=== PATIENT | female | born 1950 | race Caucasian/White ===

== ENCOUNTER → 2016-12-25 | Outpatient (CLI) | payer MEDICARE, OTHER ==
--- NOTE | 2016-12-25 08:58 | US ---
EXAMINATION TYPE: US abdomen complete DATE OF EXAM: 12/25/2016 8:38 AM COMPARISON: NONE CLINICAL HISTORY: Abnormal MRI R93.8. Patient stated MRI was done at [facility] and resul ts showed liver masses; diabetic; HTN; Ht 5'2, Wt 205lbs EXAM MEASUREMENTS: Liver Length: 19.2 cm Gallbladder Wall: 0.2 cm CBD: 0.4 cm Spleen: 9.7 cm Right Kidney: 11.4 x 5.6x 4.7 cm Left Kidney: 12.1 x 5.2 x 5.8 cm TECHNOLOGIST IMPRESSION: exam is limitedly seen due to patient body habitus Pancreas: hyperechoic Liver: enlarged; multiple liver cysts with largest in left lobe = 2.2 x 2.7 x 2.8cm and largest righ t lobe cyst = 2.0 x 2.1 x 1.3cm Gallbladder: full of shadowing stones resulting in sonographic RIK sign at anterior wall Evidence for sonographic Peres's sign: no CBD: wnl Spleen: wnl Right Kidney: no hydro or masses seen Left Kidney: medial mid renal cyst = 2.3 x 2.0 x 1.6cm Upper IVC: wnl Abd Aorta: wnl IMPRESSION: 1. Multiple simple appearing hepatic cysts. 2. 2.1 cm lesion in the anterior segment of the right lobe of the liver does not meet the requirement s of a simple cyst. 3. Simple appearing left renal cyst. RECOMMENDATION: CT versus MRI of the liver.
== END | disposition home or self-care (01) ==
LOC: RADUSWWP 07:57
PROVIDERS: ATTEND Family Medicine
DX: K76.89 Other specified diseases of liver (principal); N28.1 Cyst of kidney, acquired
CPT/HCPCS: 76700

== ENCOUNTER 2017-02-16 07:04 | Day surgery (SDC) | payer MEDICARE, OTHER ==
[2017-02-14 15:48] VITALS: BMI 85.9
[~2017-02-16 07:04] MED LIST: LACTATED RINGERS 1,000 ML IV SCH; LIDOCAINE 1% 20 ML VIAL (10MG/ML) FOR IV START INTRADERMA PRN
[2017-02-16 07:20] VITALS: TEMP 98
[2017-02-16] MEDS ORDERED: LACTATED RINGERS 1,000 ML IV ONE (07:28)
[2017-02-16 07:31] LABS: Glucose,Whole Blood 128 mg/dL (75-99)
[2017-02-16] MEDS ORDERED: PROPOFOL 10 MG/ML 20 ML VIAL IV ONE (07:36)
[2017-02-16 08:14] VITALS: RESP 18
--- NOTE | 2017-02-16 08:18 | P.OP ---
Date of Procedure: 02/16/17 Preoperative Diagnosis: Screening colonoscopy Postoperative Diagnosis: Colon polypsx3 Sigmoid diverticulosis Gluteal soft tissue mass Anal skin tags Procedure(s) Performed: Colonoscopy with hot snare polypectomy 3 Implants: NA Anesthesia: ANTHONYA Surgeon: Fabiana Dc Pathology: other Condition: stable Disposition: PACU Indications for Procedure: 66 years old female presents for first screening colonoscopy. No change in bowel habits. No family history of colon cancer. Informed consent obtained and patient elects to undergo colonoscopy with possible biopsy Operative Findings: 0.5 cm cecal polyp. 1 x 1.5 cm pedunculated sigmoid colon polyp. 0.5 cm rectal polyp Description of Procedure: The patient was brought to the endoscopy suite and placed in lateral decubitus position. IV sedation was given as per anesthesia team. Patient was on continuous vitals and pulse oximetry monitoring throughout the procedure. A timeout was performed to verify correct patient and correct procedure. Perianal examination showed anal skin tag. 2x3 cm soft tissue mass in the left gluteal area. Digital rectal examination was performed. No masses or gross blood. A well-lubricated Olympus colonoscope was passed per rectally and was gradually advanced beyond the sigmoid colon, splenic flexure, transverse colon, hepatic flexure and cecum. The ileocecal valve was visualized as well as the appendiceal orifice . The colonoscope was gradually withdrawn inspecting all the mucosal surfaces. Bowel prep was good. 0.5 cm single polyp in the cecum which was removed using hot snare polypectomy. 1 x 1.5 cm but indurated polyp in the sigmoid colon which was also removed using hot snare polypectomy. Sigmoid diverticulosis noted without any evidence of acute diverticulitis. Single 0.5 cm polyp in the rectum which was removed using hot snare polypectomy The scope was gradually withdrawn and retroflexed in the rectum . No internal hemorrhoids seen. Total withdrawal time was greater than 10 minutes . Patient tolerated the procedure well and was taken to post anesthesia care unit in stable condition. Recommend repeat colonoscopy in 5 years . Final Pathologic Diagnosis A. CECUM, BIOPSY: INFLAMMATORY POLYP. B. COLON, 30 CM, BIOPSY: ADENOMA WITH SURFACE MUCOSAL EROSION. C. RECTUM, BIOPSY: FEATURES CONSISTENT WITH CAUTERIZED ADENOMA, EVALUATION OF THE SPECIMEN IS LIMITED GIVEN MARKED CAUTERY ARTIFACT.
[2017-02-16 08:29] LABS: Glucose,Whole Blood 114 mg/dL (75-99)
[2017-02-16 08:37] VITALS: BP 132/72; PULSE 58
== END 2017-02-16 09:05 | disposition home or self-care (01) ==
LOC: ORWHC2ENDO 07:04
PROVIDERS: ATTEND Surgery
DX: Z12.11 Encounter for screening for malignant neoplasm of colon (principal); K51.40 Inflammatory polyps of colon without complications; D12.5 Benign neoplasm of sigmoid colon; K62.1 Rectal polyp; K57.30 Diverticulosis of large intestine without perforation or abscess without bleeding; K64.4 Residual hemorrhoidal skin tags; R22.2 Localized swelling, mass and lump, trunk; E78.2 Mixed hyperlipidemia; E11.39 Type 2 diabetes mellitus with other diabetic ophthalmic complication; H40.9 Unspecified glaucoma; I10 Essential (primary) hypertension; M19.90 Unspecified osteoarthritis, unspecified site; K80.20 Calculus of gallbladder without cholecystitis without obstruction; E66.01 Morbid (severe) obesity due to excess calories; Z68.41 Body mass index [BMI] 40.0-44.9, adult; Z79.4 Long term (current) use of insulin; Z79.1 Long term (current) use of non-steroidal anti-inflammatories (NSAID); Z79.84 Long term (current) use of oral hypoglycemic drugs; Z79.899 Other long term (current) drug therapy; Z90.49 Acquired absence of other specified parts of digestive tract; Z90.710 Acquired absence of both cervix and uterus
CPT/HCPCS: 45385; 88305; J2704

== ENCOUNTER → 2017-02-20 | Outpatient (CLI) | payer MEDICARE, OTHER ==
[2017-02-20 15:37] LABS: EKG EKG PERFORMED
[2017-02-20 16:11] LABS: Basophils # (A) 0.1 k/uL (0-0.2); Basophils % (A) 1 %; CH 31.7; CHCM 34.4; Eosinophils # (A) 0.2 k/uL (0-0.7); Eosinophils % (A) 2 %; HCT 41.7 % (34.0-46.0); HDW 3.19; HGB 14.2 gm/dL (11.4-16.0); Luc # (Auto) 0.17; Luc % (Auto) 2; Lymphocytes # (A) 2.1 k/uL (1.0-4.8); Lymphocytes % (A) 23 %; MCH 31.4 pg (25.0-35.0); MCV 92.5 fL (80.0-100.0); Mean Platelet Volume 7.5; Monocytes # (A) 0.5 k/uL (0-1.0); Monocytes % (A) 6 %; Neutrophils % (A) 67 %; RBC 4.51 m/uL (3.80-5.40); RDW 14.5 % (11.5-15.5); WBC (Perox) 8.91
[2017-02-20 16:20] LABS: ALT 30 U/L (9-52); AST 21 U/L (14-36); Alkaline Phosphatase 115 U/L (38-126); Anion Gap 12 mmol/L; Blood Urea Nitrogen 19 mg/dL (7-17); Carbon Dioxide 29 mmol/L (22-30); Chloride 102 mmol/L (98-107); Glucose 197 mg/dL (74-99); Non-African American GFR(MDRD) >60 (>60 ml/min/1.73 sqM); Potassium 3.3 mmol/L (3.5-5.1); Sodium 143 mmol/L (137-145); Total Bilirubin 0.7 mg/dL (0.2-1.3); Total Protein 7.1 g/dL (6.3-8.2)
== END ==
LOC: LABPAT 15:19
PROVIDERS: ATTEND Family Medicine
DX: Z01.818 Encounter for other preprocedural examination (principal)
CPT/HCPCS: 80053; 85025; 93005

== ENCOUNTER 2017-02-23 10:42 | Day surgery (SDC) | payer MEDICARE, OTHER ==
[2017-02-22 09:00] VITALS: BMI 38.9
--- NOTE | 2017-02-23 09:45 | P.GSHP ---
History of Present Illness H&P Date: 02/23/17 66 yrs old female presents with intermittent RUQ pain aggravated with fatty food. She has MRI for backpain with incidental findings of liver cysts . US abdomen showed liver cysts and gallstones. No prior colonoscopy. ROS Additionally reports: Constitutional: No fever, chills or rigors. No weight loss or loss of appetite. HEENT: No difficulty with hearing, vision and swallowing. Lymphatic: No axillary, inguinal and cervical swellings. Endocrine: No thyroid disorders. Has history of diabetes. Respiratory: No chest pain, shortness of breath, and cough. No hemoptysis. Cardiovascular: No palpitations, irregular HR Gastrointestinal: Denies heartburn. No change in bowel habits. No nausea or vomiting. Genitourinary: No increase in urinary frequency or urgency. No hematuria. Musculoskeletal: Chronic back pain, joint stiffness or pain. Neurologic: No history of seizure disorder and headaches. Psychiatric: Denies depression or anxiety . No suicidal ideation. Hematologic: Denies any abnormal mucosal bleeding or easy bruising. Physical Exam Patient is a 66-year-old female. Constitutional: General Appearance: well-nourished, well-developed, and obese. Level of Distress: NAD. Ambulation: ambulating normally. Psychiatric: Insight: good judgement. Orientation: to time, place, and person. Head: Head: normocephalic and atraumatic. Eyes: Lids and Conjunctivae: no discharge or pallor and non-injected. Sclerae: non-icteric. ENMT: Oropharynx: moist mucous membranes. Abdomen: Bowel Sounds: normal. Inspection and Palpation: no tenderness or guarding and soft and non-distended. Musculoskeletal:: Motor Strength and Tone: normal and normal tone. Joints, Bones , and Muscles: normal movement of all extremities. Extremities: no cyanosis or edema. Neurologic: Gait and Station: normal gait and station. Cranial Nerves: grossly intact. Skin: Inspection and palpation: Bilateral pitting edema upto ankles. Assessment / Plan 1. Symptomatic cholelithiasis 2. Informed consent obtained from the patient after explaining the risks, benefits and potential complications of laparoscopic cholecystectomy including bleeding, infection, DVT , inadvertent bile duct injury and possibility of converting to open 3. Patient demonstrated understanding of the procedure and agreed to undergo lap braydon possible open 4. Expected post op course discussed including no heavy lifting >10 lbs for 6 weeks post surgery Preop orders: 1. Ancef 2 gm IVPB x1 2. Bilateral lower extremity SCDs 3. Heparin 5000 Units SQ injection x1 1. Screening for malignant neoplasm of colon Z12.11: Encounter for screening for malignant neoplasm of colon 2. Cholelithiasis without obstruction K80.20: Calculus of gallbladder without cholecystitis without obstruction 3. Type 2 diabetes mellitus without complication E11.9: Type 2 diabetes mellitus without complications TYPE 2 DIABETES: CARE INSTRUCTIONS 4. Body mass index 40+ - severely obese Z68.41: Body mass index (BMI) 40.0-44.9, adult 5. Essential hypertension I10: Essential (primary) hypertension HIGH BLOOD PRESSURE: CARE INSTRUCTIONS LEARNING ABOUT HIGH BLOOD PRESSURE Past Medical History Past Medical History: Diabetes Mellitus, Hyperlipidemia, Hypertension Additional Past Medical History / Comment(s): GALLBLADDER DISORDER History of Any Multi-Drug Resistant Organisms: None Reported Past Surgical History: Appendectomy, Section, Hysterectomy, Tonsillectomy Additional Past Surgical History / Comment(s): COLONOSCOPY. CYST REMOVED FROM NECK AREA Past Anesthesia/Blood Transfusion Reactions: No Reported Reaction Past Psychological History: No Psychological Hx Reported Smoking Status: Never smoker Past Alcohol Use History: None Reported Past Drug Use History: None Reported - Past Family History Mother Family Medical History: No Reported History Medications and Allergies Home Medications Medication Instructions Recorded Confirmed Type Atenolol [Tenormin] 50 mg PO HS 02/14/17 02/22/17 History Atorvastatin Calcium [Lipitor] 20 mg PO HS 02/14/17 02/22/17 History Glimepiride [Amaryl] 4 mg PO AC-BRKFST 02/14/17 02/22/17 History Insulin NPH Human Isophane 38 unit SQ AC-SUPPER 02/14/17 02/22/17 History [NovoLIN N] Insulin NPH Human Isophane 42 unit SQ AC-BRKFST 02/14/17 02/22/17 History [NovoLIN N] Losartan/Hydrochlorothiazide 1 tab PO HS 02/14/17 02/22/17 History [Losartan-Hctz 100-25 mg Tab] Naproxen 500 mg PO Q12HR 02/14/17 02/22/17 History Potassium Chloride [Klor-Con 20] 20 meq PO DAILY 02/14/17 02/22/17 History amLODIPine [Norvasc] 10 mg PO HS 02/14/17 02/22/17 History metFORMIN HCL [Glucophage] 1,000 mg PO BID 02/14/17 02/22/17 History Allergies Allergy/AdvReac Type Severity Reaction Status Date / Time No Known Allergies Allergy Verified 02/22/17 08:52
[~2017-02-23 10:42] MED LIST changes: +DEXAMETHASONE SOD PHOSPHATE 10 MG/ML 1 ML VIAL IV ONE; +HYDROmorphone 1 MG/ML 1 ML SYRINGE IVP PRN; -LIDOCAINE 1% 20 ML VIAL (10MG/ML) FOR IV START INTRADERMA PRN; +MIDAZOLAM 2 MG/2 ML VIAL IV PRN; +ceFAZolin 2 GM in SODIUM CHLORIDE 0.9% 100 ML IVPB ONE
[2017-02-23 11:36] LABS: Glucose,Whole Blood 155 mg/dL (75-99)
[2017-02-23] MEDS: ONDANSETRON 4 MG/2 ML VIAL IVP ONE ×2 (11:39→14:30)
[2017-02-23] MEDS ORDERED: LIDOCAINE 1% 20 ML VIAL (10MG/ML) FOR IV START INTRADERMA ONE (11:39)
[2017-02-23] MEDS ORDERED: POTASSIUM CHLORIDE 20 MEQ, LIDOCAINE 2% INJ 20 MG in SODIUM CHLORIDE 0.9% 100 ML IVPB SCH (12:00)
[2017-02-23] MEDS ORDERED: HEPARIN SODIUM,PORCINE 5,000 UNIT/ML 1 ML VIAL SQ ONE (12:02)
[2017-02-23] MEDS ORDERED: GLYCOPYRROLATE 0.2 MG/ML 2 ML VIAL ONE (12:27)
[2017-02-23] MEDS ORDERED: fentaNYL (PF) 50 MCG/ML 2 ML AMP ONE (12:27)
[2017-02-23] MEDS ORDERED: POTASSIUM CHLORIDE 2 MEQ/ML 20 ML VIAL ONE (12:27)
[2017-02-23] MEDS ORDERED: ROCURONIUM BROMIDE 10 MG/ML 10 ML VIAL IV ONE (12:27)
[2017-02-23] MEDS ORDERED: PROPOFOL 10 MG/ML 20 ML VIAL IV ONE (12:27)
[2017-02-23] MEDS ORDERED: MIDAZOLAM 2 MG/2 ML VIAL ONE (12:27)
[2017-02-23] MEDS ORDERED: SUCCINYLCHOLINE CHLORIDE 100 MG/5 ML SYR IV ONE (12:27)
[2017-02-23] MEDS ORDERED: NEOSTIGMINE 1 MG/ML 10 ML VIAL ONE (12:27)
[2017-02-23] MEDS ORDERED: BUPIVACAIN-EPI 0.25%-1:200,000 30 ML VIAL SQ ONE ×2 (12:53)
[2017-02-23 14:26] VITALS: TEMP 97.2
[2017-02-23 14:31] LABS: Glucose,Whole Blood 164 mg/dL (75-99)
[2017-02-23 14:32] VITALS: RESP 16
--- NOTE | 2017-02-23 14:47 | P.OP ---
Date of Procedure: 02/23/17 Preoperative Diagnosis: Symptomatic cholelithiasis Morbid obesity BMI 39 Soft tissue mass left buttock Postoperative Diagnosis: Same Procedure(s) Performed: Laparoscopic cholecystectomy Excision of soft tissue mass left buttock Anesthesia: VIVIANA, local Surgeon: Fabiana Dc Estimated Blood Loss (ml): 5 Pathology: other Condition: stable Disposition: PACU Indications for Procedure: 66 years old female presented with right upper quadrant pain. Ultrasound showed gallstones. She also had a soft tissue mass in the left buttock area. Informed consent obtained and patient elected to undergo laparoscopic cholecystectomy and possible open and excision of soft tissue mass left buttock. Description of Procedure: The patient was brought to the operating room and placed in supine position with both arms out. General anesthesia with endotracheal intubation was performed as per anesthesia team. Chlorhexidine was used to prep the abdomen followed by application of sterile drapes. A timeout was performed to verify correct patient and correct procedure. Patient was confirmed to receive perioperative IV antibiotics , heparin 5000 units subcutaneous injection and bilateral SCDs were placed. A 5 mm skin incision was made below the left costal margin at the anterior axillary line. A Veress needle was inserted and pneumoperitoneum was established to a pressure of 15 mmHg. A 5 mm Optiview trocar was loaded on a 5 mm 30 laparoscope and the peritoneal cavity was entered under direct vision using the Optiview technique. Additional 5 mm trocar was placed in the supraumbilical location and two 5 mm trocars along the right subcostal margin. The left 5 mm trocar was upsized to 10mm. The patient was placed in reverse Trendelenburg with right side up. The fundus of the gallbladder was grasped with an atraumatic grasper and was retracted over the dome of the liver. The infundibulum was grasped with an atraumatic grasper and retracted towards the pelvis to expose the Calot's triangle. Lateral and medial peritoneal attachment of the gallbladder bladder was dissected. Circumferential dissection was carried out around the cystic artery and the cystic duct to obtain adequate length for clip application. All the surrounding fibrofatty tissue were removed. Critical view was obtained with cystic duct and cystic artery as the only two structures entering the gallbladder. Two clips were applied on the patient's side and one on the specimen side on the cystic duct first followed by the cystic artery. Endoshears were used to divide the cystic duct and the cystic artery. The gallbladder was taken off the liver bed using a L-hook. It was placed in an endocatch specimen bag and removed through the 10mm port. The gallbladder was passed off as a specimen. The abdominal cavity was inspected. The clips on the cystic duct and cystic artery stump were intact and no bleeding noted from the liver bed. All the trocar sites were examined and no evidence of bleeding. The 10mm port site was closed with two transfascial sutures of 0 Vicryl using a Dante Meme device. The pneumoperitoneum was evacuated and all the trocars were removed. Local anesthetic was infiltrated along the trocar sites and incisions were closed using 4-0 Monocryl followed by application of Dermabond skin glue. The sponge, instrument and needle count were correct x2. Patient was then positioned in lateral decubitus position. Chlorhexidine was used to prep the left buttock. A 3 x 4 cm soft tissue mass was identified in the left buttock. This was circumferentially excised. This was dissected off the surrounding subcu tissues tissue. Final post-excisional measurements were 3 x 4 x 2 cm. This was closed in 2 layers using interrupted sutures of 3-0 Vicryl and vertical mattress sutures of 3-0 nylon. The sponge, instrument and needle count were correct 2. Patient was extubated and taken to post anesthesia care unit in stable condition.
[2017-02-23] MEDS ORDERED: METOCLOPRAMIDE 5 MG/ML 2 ML VIAL IVP ONE (14:53)
[2017-02-23 16:47] VITALS: PULSE 80
[2017-02-23 16:56] VITALS: BP 145/69
== END 2017-02-23 17:37 | disposition home or self-care (01) ==
LOC: OR 10:42
PROVIDERS: ATTEND Surgery
DX: K80.10 Calculus of gallbladder with chronic cholecystitis without obstruction (principal); E66.01 Morbid (severe) obesity due to excess calories; Z68.39 Body mass index [BMI] 39.0-39.9, adult; D17.1 Benign lipomatous neoplasm of skin and subcutaneous tissue of trunk; M79.89 Other specified soft tissue disorders; I10 Essential (primary) hypertension; E11.9 Type 2 diabetes mellitus without complications; Z79.84 Long term (current) use of oral hypoglycemic drugs; Z79.4 Long term (current) use of insulin; Z79.891 Long term (current) use of opiate analgesic; Z79.899 Other long term (current) drug therapy
CPT/HCPCS: 47562; 21931; 88304; 88305; 84132; J2250; J1644; J1100; J2710; J2765; J0690; J2405; J3480; J3010; J0330; J2704

== ENCOUNTER → 2018-06-10 | Outpatient (CLI) | payer MEDICARE, OTHER ==
--- NOTE | 2018-06-10 15:40 | US ---
EXAMINATION TYPE: US venous doppler duplex LE BI DATE OF EXAM: 06/10/2018 3:24 PM COMPARISON: NONE CLINICAL HISTORY: R60.0 Edema bilateral lower extremities. Bilateral leg pain. No redness. No hx of blood clots. Not on blood thinners. SIDE PERFORMED: Bilateral TECHNIQUE: The lower extremity deep venous system is examined utilizing real time linear array sonog baylee with graded compression, doppler sonography and color-flow sonography. VESSELS IMAGED: External Iliac Vein (EIV) Common Femoral Vein Deep Femoral Vein Greater Saphenous Vein * Femoral Vein Popliteal Vein Small Saphenous Vein * Proximal Calf Veins (* superficial vessels) Limited exam due to patient body habitus Right Leg: Negative for DVT Left Leg: Negative for DVT Grayscale, color doppler, spectral doppler imaging performed of the deep veins of the lower extremiti es. There is normal flow, compressibility, vascular waveforms. IMPRESSION: Slightly limited exam due to patient body habitus, however no sonographic evidence of de ep venous thrombosis is seen within either lower extremity.
[2018-06-10 16:01] LABS: Basophils % (A) 0 %; Eosinophils # (A) 0.2 k/uL (0-0.7); Eosinophils % (A) 2 %; HCT 39.2 % (34.0-46.0); HGB 13.4 gm/dL (11.4-16.0); Lymphocytes # (A) 1.3 k/uL (1.0-4.8); Lymphocytes % (A) 16 %; MCH 30.9 pg (25.0-35.0); MCHC 34.2 g/dL (31.0-37.0); MCV 90.3 fL (80.0-100.0); Mean Platelet Volume 7.6; Monocytes # (A) 0.5 k/uL (0-1.0); Monocytes % (A) 6 %; Neutrophils # (A) 5.7 k/uL (1.3-7.7); Neutrophils % (A) 74 %; Platelet Count 263 k/uL (150-450); RBC 4.34 m/uL (3.80-5.40); RDW 13.3 % (11.5-15.5); WBC 7.7 k/uL (3.8-10.6)
[2018-06-10 16:17] LABS: Anion Gap 9 mmol/L; Blood Urea Nitrogen 19 mg/dL (7-17); Calcium 10.8 mg/dL (8.4-10.2); Carbon Dioxide 30 mmol/L (22-30); Chloride 101 mmol/L (98-107); Glucose 218 mg/dL (74-99); Potassium 3.3 mmol/L (3.5-5.1); Sodium 140 mmol/L (137-145)
== END | disposition home or self-care (01) ==
LOC: RADUSMAIN 14:47
PROVIDERS: ATTEND Physician Assistant
DX: R60.0 Localized edema (principal)
CPT/HCPCS: 36415; 80048; 85025; 93970

== ENCOUNTER → 2018-11-04 | Outpatient (CLI) | payer MEDICARE, OTHER ==
--- NOTE | 2018-11-07 11:32 | MM ---
Reason for exam: screening (asymptomatic). Last mammogram was performed 2 years and 1 month ago. History: Patient is postmenopausal. Excisional biopsy of the left breast, January 04, 2007. Took estrogen for 1 year beginning at age 50. Physical Findings: A clinical breast exam by your physician is recommended on an annual basis and results should be correlated with mammographic findings. MG 3D Screening Mammo W/Cad Bilateral CC and MLO view(s) were taken. Prior study comparison: October 16, 2016, bilateral MG 3d screening mammo w/cad. November 14, 2013, bilateral digital screening mammo w/CAD. The breast tissue is heterogeneously dense. This may lower the sensitivity of mammography. Finding: There are typically benign round, linear calcifications in both breasts. There is no discrete abnormality. ASSESSMENT: Benign, BI-RAD 2 RECOMMENDATION: Routine screening mammogram of both breasts in 1 year.
== END | disposition home or self-care (01) ==
LOC: RADMAMWWP 09:10
PROVIDERS: ATTEND Family Medicine
DX: Z12.31 Encounter for screening mammogram for malignant neoplasm of breast (principal)
CPT/HCPCS: 77063; 77067

== ENCOUNTER → 2018-11-15 | Outpatient (CLI) | payer MEDICARE, OTHER ==
--- NOTE | 2018-11-18 08:08 | BD ---
EXAMINATION TYPE: Axial Bone Density DATE OF EXAM: 11/15/2018 COMPARISON: 10/16/2016 DEXA bone scan. CLINICAL HISTORY: Asymptomatic postmenopausal female. Height: 61.5 IN Weight: 224 LBS RISK FACTORS HISTORY OF: Active: YES Postmenopausal woman: AGE 48 Take estrogen and/or progesterone medications: NOT NOW How long: AGE 50 - 49 MEDICATIONS: Thyroid Medications: YES Which medication: Levothyroxine How Lon MONTHS Additional Medications: VIT D, LEVOTHYROXINE, AMLODIPINE, ATENOLOL, ATORVASTATIN, GLIMEPIRIDE, HYDROC ODONE, KLOR-CON, LANTUS U 100, LATANOPROST, LOSARTAN, METFORMIN, NAPROXEN, NOVOLIN EXAM MEASUREMENTS: Bone mineral densitometry was performed using the Switchcam System. Bone mineral density as measured about the Lumbar spine is: ----- L1-L4(G/cm2): 1.137 T Score Values are as follows: ----- L2: -0.7 ----- L3: 0.5 ----- L4: -0.6 ----- L1-L4: -0.4 Bone mineral density has: Decreased -0.7% since study of: 10/16/2016 Bone mineral density about the R hip (g/cm2): 0.840 Bone mineral density about the L hip (g/cm2): 0.915 T Score values are as follows: -----R Neck: -1.4 -----L Neck: -0.9 -----R Total: -0.8 -----L Total: -0.3 Bone mineral density has: Decreased -1.3% since study of: 10/16/2016 IMPRESSION: Osteopenia (T Score between -2.5 and -1) femoral neck level right hip. There is slightly increased risk of fracture and the patient may be considered for treatment. Re-Screen 2-5 years. NOTE: T-SCORE=SD OF THE YOUNG ADULT MEAN.
== END | disposition home or self-care (01) ==
LOC: RADBDWWP 07:19
PROVIDERS: ATTEND Family Medicine
DX: M85.80 Other specified disorders of bone density and structure, unspecified site (principal); Z78.0 Asymptomatic menopausal state
CPT/HCPCS: 77080

== ENCOUNTER → 2019-02-10 | Outpatient (CLI) | payer MEDICARE, OTHER ==
[2019-02-10 09:19] LABS: Blood Urea Nitrogen 20 mg/dL (7-17)
--- NOTE | 2019-02-10 10:42 | CT ---
EXAMINATION TYPE: CT abdomen w con DATE OF EXAM: 02/10/2019 HISTORY: Liver cyst per order. Spots on liver found by back DrTessa during pain injections per patient. CT DLP: 2331.4mGycm Automated Exposure Control for Dose Reduction was Utilized. CONTRAST: CT scan of the abdomen is performed with IV Contrast, patient injected with 100 mL of Isovue 300. COMPARISON: Complete abdominal ultrasound December 25, 2016 FINDINGS: LUNG BASES: There is tiny right pleural effusion there is left basilar linear scarring and/or atelect asis. There is right midlung linear scarring and/or atelectasis axial image 2. Few scattered small no dules right lung are present right lung axial images 4, 6, and 8. Largest axial image 4 measures 4 x 3 mm. Cardiomegaly is present. Small to tiny pericardial effusion is seen inferiorly. LIVER/GB: Centrally in the liver there is 2.8 cm simple appearing cyst seen axial image 21. There are smaller hypodense lesions scattered throughout the liver, I do identify roughly 7-8 additional lesio ns. Additional lesions are too small to further characterize but favor simple cysts. Cholecystectomy clips are present. PANCREAS: Mild generalized fat replaced atrophy of pancreas is seen. SPLEEN: No significant abnormality is seen. ADRENALS: Slightly 8 mm nodular thickening centrally right adrenal gland axial image 30 is noted. KIDNEYS: No significant abnormality is seen. BOWEL: Some scattered colonic diverticula are present most prominent involving the left and sigmoid c olon. There is no CT evidence for acute diverticulitis. Oral contrast does not reach terminal ileum. LYMPH NODES: No greater than 1cm abdominal lymph nodes are appreciated. OSSEOUS STRUCTURES: Slight grade 1 anterolisthesis of L4 on L5. OTHER: No significant additional abnormality is seen. IMPRESSION: Simple appearing thin-walled hepatic cysts. No suspicious solid or cystic intrahepatic ma ss. Scattered small nodules in the right lung base with tiny right pleural effusion. Consider chest C T evaluation to rule out greater than 4 mm nodules
== END | disposition home or self-care (01) ==
LOC: RADCTMAIN 07:49
PROVIDERS: ATTEND Family Medicine
DX: K76.89 Other specified diseases of liver (principal)
CPT/HCPCS: 82565; 84520; 74160; 36415; Q9967

== ENCOUNTER → 2019-02-24 | Outpatient (CLI) | payer MEDICARE, OTHER ==
[2019-02-24 14:04] LABS: Blood Urea Nitrogen 25 mg/dL (7-17)
--- NOTE | 2019-02-24 15:51 | CT ---
EXAMINATION TYPE: CT chest w con DATE OF EXAM: 02/24/2019 COMPARISON: CT abdomen February 10, 2019 HISTORY: Lung nodules, recent abnormal CT. CT DLP: 835.50 mGycm. Automated Exposure Control for Dose Reduction was Utilized. TECHNIQUE: CT scan of the thorax is performed following with IV Contrast, patient injected with 100 ml mL of Isovue 300. FINDINGS: LUNGS: There is interval resolution of tiny right pleural effusion. There is persistent left midlung linear scarring and/or atelectasis extending anteriorly. Few scattered right lung micronodules remain present, for reference anteriorly axial image 24 and laterally axial image 25 with largest once agai n seen axial image 33 measuring 4 x 3 mm. There is additional 5 x 4 mm nodule anteriorly right midlun g axial image 19. No greater than 4 mm left-sided nodules are present. MEDIASTINUM: There are no greater than 1 cm hilar or mediastinal lymph nodes. Cardiomegaly is seen. There is small to borderline moderate sized pericardial effusion redemonstrated. OTHER: Cholecystectomy clips are again seen. There are several. Heterogeneous hypodense lesions throu ghout the liver redemonstrated felt to reflect thin-walled cysts. Mild generalized fat replaced atrop hy of pancreas is again seen. Mild to moderate multilevel spurring in the thoracic spine is redemonst rated. IMPRESSION: Scattered small nodules right lung base redemonstrated without significant interval alarcon e. There is 5 x 4 mm anterior right mid lung nodule also noted. Advise CT follow-up in one year time to reassess as per Fleischner study recommendations.
== END ==
LOC: RADCTMAIN 13:11
PROVIDERS: ATTEND Family Medicine
DX: R91.8 Other nonspecific abnormal finding of lung field (principal)
CPT/HCPCS: 82565; 84520; 71260; 36415; Q9967

== ENCOUNTER → 2021-03-14 | Outpatient (CLI) | payer MEDICARE, OTHER ==
[2021-03-14 09:48] VITALS: BP 181/75; PULSE 109; RESP 16; TEMP 98.3
--- NOTE | 2021-03-14 10:10 | P.PAINCN ---
History of Present Illness - Reason for Consult Consult date: 03/14/21 - History of Present Illness This is 50 years old female with a chronic history of severe low back pain, started more than 10 years ago, she reported that the pain is constant and localized in the low back area and increased with any activity, she was treated at [facility], with RFA of the medial branch lumbar area, and she had excellent pain relief, after the radiofrequency, and the last radiofrequency was done in May 2020, currently she is complaining of increased low back pain, the pain is constant localized in the back radiated to the buttock bilaterally, he denies any motor or sensory deficit she denies any fever or night sweats, no change in bowel movement or urination Past Medical History Past Medical History: Diabetes Mellitus, Hypertension, Musculoskeletal Disorder, Osteoarthritis (OA), Thyroid Disorder Additional Past Medical History / Comment(s): resting heart rate has been in 40's @times when comes in for procedures History of Any Multi-Drug Resistant Organisms: None Reported Past Surgical History: Section, Cholecystectomy, Hysterectomy, Tonsillectomy Additional Past Surgical History / Comment(s): COLONOSCOPY, pain procedures,. CYST REMOVED FROM NECK AREA Past Anesthesia/Blood Transfusion Reactions: No Reported Reaction Past Psychological History: No Psychological Hx Reported Smoking Status: Never smoker Past Alcohol Use History: None Reported Past Drug Use History: None Reported - Past Family History Mother Family Medical History: Cancer, Hypertension Father Family Medical History: Congestive Heart Failure (CHF) Medications and Allergies Home Medications Medication Instructions Recorded Confirmed Type Atorvastatin Calcium [Lipitor] 20 mg PO HS 02/14/17 03/14/21 History Glimepiride [Amaryl] 4 mg PO AC-BRKFST 02/14/17 03/14/21 History Insulin NPH Human Isophane 25 unit SQ AC-SUPPER 02/14/17 03/14/21 History [NovoLIN N] Insulin NPH Human Isophane 30 unit SQ AC-BRKFST 02/14/17 03/14/21 History [NovoLIN N] Losartan/Hydrochlorothiazide 1 tab PO HS 02/14/17 03/14/21 History [Losartan-Hctz 100-25 mg Tab] Naproxen 500 mg PO Q12HR 02/14/17 03/14/21 History Potassium Chloride [Klor-Con 20] 20 meq PO DAILY 02/14/17 03/14/21 History amLODIPine [Norvasc] 10 mg PO HS 02/14/17 03/14/21 History atenoloL [Tenormin] 50 mg PO HS 02/14/17 03/14/21 History metFORMIN HCL [Glucophage] 1,000 mg PO HS 02/14/17 03/14/21 History Hydrocodone/Acetaminophen [[place] 1 each PO Q6HR PRN #30 tab 02/23/17 03/14/21 Rx 5-325] Insulin Glargine [Lantus] 50 unit SQ HS 03/10/21 03/14/21 History Levothyroxine Sodium [Synthroid] 75 mcg PO DAILY 03/10/21 03/14/21 History Allergies Allergy/AdvReac Type Severity Reaction Status Date / Time No Known Allergies Allergy Verified 03/10/21 14:41 Physical Exam Vitals: Vital Signs Temp Pulse Resp BP Pulse Ox 03/14/21 09:43 98.3 F 109 H 16 181/75 92 L Physical Examinations : -Constitutiona : Cooperative , not in acute distress . -HEENT : nech : supple , no Lymphadenopathy , normal thyroid size . : eyes : no ptosis , no icterus, no photophobia . - neurologic : Cranial nerve II to XII intact , no focal neurological deffecit . -psychatric : alert , oriented X 3 , appropriate affect , intact judgment and insight . -Lymphatic : no Lymphadenopathy . - musculoskeltal : Lumber spine moter stegnth lower extremities ,thigh and legs 5/5 Right side , 5/5 Left side deep tendon reflexes : normal Knee Jerk , normal ankle Jerk lumber facet Loading Test =positive Right , positive Left Range of motion of the lumbar spine Flexion 30 degrees, extension 10 degrees strait leg raising test = positive at 45 degree left side, negative on the right side Fabere test= positive Right , and positive LT . Sever tenderness over the Sacroiliac joint on the Right , and Left sides Gaenslen test= positive right ,and positive left . Seated flexion test= positive right ,and positive Left . Distraction test= positive bilaterally Results Comments: MRI of the lumbar spine multilevel lumbar degenerative disc disease multilevel lumbar facet arthropathy and multilevel . Assessment and Plan Plan: Assessment and plan=1-lumbar spondylosis with lumbar facet arthropathy without myelopathy. 2-lumbar degenerative disc disease. 3-bilateral sacroiliitis. she could benefit from repeat RFA of the medial branch lumbar area bilaterally at L3, L4, L5 Time with Patient: Greater than 30 PQRS Measure Charge Sheet Measure #130: Documentation of Current Meds in Medical Chart: Patient's medications documented in chart Measure #226: Tobacco Use: Screen & Cessation Intervention: Pt not a tobacco user Measure #111: Pneumonia Vaccination: Pneumococcal vaccine NOT administered or previously given Measure #47: Advance Care Plan: Advance care planning discussed & documented, pt chose/unable to give Measure #412: Opioid Treatment Agreement: No documentation of signed opioid treatment agreement Measure #408: Opioid Therapy Follow-up Evaluation: Patient had NO f/u eval minimum every 3 months during opioid therapy Measure #317: Preventitive Care & Scrn High Bld Press & F/U: Pre-hypertensive or hypertensive BP documented, pt will f/u with PCP Measure #128: Body Mass Index (BMI) Screening & Follow-up: BMI documented ABOVE normal parameters - f/u documented Measure #131: Pain Assessment & Follow-up: Pain positive & plan documented, Follow-up scheduled Measure #431: Unhealthy Alcohol Use Preventative Care & Scrn: Patient not identified as an unhealthy alcohol user PQRS Narrative: Smoking Status Never smoker Blood Pressure 181/75 Pain Intensity [Lower Back] 5 Scale Used Numeric (1 - 10) Hx Alcohol Use (MH) No Home Medications: Ambulatory Orders Atorvastatin Calcium [Lipitor] 20 mg PO HS 02/14/17 Glimepiride [Amaryl] 4 mg PO AC-BRKFST 02/14/17 Insulin NPH Human Isophane [NovoLIN N] 25 unit SQ AC-SUPPER 02/14/17 Insulin NPH Human Isophane [NovoLIN N] 30 unit SQ AC-BRKFST 02/14/17 Losartan/Hydrochlorothiazide [Losartan-Hctz 100-25 mg Tab] 1 tab PO HS 02/14/17 Naproxen 500 mg PO Q12HR 02/14/17 Potassium Chloride [Klor-Con 20] 20 meq PO DAILY 02/14/17 amLODIPine [Norvasc] 10 mg PO HS 02/14/17 atenoloL [Tenormin] 50 mg PO HS 02/14/17 metFORMIN HCL [Glucophage] 1,000 mg PO HS 02/14/17 Hydrocodone/Acetaminophen [[place] 5-325] 1 each PO Q6HR PRN #30 tab 02/23/17 Insulin Glargine [Lantus] 50 unit SQ HS 03/10/21 Levothyroxine Sodium [Synthroid] 75 mcg PO DAILY 03/10/21
== END ==
LOC: PNWHC3 09:04
PROVIDERS: ATTEND Specialist
DX: M47.816 Spondylosis without myelopathy or radiculopathy, lumbar region (principal); M51.36 Other intervertebral disc degeneration, lumbar region; M46.1 Sacroiliitis, not elsewhere classified; E11.9 Type 2 diabetes mellitus without complications; I10 Essential (primary) hypertension; M19.90 Unspecified osteoarthritis, unspecified site; Z79.4 Long term (current) use of insulin
CPT/HCPCS: 99211

== ENCOUNTER 2021-04-01 06:09 | Day surgery (SDC) | payer MEDICARE, OTHER ==
[2021-03-30 13:10] VITALS: BMI 38.9
[~2021-04-01 06:09] MED LIST changes: -DEXAMETHASONE SOD PHOSPHATE 10 MG/ML 1 ML VIAL IV ONE; -HYDROmorphone 1 MG/ML 1 ML SYRINGE IVP PRN; -MIDAZOLAM 2 MG/2 ML VIAL IV PRN; -ceFAZolin 2 GM in SODIUM CHLORIDE 0.9% 100 ML IVPB ONE
[2021-04-01 06:50] LABS: Glucose,Whole Blood 137 mg/dL (75-99)
[2021-04-01 06:51] VITALS: TEMP 97.3
[2021-04-01] MEDS ORDERED: ROPIVACAINE 5MG/ML 20ML VIAL ONE (06:58)
[2021-04-01] MEDS ORDERED: methylPREDNISolone ACETATE 40 MG/ML 1 ML VIAL ONE (06:58)
[2021-04-01] MEDS ORDERED: MIDAZOLAM 2 MG/2 ML VIAL ONE (06:58)
[2021-04-01] MEDS ORDERED: fentaNYL (PF) 50 MCG/ML 2 ML AMP ONE (06:58)
--- NOTE | 2021-04-01 07:38 | P.PCN ---
Date of Procedure: 04/01/21 Procedure(s) Performed: PREOPERATIVE DIAGNOSIS: 1-Lumbar Spondylosis with Facet Arthropathy without myelopathy. 2- Lumber degenerative disc disease POSTOPERATIVE DIAGNOSIS: 1- Lumbar Spondylosis with Facet Arthropathy without myelopathy. 2- Lumber degenerative disc disease. PROCEDURES : Bilateral Radiofrequency thermocoagulation, L3 , L4 , and L5 medial branch, with fluoroscopic guidance (fluoroscopy images available in the radiology department) ( to denervate the facet joint at L4-5 ,and L5-S1 levels ). ANESTHESIA: Monitored anesthesia care as per anesthesia department. EBL: Minimal PROCEDURE INDICATION: The patient with low back pain secondary to lumbar facet arthropathy who had more than 50% relief of her pain with previous diagnostic lumbar medial branch block with bupivacaine. PROCEDURE DESCRIPTION / TECHNIQUE: The patient was seen and identified in the preoperative area. Risks, benefits, complications, including but not limited to risk of infection ,bleeding , allergic reactions to the medications and no complete pain releife , and alternatives were discussed with the patient, the patient agreed to proceed with the procedure and signed the consent. IV was started. Vital signs remained stable throughout the procedure. Patient was taken to the OR and time out was completed. The patient was placed in the prone position on the procedure table. The lumber area was prepped and draped in the usual sterile fashion. . Vital signs were closely monitored during the procedure .IV sedation was used during the procedure to decrease patients anxiety. Using AP and then oblique fluoroscopy, the ``eye of the Sean dog corresponding to the connection between the superior and transverse articular processes of right L3, L4, and L5 were identified, marked, and localized with 1% lidocaine. Subsequently, a 18 -su (VENUM ) radiofrequency cannula with a 10-mm active tip was advanced guided by fluoroscopy to each of the``eyes of the Sean dog at right L3, L4, and L5. Each site then underwent sensory testing at 50 Hz and 0 to 1 volt and motor testing at 2.5 Hz and 0 to 3 volt with local stimulation, but no radicular symptoms down the legs. Thereafter each sites underwent radiofrequency thermocoagulation at 80 degrees celsius for 90 seconds after injecting 0.5 ml of PF Ropivacaine 1ml, then after the thermocoagulation done , 1 ml of the block solution containing Depo-Medrol 20 mg and 3 ml of Ropivacaine 0.5% was injected at the right L3 , L4 , and L5 , levels after negative aspiration of CSF and blood and with no paresthesias. Cannulas were retracted while injecting lidocaine 1% until the needle is out. The same procedure was repeated at the level of Left L3, L4, and L5 levels. At the end of the procedure, the skin was cleansed and bandages were applied. COMPLICATIONS: No acute complications. DISPOSITION / PLANS: The patient was placed in a supine position and transferred to the recovery area in a stable condition for observation and was discharged from the recovery room after meeting discharge criteria. Home discharge instructions given to the patient by the staff. The patient was reexamined prior to discharge. The patient will schedule a follow up in the clinic in 2-4 weeks.
[2021-04-01] MEDS ORDERED: IV FLUID CONTINUATION 1,000 ML IV ONE (07:51)
--- NOTE | 2021-04-01 07:51 | FL ---
Fluoroscopy History: RADIO FREQ MARILYN LUMBAR Fl time 19 sec.
[2021-04-01 08:03] VITALS: BP 137/78; PULSE 78; RESP 18
== END 2021-04-01 08:15 | disposition home or self-care (01) ==
LOC: ORPAIN 06:09
PROVIDERS: ATTEND Specialist
DX: M47.816 Spondylosis without myelopathy or radiculopathy, lumbar region (principal); M51.36 Other intervertebral disc degeneration, lumbar region; I10 Essential (primary) hypertension; E11.9 Type 2 diabetes mellitus without complications; Z79.4 Long term (current) use of insulin; Z79.899 Other long term (current) drug therapy
CPT/HCPCS: 64635; 64636; J2250; J1030; J3010; J2795

== ENCOUNTER → 2021-04-25 | Outpatient (CLI) | payer MEDICARE, OTHER ==
--- NOTE | 2021-04-26 08:50 | P.PN ---
Subjective Progress Note Date: 04/25/21 this is for visit for this 71 years old female with a chronic history of severe low back pain she is diagnosed with lumbar spondylosis with lumbar facet arthropathy, lumbar degenerative disc disease, bilateral sacroiliitis, recently had an RFA of the medial branch lumbar area, and she is complaining of severe low back pain mostly in the buttock and radiation to the buttock area, denies any motor or sensory deficit she denies any fever or numbness with under is no focal neurological deficit,he continued to use naproxen twice a day and she has no side effect from it, he continued to have severe low back pain Objective - Vital Signs Vital signs: Vital Signs Temp 98.1 F 04/25/21 11:11 Pulse 47 L 04/25/21 11:11 Resp 18 04/25/21 11:11 BP 171/115 04/25/21 11:11 Pulse Ox 97 04/25/21 11:11 - Exam Physical Examinations : -Constitutiona : Cooperative , not in acute distress . -HEENT : nech : supple , no Lymphadenopathy , normal thyroid size . : eyes : no ptosis , no icterus, no photophobia . - neurologic : Cranial nerve II to XII intact , no focal neurological deffecit . -psychatric : alert , oriented X 3 , appropriate affect , intact judgment and insight . -Lymphatic : no Lymphadenopathy . - musculoskeltal : Lumber spine moter stegnth lower extremities ,thigh and legs 5/5 Right side , 5/5 Left side deep tendon reflexes : normal Knee Jerk , normal ankle Jerk lumber facet Loading Test =positive Right , positive Left Range of motion of the lumbar spine Flexion 30 degrees, extension 10 degrees strait leg raising test = positive at 45 degree left side, negative on the right side Fabere test= positive Right , and positive LT . Sever tenderness over the Sacroiliac joint on the Right , and Left sides Gaenslen test= positive right ,and positive left . Seated flexion test= positive right ,and positive Left . Distraction test= positive bilaterally Assessment and Plan Plan: MRI of the lumbar spine multilevel lumbar degenerative disc disease multilevel lumbar facet arthropathy and multilevel . Assessment and plan=1-lumbar spondylosis with lumbar facet arthropathy without myelopathy. 2-lumbar degenerative disc disease. 3-bilateral sacroiliitis. she could benefit frombilateral sacroiliac joint steroid injections under fluoroscopy guidance PQRS Measure Charge Sheet Measure #130: Documentation of Current Meds in Medical Chart: Patient's medications documented in chart Measure #226: Tobacco Use: Screen & Cessation Intervention: Pt not a tobacco user Measure #111: Pneumonia Vaccination: Pneumococcal vaccine NOT administered or previously given Measure #47: Advance Care Plan: Advance care planning discussed & documented, pt chose/unable to give Measure #412: Opioid Treatment Agreement: No documentation of signed opioid treatment agreement Measure #408: Opioid Therapy Follow-up Evaluation: Patient had NO f/u eval minimum every 3 months during opioid therapy Measure #317: Preventitive Care & Scrn High Bld Press & F/U: Pre-hypertensive or hypertensive BP documented, pt will f/u with PCP Measure #128: Body Mass Index (BMI) Screening & Follow-up: BMI documented ABOVE normal parameters - f/u documented Measure #131: Pain Assessment & Follow-up: Pain positive & plan documented, Follow-up scheduled Measure #431: Unhealthy Alcohol Use Preventative Care & Scrn: Patient not identified as an unhealthy alcohol user Time with Patient: Less than 30
== END ==
CPT/HCPCS: 99211

== ENCOUNTER 2021-05-10 06:11 | Day surgery (SDC) | payer MEDICARE, OTHER ==
[2021-05-05 12:03] VITALS: BMI 38.7
[2021-05-10 06:38] VITALS: TEMP 97.4
[2021-05-10 06:46] LABS: Glucose,Whole Blood 96 mg/dL (75-99)
[2021-05-10] MEDS ORDERED: fentaNYL (PF) 50 MCG/ML 2 ML AMP ONE (06:53)
[2021-05-10] MEDS ORDERED: MIDAZOLAM 2 MG/2 ML VIAL ONE (06:53)
[2021-05-10] MEDS ORDERED: ROPIVACAINE 5MG/ML 20ML VIAL ONE (06:53)
[2021-05-10] MEDS ORDERED: methylPREDNISolone ACETATE 40 MG/ML 1 ML VIAL ONE (06:53)
--- NOTE | 2021-05-10 07:18 | P.PCN ---
Date of Procedure: 05/10/21 Procedure(s) Performed: Procedure= bilateral sacroiliac joints steroid injection under fluoroscopy guidance (fluoroscopy image stored on file in the radiology Department ) Preoperative diagnosis= 1-sacroiliitis 2-lumbar degenerative disc disease 3- lumbar spondylosis with lumbar facet arthropathy Postoperative diagnosis=Same as preop Diagnosis . Complication = none Condition= stable Anesthesia= moderate sedation with intravenous Versed 1 mg , and fentanyl 50 micrograms . Indication for the procedure= patient complaining of low back pain , examination was positive for severe tenderness over the sacroiliac joints bilaterally and patient diagnosed with sacroiliitis, for this reason she was good candidate for sacroiliac joint steroid injection. Description of the procedure= procedure risk and benefits discussed with the patient, including but not limited, risk of infection and bleeding, and ALLERGIC reaction to the medication and not complete pain relief and patient agreed with the preceding patient taken to the operating room, placed in prone position or standard monitors applied to the patient then after induction of anesthesia back prepped with chlorhexidine 3 times , Then under strict sterile technique, first I did the right sacroiliac joint the which was identified under fluoroscopy guidance been local infiltration of the skin and subcu interstitial with lidocaine 1% then 22-gauge 5 inches longQuincke Needle advanced slowly under fluoroscopy and placed in the right sacroiliac joint needle placement confirmed with AP and oblique and lateral view and after appropriate needle placement confirmed and after negative aspiration, or heme , then Ropivacaine 0.5% 4 mL, and 20 mg of Depo-Medrol mixed together and injected in the right sacroiliac joint after negative aspiration patient tolerated the procedure well without any complication. Then the left sacroiliac joint steroid injection done under strict sterile technique local infiltration of the skin and subcu interstitial at the location of the left sacroiliac joint then a 22-gauge5 inches long Quincke Needle advanced slowly under fluoroscopy time placed in the left sacroiliac joint, needle placement confirmed with AP and oblique and lateral view then after appropriate needle placement confirmed and after negative aspiration 0.5% Marcaine 4 mL and 20 mg of Depo-Medrol injected in the left sacroiliac joint after negative aspiration patient tolerated the procedure well that any complications and she will follow up in clinic 3 weeks
[2021-05-10 07:21] VITALS: RESP 16
--- NOTE | 2021-05-10 07:36 | FL ---
Fluoroscopy History: John SI Inj 10sec fluoro time. 2 images to PACS
[2021-05-10 07:37] VITALS: BP 148/66; PULSE 37
[2021-05-10] MEDS ORDERED: IV FLUID CONTINUATION 1,000 ML IV ONE (07:37)
== END 2021-05-10 07:50 | disposition home or self-care (01) ==
LOC: ORPAIN 06:11
PROVIDERS: ATTEND Specialist
DX: M46.1 Sacroiliitis, not elsewhere classified (principal); M51.36 Other intervertebral disc degeneration, lumbar region; M47.816 Spondylosis without myelopathy or radiculopathy, lumbar region; E11.9 Type 2 diabetes mellitus without complications
CPT/HCPCS: J2250; J1030; J3010; J2795; G0260; 99152

== ENCOUNTER → 2021-05-30 | Outpatient (CLI) | payer MEDICARE, OTHER ==
[2021-05-30 11:12] VITALS: BP 175/78; PULSE 51; RESP 18; TEMP 98.3
--- NOTE | 2021-05-30 11:34 | P.PN ---
Subjective Progress Note Date: 05/30/21 This is a 71-year-old lady with history of lower back pain with occasional radiation to the lower extremities. The patient had lumbar medial branch RFA in which helped her pain however left knee down in her spine and then she had bilateral sacroiliac joint steroid injection for this new pain. The patient has not felt any improvement after the sacroiliac injection until about a few days ago. Her pain today is very mild though she states. Patient denies new-onset weakness, bowel/bladder incontinence, or any other signs or symptoms of cauda equina syndrome. There are no signs of acute intoxication, and no indications of medication diversion or overuse. In addition to above, 13-point review of systems is also negative for chest pain, shortness of breath, changes in vision, changes in hearing, new onset weakness, abdominal pain, diarrhea, extreme fatigue, malaise, fever, skin changes, homicidal or suicidal ideation, or bowel or bladder incontinence. 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 2-lumbar degenerative disc disease. 3-bilateral sacroiliitis. 4-diabetes 5-morbid obesity Plan: 1. Explanation: Opioid and psychological risk scores were reviewed. Diagnoses, prognoses, and multiple treatment options including but not limited to physical therapy, interventional therapies, adjuvant medical therapies, narcotic medication therapies, and surgery were discussed with the patient and all questions were answered to the patient's satisfaction. 2. Opioid agreement: Signed with the patient and the patient is warned not to use opioids while driving or before driving and not to combine opioids with benzodiazepines or alcohol. 3. Counseling: The patient was counseled extensively on SMOKING CESSATION, BODY MASS INDEX, EXERCISE. Specifically, the patient was instructed regarding the importance of smoking cessation, obesity, and exercise in the context of both chronic pain and overall health. 4. Procedures: The patient does not show a reliable signs of pain improvement after the diagnostic sacroiliac joint steroid injection she did not feel any improvement immediately after the procedure so I think it is not prudent to proceed with RFA on the sacroiliac joints at this point. She will benefit from RFA on the lumbar medial branches in the future though. 5. Consultations: None 6. Investigations: None 7. Medications: None prescribed 8. Disposition: Return to clinic as needed 9. Maps were reviewed and were appropriate. Objective - Vital Signs Vital signs: Vital Signs Temp 98.3 F 05/30/21 11:09 Pulse 51 L 05/30/21 11:09 Resp 18 05/30/21 11:09 BP 175/78 05/30/21 11:09 Pulse Ox 95 05/30/21 11:09
== END | disposition home or self-care (01) ==
LOC: PNWHC3 10:56
PROVIDERS: ATTEND Anesthesiology
DX: M51.36 Other intervertebral disc degeneration, lumbar region (principal); M47.816 Spondylosis without myelopathy or radiculopathy, lumbar region; M46.96 Unspecified inflammatory spondylopathy, lumbar region; M46.1 Sacroiliitis, not elsewhere classified; E11.9 Type 2 diabetes mellitus without complications; E66.01 Morbid (severe) obesity due to excess calories
CPT/HCPCS: 99211

== ENCOUNTER → 2021-09-21 | Outpatient (CLI) | payer MEDICARE, OTHER ==
[2021-09-21 09:16] VITALS: BP 172/75; PULSE 40; RESP 18
--- NOTE | 2021-09-21 12:31 | P.PN ---
Subjective Progress Note Date: 09/21/21 Naomi is a 70-year-old female presented to clinic for evaluation of low back pain that radiates across her buttocks and down both legs. G 2020 she had bilateral SI joint injections. She reports since those injections that area has been feeling better for her. She still maintained greater than 50% pain relief from the SI joint injections. She described a different pain today. At some low back pain that is equal on the left with a right-sided radiates down to her calves. This type of pain she reports that whenever over 7 years. She describes it as a sharp stabbing pain. It is aggravated with certain positions, excessive standing, and increase activity. It is better with certain positions, sitting, rest, medications and massage. She has physical therapy in the past but is offered her no relief for her low back pain. She does have some 5 mg Pelican left lower lumbar previous prescription and takes it intermittently and it gives her some relief. She also takes naproxen on a daily basis. Reports her pain on average is a 3 out of 4 out of 10 but can increase up to a 10 out of 10 pain. Denies any bowel or bladder dysfunction, saddle anesthesia, or any other red flag symptoms. She had no other questions or concerns at this time. Objective - Exam Physical Examinations : -Constitutiona : Cooperative , not in acute distress . -HEENT : nech : supple , no Lymphadenopathy , normal thyroid size . : eyes : no ptosis , no icterus, no photophobia . - neurologic : Cranial nerve II to XII intact , no focal neurological deffecit . -psychatric : alert , oriented X 3 , appropriate affect , intact judgment and insight . -Lymphatic : no Lymphadenopathy . - musculoskeltal : Lumber spine moter stegnth lower extremities ,thigh and legs 5/5 Right side , 5/5 Left side deep tendon reflexes : normal Knee Jerk , normal ankle Jerk lumber facet Loading Test =positive Right , positive Left Range of motion of the lumbar spine Flexion 30 degrees, extension 10 degrees strait leg raising test = positive at degree Fabere test= positive Right , and positive LT . Sever tenderness over the Sacroiliac joint on the Right , and Left sides Gaenslen test= positive right ,and positive left . Seated flexion test= positive right ,and positive Left . Distraction test= positive bilaterally Sacroiliac compression test= negative Assessment and Plan Assessment: Assessment and plan Assessment: Lumbar spondylosis and facet arthropathy without myelopathy Lumbar radiculopathy Lateral sacroiliac dysfunction Bilateral knee osteoarthritis Obesity Plan: She could benefit from lumbar epidural steroid injection at L4 5 #1 of up to 3 Scheduled follow-up appointment after procedure to evaluate effectiveness Dr. Bellamy was available by phone for consultation during his visit I have spent 24 minutes on patient care today. The time was used to review the medical records including relevant urine studies and Prescription history (MAPs), review of the available imaging, evaluation and examination of the patient, coordination of care with the medical staff and if applicable referring physicians, as well as creation of the medical record. - PQRS measures = - Patient's medications are documented in the chart. -Tobacco use is negative -Patient's has received pneumococcal vaccine. -Advanced care planning discussed, patient not eligible. -Opiate contract at signed. -Pain positive and follow-up visit/procedure is scheduled. -Patient's blood pressure measured 172/75 , and documented in the record ,and patient will follow up with the primary care. -Patient was not identified as an unhealthy alcohol user Time with Patient: Less than 30
== END | disposition home or self-care (01) ==
LOC: PNWHC3 08:31
PROVIDERS: ATTEND Student in an Organized Health Care Education/Training Program
DX: M47.896 Other spondylosis, lumbar region (principal); M54.16 Radiculopathy, lumbar region; M17.0 Bilateral primary osteoarthritis of knee; E66.9 Obesity, unspecified; M53.3 Sacrococcygeal disorders, not elsewhere classified
CPT/HCPCS: 99211

== ENCOUNTER 2021-11-08 06:57 | Day surgery (SDC) | payer MEDICARE, OTHER ==
[2021-11-08 07:30] VITALS: TEMP 97.4
[2021-11-08 07:37] LABS: Glucose,Whole Blood 165 mg/dL (75-99)
[2021-11-08] MEDS ORDERED: LACTATED RINGERS 1,000 ML IV SCH ×2 (07:45)
[2021-11-08] MEDS ORDERED: methylPREDNISolone ACETATE 40 MG/ML 1 ML VIAL ONE (07:47)
[2021-11-08] MEDS ORDERED: IOPAMIDOL M200 10 ML VIAL ONE (07:47)
[2021-11-08] MEDS ORDERED: MIDAZOLAM 2 MG/2 ML VIAL ONE (07:47)
--- NOTE | 2021-11-08 07:56 | P.PCN ---
Date of Procedure: 11/08/21 Description of Procedure: Procedure: 1. L4-L5 Epidural steroid injection under fluoroscopic guidance #2, 2. Lumbar epidurogram PREOPERATIVE DIAGNOSIS: Lumbar degenerative disc disease, and Lumbar radiculopathy lumbar spine stenosis. POSTOPERATIVE DIAGNOSIS: Lumbar degenerative disc disease, and Lumbar radiculopathy, lumbar spine stenosis. SURGEON: Lady Cifuentes ANESTHESIA: Local with 1% lidocaine, and IV sedation: Midazolam 1 mg. EBL: None. Specimen removed: None Fluoroscopic image: saved to electronic medical records PROCEDURE INDICATION: The patient had history of Lumbar degenerative disc disease and Lumbar radiculopathy. Patient had more than 80% pain relief with the previous epidural steroid injection for 3 weeks duration. Failed to conservative therapy. Came here for repeat epidural steroid injection. PROCEDURE DESCRIPTION: The patient was seen and identified in the preoperative area. Risks, benefits, complications, and alternatives were discussed with the patient. The patient agreed to proceed with the procedure and signed the consent. IV was started, and vital signs were stable. Patient was taken to the procedure area, and time out was completed. The patient was placed in the prone position on procedure table and a pillow was placed under the abdomen to reduce lumbar lordosis. The lumbosacral area was prepped and draped in the usual sterile fashion. Critical pause was taken. Vital signs were closely monitored during the procedure. Using anterior-posterior fluoroscopy, the L4-L5 interlaminar space was identified, and skin and deeper tissues were localized with 1% lidocaine. Using anterior-posterior fluoroscopy, lateral fluoroscopy, and [id number] technique, a 20 gauge 3.5 Tuohy epidural needle entered the epidural space. After negative aspiration of CSF and blood with no paresthesias, 2ml of [id number] contrast dye was injected and an excellent epidurogram was seen. Again after negative aspiration of CSF and blood with no paresthesias, 8 mL of block solution was injected into the epidural space. Block solution contained 40 mg of Depo-Medrol, and 7 mL of preservative-free normal saline. Needle was withdrawn intact, skin was cleansed, and bandages were applied. COMPLICATIONS: None. DISPOSITION / PLANS: The patient was placed in a supine position and transferred to the recovery area in a stable condition for observation. Patient was discharged from the recovery room after meeting discharge criteria. Home disc harge instructions given to the patient by the staff. The patient was reexamined prior to discharge. The patient will schedule a follow up in the clinic in 4 weeks.
[2021-11-08] MEDS ORDERED: IV FLUID CONTINUATION 850 ML IV ONE (08:07)
--- NOTE | 2021-11-08 08:08 | FL ---
Fluoroscopy History: LUMBAR EPI INJ Lumbar epidural steroid injection. 2 sec fl. 2 images sent.
[2021-11-08 08:11] VITALS: RESP 20
[2021-11-08 08:25] VITALS: BP 176/61; PULSE 40
== END 2021-11-08 09:00 | disposition home or self-care (01) ==
LOC: ORPAIN 06:57
DX: M48.061 Spinal stenosis, lumbar region without neurogenic claudication (principal); M54.16 Radiculopathy, lumbar region
CPT/HCPCS: 62323

== ENCOUNTER → 2021-12-05 | Outpatient (CLI) | payer MEDICARE, OTHER ==
[2021-12-05 11:22] VITALS: BP 185/91; PULSE 45; RESP 18; TEMP 98.5
--- NOTE | 2021-12-05 11:47 | P.PN ---
Subjective Progress Note Date: 12/05/21 Principal diagnosis: A 71 yr old female with a history of severe and chronic low back pain secondary to lumbar degenerative disc diseases and lumbar spondylosis with facet arthropathy presents today for evaluation s/p THEO on 11/08/2021. She admits to 70-80 % pain relief with the procedure. Pain level is currently a 1/10 in intensity. Pain is dull/ achy in the lower lumbar spine with standing for 20 minutes or more, such as when washing dishes. Pain is alleviated with med ications, injections, topicals, rest and stretching. She does not participate in PT as it has made her pain worse at one point in time. Interventional pain procedures completed include THEO Patient denies any side effects of the medication(s), denies excessive drowsiness or sleepiness, denies suicidal ideation and reports that the current pain medication is helping to control the pain and improve activities of daily living. Patient denies any motor or sensory deficits. Patient denies any fever or night sweats, denies any change in the bowel movements or urination. Physical Examination: -Constitutional: Cooperative. Not in acute distress . -HEENT: Neck is supple. No lymphadenopathy. No thyromegaly. Normal thyroid size. Eyes: No ptosis , no icterus, no photophobia. ENT: No auditory deficits. Normal oropharynx. No Thrush. - Respiratory: Chest clear to auscultations bilaterally. No wheezing. No rhonchi. - Cardiovascular: Regular rate and rhythm. S1 / S2 , no S3 , no S4. - Gastrointestinal: Abdomen soft no tenderness. Bowel sounds positive in all four quadrants. No organomegaly. - Genitourinary: Deferred. - Neurologic: Cranial nerve II to XII intact. No focal neurological deficits. - Psychatric: Alert & oriented x 3. Matching mood & appropriate affect. Judgment and insight intact. - Lymphatic: No Lymphadenopathy. - Musculoskeletal: Cervical spine: Muscle bulk/ tone/ strength in the bilateral upper extremities normal. Facet loading test cervical area positive. Lumbar spine: Motor bulk/ tone/ strength lower extremities , thigh and legs : age appropriate Deep tendon reflexes : Normal Knee Jerk. Normal Ankle Jerk . Lumbar Facet Loading Test positive Straight Leg Raise: positive at 30 degree right side/ left side Jose test: positive right side / left side Range of motion: Flexion of the lumbar spine 60 degrees Range of motion: Extension of the lumbar spine <20 degrees Severe tenderness over the Sacroiliac joint: right side / left side Assessment and plan: Chronic low back pain secondary to lumbar degenerative disc disease , lumbar spondylosis with facet arthropathy without myelopathy May return to the office on an as-needed basis All patient questions answered MAPS reviewed and it was appropriate. I have spent 31 minutes on patient care today. Dr Bellamy was available by phone for the evaluation of this patient. The time was used to review the medical records including relevant urine studies and Prescription history (MAPs), review of the available imaging, evaluation and examination of the patient, coordination of care with the medical staff and if applicable referring physicians, as well as creation of the medical record Objective - Vital Signs Vital signs: Vital Signs Temp 98.5 F 12/05/21 11:20 Pulse 45 L 12/05/21 11:20 Resp 18 12/05/21 11:20 BP 185/91 12/05/21 11:20 Pulse Ox PQRS Measure Charge Sheet Mode of Arrival: Ambulatory PQRS Narrative: Smoking Status Never smoker Blood Pressure 185/91 Pain Intensity [None] 0 Scale Used Numeric (1 - 10) Hx Alcohol Use (MH) No Home Medications: Ambulatory Orders Atorvastatin Calcium [Lipitor] 20 mg PO HS 02/14/17 Glimepiride [Amaryl] 4 mg PO AC-BRKFST 02/14/17 Insulin NPH Human Isophane [NovoLIN N] 25 unit SQ AC-SUPPER 02/14/17 Insulin NPH Human Isophane [NovoLIN N] 30 unit SQ AC-BRKFST 02/14/17 Naproxen 500 mg PO Q12HR 02/14/17 Potassium Chloride [Klor-Con 20] 20 meq PO DAILY 02/14/17 amLODIPine [Norvasc] 10 mg PO HS 02/14/17 atenoloL [Tenormin] 50 mg PO HS 02/14/17 metFORMIN HCL [Glucophage] 1,000 mg PO HS 02/14/17 Hydrocodone/Acetaminophen [[place] 5-325] 1 each PO Q6HR PRN #30 tab 02/23/17 Insulin Glargine [Lantus] 50 unit SQ HS 03/10/21 Levothyroxine Sodium [Synthroid] 75 mcg PO DAILY 03/10/21
== END ==
LOC: PNWHC3 10:37
PROVIDERS: ATTEND Physician Assistant Medical
DX: M51.36 Other intervertebral disc degeneration, lumbar region (principal); M47.816 Spondylosis without myelopathy or radiculopathy, lumbar region; G89.29 Other chronic pain
CPT/HCPCS: 99211

== ENCOUNTER 2022-04-14 06:08 | Day surgery (SDC) | payer MEDICARE, OTHER ==
[2022-04-13 11:28] VITALS: BMI 38.9
[2022-04-14] MEDS ORDERED: LACTATED RINGERS 1,000 ML IV SCH (06:11)
[2022-04-14] MEDS ORDERED: LIDOCAINE 1% (10MG/ML) FOR IV START INTRADERMA PRN (06:11)
[2022-04-14 06:36] VITALS: TEMP 96.5
[2022-04-14 06:45] LABS: Glucose,Whole Blood 100 mg/dL (75-99)
[2022-04-14] MEDS ORDERED: methylPREDNISolone ACETATE 40 MG/ML 1 ML VIAL ONE (06:51)
[2022-04-14] MEDS ORDERED: MIDAZOLAM 2 MG/2 ML VIAL ONE (06:51)
[2022-04-14] MEDS ORDERED: ROPIVACAINE 5MG/ML 20ML VIAL ONE (06:51)
[2022-04-14] MEDS ORDERED: fentaNYL (PF) 50 MCG/ML 2 ML AMP ONE (06:51)
--- NOTE | 2022-04-14 07:22 | P.PCN ---
Date of Procedure: 04/14/22 Procedure(s) Performed: PREOPERATIVE DIAGNOSIS: 1-Lumbar Spondylosis with Facet Arthropathy without myelopathy. 2- Lumber degenerative disc disease POSTOPERATIVE DIAGNOSIS: 1- Lumbar Spondylosis with Facet Arthropathy without myelopathy. 2- Lumber degenerative disc disease. PROCEDURES : Bilateral Radiofrequency thermocoagulation, L3 , L4 , and L5 medial branch, with fluoroscopic guidance (fluoroscopy images available in the radiology department) ( to denervate the facet joint at Bilateral L4-5 ,and L5-S1 levels ). ANESTHESIA: Monitored anesthesia care as per anesthesia department. EBL: Minimal PROCEDURE INDICATION: The patient with low back pain secondary to lumbar facet arthropathy who had more than 50% relief of her pain with previous diagnostic lumbar medial branch block with bupivacaine. PROCEDURE DESCRIPTION / TECHNIQUE: The patient was seen and identified in the preoperative area. Risks, benefits, complications, including but not limited to risk of infection ,bleeding , allergic reactions to the medications and no complete pain releife , and alternatives were discussed with the patient, the patient agreed to proceed with the procedure and signed the consent. IV was started. Vital signs remained stable throughout the procedure. Patient was taken to the OR and time out was completed. The patient was placed in the prone position on the procedure table. The lumber area was prepped and draped in the usual sterile fashion. . Vital signs were closely monitored during the procedure .IV sedation was used during the procedure to decrease patients anxiety. Using AP and then oblique fluoroscopy, the ``eye of the Sean dog michael esponding to the connection between the superior and transverse articular processes of right L3, L4, and L5 were identified, marked, and localized with 1% lidocaine. Subsequently, a 18 [id number] (VENUM ) radiofrequency cannula with a 10-mm active tip was advanced guided by fluoroscopy to each of the``eyes of the Sean dog at right L3, L4, and L5. Each site then underwent sensory testing at 50 Hz and 0 to 1 volt and motor testing at 2.5 Hz and 0 to 3 volt with local stimulation, but no radicular symptoms down the legs. Thereafter each sites underwent radiofrequency thermocoagulation at 80 degrees celsius for 90 seconds after injecting 0.5 ml of PF Ropivacaine 1ml, then after the thermocoagulation done , 1 ml of the block solution containing Depo-Medrol 20 mg and 3 ml of Ropivacaine 0.5% was injected at the right L3 , L4 , and L5 , levels after negative aspiration of CSF and blood and with no paresthesias. Cannulas were retracted while injecting lidocaine 1% until the needle is out. The same procedure was repeated at the level of Left L3, L4, and L5 levels. At the end of the procedure, the skin was cleansed and bandages were applied. COMPLICATIONS: No acute complications. DISPOSITION / PLANS: The patient was placed in a supine position and transferred to the recovery area in a stable condition for observation and was discharged from the recovery room after meeting discharge criteria. Home discharge instructions given to the patient by the staff. The patient was reexamined prior to discharge. The patient will schedule a follow up in the clinic in 2-4 weeks.
[2022-04-14] MEDS ORDERED: IV FLUID CONTINUATION 700 ML IV ONE (07:28)
[2022-04-14 07:32] VITALS: RESP 18
[2022-04-14 07:49] VITALS: BP 173/64; PULSE 37
--- NOTE | 2022-04-14 08:32 | FL ---
EXAMINATION TYPE: FL guided pain mgmt statistic DATE OF EXAM: 04/14/2022 CLINICAL HISTORY: Low back pain. TECHNIQUE: Fluoroscopy. COMPARISON: None. FINDINGS: Fluoroscopic guidance was provided during pain relief procedure performed by Dr. Bellamy . A total of 4.9 seconds of fluoroscopic time was utilized during the procedure and 5 spot images ar e acquired. Images acquired shows needle localization at several levels in the lower lumbar spine. IMPRESSION: As Above.
== END 2022-04-14 08:04 | disposition home or self-care (01) ==
LOC: ORPAIN 06:08
PROVIDERS: ATTEND Specialist
DX: M47.816 Spondylosis without myelopathy or radiculopathy, lumbar region (principal); M51.36 Other intervertebral disc degeneration, lumbar region
CPT/HCPCS: 64635; 64636; J2250; J1030; J3010; J2795

== ENCOUNTER 2022-09-07 10:42 | Inpatient (IN) | payer MEDICARE, OTHER ==
[2022-09-07] MEDS ORDERED: FUROSEMIDE 10 MG/ML 4 ML VIAL IV STA (11:29)
[2022-09-07] MEDS ORDERED: ASPIRIN 81 MG PO STA (11:30)
[2022-09-07 11:53] LABS: Basophils % (A) 0 %; Eosinophils % (A) 1 %; HCT 35.8 % (34.0-46.0); HGB 12.5 gm/dL (11.4-16.0); Lymphocytes # (A) 1.1 k/uL (1.0-4.8); Lymphocytes % (A) 18 %; MCH 32.2 pg (25.0-35.0); Mean Platelet Volume 8.6; Monocytes # (A) 0.5 k/uL (0-1.0); Monocytes % (A) 8 %; Neutrophils # (A) 4.3 k/uL (1.3-7.7); Neutrophils % (A) 71 %; Platelet Count 212 k/uL (150-450); Poikilocytosis Slight; RBC 3.89 m/uL (3.80-5.40); RDW 13.6 % (11.5-15.5)
[2022-09-07] MEDS ORDERED: amLODIPine 10 MG TAB PO STA (12:00)
[2022-09-07] MEDS ORDERED: LOSARTAN 50 MG TAB PO STA (12:00)
[2022-09-07] MEDS ORDERED: atenoloL 50 MG TAB PO STA (12:00)
[2022-09-07 12:01] LABS: Partial Thromboplastin Time 22.8 sec (22.0-30.0); Prothrombin Time 10.7 sec (9.0-12.0)
[2022-09-07 12:02] LABS: Albumin 3.5 g/dL (3.5-5.0); Calcium 8.6 mg/dL (8.4-10.2); Magnesium 1.3 mg/dL (1.6-2.3); Total Protein 5.8 g/dL (6.3-8.2)
--- NOTE | 2022-09-07 12:08 | XR ---
EXAMINATION TYPE: XR chest 2V DATE OF EXAM: 09/07/2022 COMPARISON: CT 02/24/2019 HISTORY: 72-year-old female shortness of breath, difficulty breathing TECHNIQUE: AP and lateral views FINDINGS: Heart mildly enlarged. Diffuse interstitial and vascular prominence. Small left pleural effusion on t he lateral view. Otherwise, the frontal view, the left base is underpenetrated and not well assessed. No fern airspace disease. IMPRESSION: Mild cardiomegaly, interstitial changes, and a small left pleural effusion. Correlate for CHF with pu lmonary vascular congestion.
[2022-09-07] MEDS ORDERED: POTASSIUM CHLORIDE ER 20 MEQ TAB.ER PO STA (12:42)
[2022-09-07] MEDS ORDERED: NALOXONE 0.4 MG/ML 1 ML VIAL IV PRN (13:47)
[2022-09-07] MEDS: MAGNESIUM SULFATE-D5W PMX 1 GM in DEXTROSE/WATER 1 100ML.BAG IVPB SCH ×2 (14:41→15:55)
--- NOTE | 2022-09-07 14:53 | ED ---
General Adult HPI - General Chief complaint: Shortness of Breath Stated complaint: CHF Time Seen by Provider: 09/07/22 11:20 Source: patient, RN notes reviewed, old records reviewed Mode of arrival: ambulatory Limitations: no limitations - History of Present Illness Initial comments: Patient is a 72-year-old female who presents emergency Department complaining of exertional shortness of breath, lower extremity edema. Believe she is having a congestive heart failure exacerbation was sent in by her PCP. States she is compliant with medications. Has been endorse worsening exertional shortness of breath, as well as orthopnea. Denies PND. Endorses lower extremity edema. Is on Lasix at home is compliant. Did not take any medications this morning. Denies chest pain, abdominal pain, nausea, vomiting. Denies any fevers, chills. Does endorse a nonproductive cough. Presents for further evaluation this time. No history of blood clots. - Related Data Home Medications Medication Instructions Recorded Confirmed Atorvastatin Calcium [Lipitor] 20 mg PO HS 02/14/17 09/07/22 Glimepiride [Amaryl] 4 mg PO AC-BRKFST 02/14/17 09/07/22 Insulin NPH Human Isophane 25 unit SQ W/SUPPER 02/14/17 09/07/22 [NovoLIN N] Naproxen 500 mg PO Q12HR PRN 02/14/17 09/07/22 Potassium Chloride [Klor-Con 20] 40 meq PO DAILY 02/14/17 09/07/22 amLODIPine [Norvasc] 10 mg PO DAILY 02/14/17 09/07/22 atenoloL [Tenormin] 50 mg PO DAILY 02/14/17 09/07/22 Insulin Glargine [Lantus] 25 unit SQ W/SUPPER 03/10/21 09/07/22 Levothyroxine Sodium [Synthroid] 75 mcg PO DAILY 03/10/21 09/07/22 Cholecalciferol [Vitamin D3 (25 25 mcg PO DAILY 09/07/22 09/07/22 Mcg = 1000 Iu)] Citalopram Hydrobromide [CeleXA] 20 mg PO DAILY 09/07/22 09/07/22 Furosemide [Lasix] 40 mg PO DAILY 09/07/22 09/07/22 Latanoprost [Latanoprost 0.005%] 1 drop BOTH EYES HS 09/07/22 09/07/22 Losartan Potassium 100 mg PO DAILY 09/07/22 09/07/22 Allergies Allergy/AdvReac Type Severity Reaction Status Date / Time No Known Allergies Allergy Verified 09/07/22 12:15 Review of Systems ROS Statement: Those systems with pertinent positive or pertinent negative responses have been documented in the HPI. Review of Systems: CONST: Denies fever EYES: Denies blurry vision ENT: Denies nasal congestion C/V: Denies Chest pain RESP: Endorses shortness of breath GI: Denies abdominal pain : Denies dysuria SKIN: Denies rash. MSK: Denies joint pain. NEURO: Denies headache ROS Other: All systems not noted in ROS Statement are negative. Past Medical History Past Medical History: Heart Failure, Diabetes Mellitus, Hypertension, Musculoskeletal Disorder, Osteoarthritis (OA), Thyroid Disorder Additional Past Medical History / Comment(s): "Resting heart rate has been in 40's @times when comes in for procedures." History of Any Multi-Drug Resistant Organisms: None Reported Past Surgical History: Section, Cholecystectomy, Hysterectomy, Tonsillectomy Additional Past Surgical History / Comment(s): COLONOSCOPY, pain procedures, CYST REMOVED FROM NECK AREA. Past Anesthesia/Blood Transfusion Reactions: No Reported Reaction Past Psychological History: No Psychological Hx Reported Smoking Status: Never smoker Past Alcohol Use History: Rare Past Drug Use History: None Reported - Past Family History Mother Family Medical History: Cancer, Hypertension Father Family Medical History: Congestive Heart Failure (CHF) General Exam - General Exam Comments Initial Comments: General: Appears in no acute distress. HEAD: Normal with no signs of head trauma. EYES: PERRLA, EOMI, conjunctiva normal, no discharge. ENT: Hearing grossly intact, normal oropharynx. RESPIRATORY: Clear breath sounds bilaterally. No wheezes, rales, or rhonchi. Mildly hypoxic on room air down to 90%. Responsive to 2 L nasal cannula. No increased work of breathing. C/V: Regular rate and rhythm. S1 and S2 auscultated, I lateral lower extremity symmetrical pitting edema up to the knee., peripheral pulses 2+ and intact throughout ABD: Abd is soft, nontender, nondistended EXT: Normal range of motion, no obvious deformity SKIN: No rashes or lesions observed on exposed skin. NEURO: Alert and oriented 4. Limitations: no limitations Course Vital Signs 09/07/22 09/07/22 09/07/22 10:50 10:54 11:30 Temperature 97.9 F Pulse Rate 50 L Respiratory 18 22 Rate Blood Pressure 200/85 O2 Sat by Pulse 90 L 86 L Oximetry 09/07/22 09/07/22 09/07/22 11:40 11:41 12:00 Temperature Pulse Rate 50 L 48 L Respiratory 18 20 Rate Blood Pressure 191/88 O2 Sat by Pulse 93 L 93 L 95 Oximetry 09/07/22 13:00 Temperature Pulse Rate 46 L Respiratory 20 Rate Blood Pressure 197/95 O2 Sat by Pulse 95 Oximetry Medical Decision Making - Medical Decision Making Based on the patient's presentation and physical exam, I'm concerned for what appears to be a CHF exacerbation for the patient. We'll obtain cardio pulmonary laboratory studies for her at this time. Patient did not take any of her blood pressure medications this morning and is mildly hypertensive. We will provide her with her antihypertensives. She'll be given a 40 mg dose of IV Lasix. She was placed on 2 L nasal cannula with improvement in oxygenation. Remainder the vital signs are within acceptable limits. She does have a history of chronic bradycardia. She was in agreement this plan. She did get an aspirin in addition to the Lasix. EKG shows no signs of acute ischemia. Chest x-ray is concerning for CHF exacerbation. Laboratory studies are remarkable for a hypokalemia at 3.0 which was replenished, hyperglycemia of 350. Patient has hypomagnesemia which was replenished. Patient has an elevated BNP of 3490, as well as troponin of 0.074. Troponin elevation is likely secondary to CHF exacerbation. We will trend. Covid employer negative. I spoke with the patient and updated her regarding her labs and imaging. We d iscussed results. I updated her that she requires admission the hospital for CHF exacerbation. She was in agreement this plan. We'll continue IV Lasix dosing, echo was ordered. Cardiology is consulted. I spoke with the admitting team under Dr. Benjamin who accepted the patient. Patient was admitted in stable condition. We will trend the troponin. She is on subcutaneous heparin. - Lab Data Result diagrams: 09/07/22 11:33 09/07/22 11:33 Lab Results 09/07/22 09/07/22 09/07/22 Range/Units 11:33 11:33 11:33 WBC 6.0 (3.8-10.6) k/uL RBC 3.89 (3.80-5.40) m/uL Hgb 12.5 (11.4-16.0) gm/dL Hct 35.8 (34.0-46.0) % MCV 92.0 (80.0-100.0) fL MCH 32.2 (25.0-35.0) pg MCHC 35.0 (31.0-37.0) g/dL RDW 13.6 (11.5-15.5) % Plt Count 212 (150-450) k/uL MPV 8.6 Neutrophils % 71 % Lymphocytes % 18 % Monocytes % 8 % Eosinophils % 1 % Basophils % 0 % Neutrophils # 4.3 (1.3-7.7) k/uL Lymphocytes # 1.1 (1.0-4.8) k/uL Monocytes # 0.5 (0-1.0) k/uL Eosinophils # 0.0 (0-0.7) k/uL Basophils # 0.0 (0-0.2) k/uL Poikilocytosis Slight PT 10.7 (9.0-12.0) sec INR 1.0 (<1.2) APTT 22.8 (22.0-30.0) sec Sodium 137 (137-145) mmol/L Potassium 3.0 L (3.5-5.1) mmol/L Chloride 103 (98-107) mmol/L Carbon Dioxide 23 (22-30) mmol/L Anion Gap 11 mmol/L BUN 23 H (7-17) mg/dL Creatinine 0.91 (0.52-1.04) mg/dL Est GFR (CKD-EPI)AfAm 72 (>60 ml/min/1.73 sqM) Est GFR (CKD-EPI)NonAf 62 (>60 ml/min/1.73 sqM) Glucose 350 H (74-99) mg/dL Calcium 8.6 (8.4-10.2) mg/dL Magnesium 1.3 L (1.6-2.3) mg/dL Total Bilirubin 1.0 (0.2-1.3) mg/dL AST 24 (14-36) U/L ALT 21 (4-34) U/L Alkaline Phosphatase 134 H (38-126) U/L Troponin I (0.000-0.034) ng/mL NT-Pro-B Natriuret Pep pg/mL Total Protein 5.8 L (6.3-8.2) g/dL Albumin 3.5 (3.5-5.0) g/dL Coronavirus (PCR) (Not Detectd) Influenza Type A RNA (Not Detectd) Influenza Type B (PCR) (Not Detectd) 09/07/22 09/07/22 09/07/22 Range/Units 11:33 11:33 11:33 WBC (3.8-10.6) k/uL RBC (3.80-5.40) m/uL Hgb (11.4-16.0) gm/dL Hct (34.0-46.0) % MCV (80.0-100.0) fL MCH (25.0-35.0) pg MCHC (31.0-37.0) g/dL RDW (11.5-15.5) % Plt Count (150-450) k/uL MPV Neutrophils % % Lymphocytes % % Monocytes % % Eosinophils % % Basophils % % Neutrophils # (1.3-7.7) k/uL Lymphocytes # (1.0-4.8) k/uL Monocytes # (0-1.0) k/uL Eosinophils # (0-0.7) k/uL Basophils # (0-0.2) k/uL Poikilocytosis PT (9.0-12.0) sec INR (<1.2) APTT (22.0-30.0) sec Sodium (137-145) mmol/L Potassium (3.5-5.1) mmol/L Chloride (98-107) mmol/L Carbon Dioxide (22-30) mmol/L Anion Gap mmol/L BUN (7-17) mg/dL Creatinine (0.52-1.04) mg/dL Est GFR (CKD-EPI)AfAm (>60 ml/min/1.73 sqM) Est GFR (CKD-EPI)NonAf (>60 ml/min/1.73 sqM) Glucose (74-99) mg/dL Calcium (8.4-10.2) mg/dL Magnesium (1.6-2.3) mg/dL Total Bilirubin (0.2-1.3) mg/dL AST (14-36) U/L ALT (4-34) U/L Alkaline Phosphatase (38-126) U/L Troponin I 0.074 H* (0.000-0.034) ng/mL NT-Pro-B Natriuret Pep 3490 pg/mL Total Protein (6.3-8.2) g/dL Albumin (3.5-5.0) g/dL Coronavirus (PCR) (Not Detectd) Influenza Type A RNA Not Detected (Not Detectd) Influenza Type B (PCR) Not Detected (Not Detectd) 09/07/22 Range/Units 11:33 WBC (3.8-10.6) k/uL RBC (3.80-5.40) m/uL Hgb (11.4-16.0) gm/dL Hct (34.0-46.0) % MCV (80.0-100.0) fL MCH (25.0-35.0) pg MCHC (31.0-37.0) g/dL RDW (11.5-15.5) % Plt Count (150-450) k/uL MPV Neutrophils % % Lymphocytes % % Monocytes % % Eosinophils % % Basophils % % Neutrophils # (1.3-7.7) k/uL Lymphocytes # (1.0-4.8) k/uL Monocytes # (0-1.0) k/uL Eosinophils # (0-0.7) k/uL Basophils # (0-0.2) k/uL Poikilocytosis PT (9.0-12.0) sec INR (<1.2) APTT (22.0-30.0) sec Sodium (137-145) mmol/L Potassium (3.5-5.1) mmol/L Chloride (98-107) mmol/L Carbon Dioxide (22-30) mmol/L Anion Gap mmol/L BUN (7-17) mg/dL Creatinine (0.52-1.04) mg/dL Est GFR (CKD-EPI)AfAm (>60 ml/min/1.73 sqM) Est GFR (CKD-EPI)NonAf (>60 ml/min/1.73 sqM) Glucose (74-99) mg/dL Calcium (8.4-10.2) mg/dL Magnesium (1.6-2.3) mg/dL Total Bilirubin (0.2-1.3) mg/dL AST (14-36) U/L ALT (4-34) U/L Alkaline Phosphatase (38-126) U/L Troponin I (0.000-0.034) ng/mL NT-Pro-B Natriuret Pep pg/mL Total Protein (6.3-8.2) g/dL Albumin (3.5-5.0) g/dL Coronavirus (PCR) Not Detected (Not Detectd) Influenza Type A RNA (Not Detectd) Influenza Type B (PCR) (Not Detectd) - EKG Data -: EKG Interpreted by Me EKG Comments: 12-lead Electrocardiogram Interpretation Note EKG was reviewed and interpreted by myself. 12-lead ECG performed at 1109 is interpreted by me as revealing sinus bradycardia with first-degree AV block at a rate of 50 beats per minute. Left axis deviation. FL intervals 212 ms, QRS duration is 98 ms, QTc is 334 ms.. There were no ST or T wave abnormalities to suggest myocardial ischemia or injury. R wave progression across the precordium was satisfactory. By my interpretation this EKG is non-diagnostic for acute isc hemia.Compared to prior EKGs, no significant change. Disposition Clinical Impression: Congestive heart failure, Hypomagnesemia, Hypokalemia, Elevated troponin Disposition: ADMITTED IP TO THIS HOSP Condition: Stable Time of Disposition: 13:40
[2022-09-07] MEDS ORDERED: DEXTROSE 50% SYRINGE 50 ML IVP PRN ×2 (15:48)
--- NOTE | 2022-09-07 15:55 | P.HPIM ---
History of Present Illness H&P Date: 09/07/22 Chief Complaint: SOB Patient is a 72-year-old female with past medical history of diabetes, hypertension, dyslipidemia presenting with shortness of breath. She claims that she has been having dyspnea with exertion over the last 2 years. It worsened over the last 1 month, and she has hardly been able to walk 10 feet. She is also noticing orthopnea, PND, increased lower extremity edema. She saw her primary care doctor today, was asked to be evaluated in the emergency. Currently she denies any chest pain, shortness of breath at rest but continues to have orthopnea and dyspnea on exertion. She denies any abdominal pain, palpitations, nausea, vomiting, diarrhea, constipation, or urinary complaints. In the ED, patient was hypertensive to 200/85, bradycardic, 86% on room air, improved to 95% on 2 L. Chest x-ray showed small left pleural effusion and pulmonary vascular congestion. Laboratory data showed potassium of 3, blood sugar of 350, magnesium 1.3, troponin 0.074, proBNP 3490. Covid19 and flu panel was negative. She was given IV Lasix and magnesium in the ED. Patient seen and examined at bedside. Pertinent positives and negatives as discussed in HPI, a complete review of systems was performed and all other systems are negative. Vital signs reviewed General: nontoxic, no distress, appears at stated age Derm: warm, dry Head: atraumatic, normocephalic, symmetric Eyes: EOMI, no lid lag, anicteric sclera, pupils equal round reactive to light ENT: Nose and ears atraumatic, no thrush, no pharyngeal erythema Neck: No thyromegaly, no cervical lymphadenopathy, trachea midline, supple Mouth: no lip lesion, mucus membranes moist Cardiovascular: S1S2 reg, bradycardic, no murmur, 2+ pitting edema up to knees bilaterally, capillary refill less than 2 seconds Lungs: Bilateral rales at the bases, no accessory muscle use, on 2 L nasal cannula Abdominal: soft, nontender to palpation, no guarding, no appreciable organomegaly, normal bowel sounds Ext: no gross muscle atrophy, muscle strength muscle strength 5 out of 5 in all 4 extremities, no contractures Neuro: CN II-XII grossly intact, light touch intact all 4 extremities, finger to nose within normal limits, Psych: Alert, oriented, appropriate affect Assessment/Plan: Acute hypoxic respiratory failure New onset congestive heart failure exacerbation -Unsure if systolic or diastolic -Echo pending -Cardiology consul -Strict I's and O's -IV Lasix Troponin elevation -Likely demand ischemia -Telemetry -Continue to trend troponin Hypertensive urgency -Restarted home medication including losartan and amlodipine Sinus bradycardia -We will hold atenolol for now Insulin-dependent diabetes -Continue home insulin -holding glempiride -Sliding scale -A1c pending Hypothyroidism -Continue Synthroid -TSH pending Hypomagnesemia Hypokalemia -Replete The patient is admitted with an anticipated greater than 2 midnight stay for evaluation of [hypoxic respiratory failure]. Surrogate decision-maker: Son CODE STATUS: DNR/DNI DVT prophylaxis: Subcu heparin Anticipated discharge date: 09/[address]: Home A total of 48 minutes was spent on the care of this complex patient more than 50% of the time was spent in counseling and care coordination. Past Medical History Past Medical History: Heart Failure, Diabetes Mellitus, Hypertension, Musculoskeletal Disorder, Osteoarthritis (OA), Thyroid Disorder Additional Past Medical History / Comment(s): "Resting heart rate has been in 40's @times when comes in for procedures." History of Any Multi-Drug Resistant Organisms: None Reported Past Surgical History: Section, Cholecystectomy, Hysterectomy, Tonsillectomy Additional Past Surgical History / Comment(s): COLONOSCOPY, pain procedures, CYST REMOVED FROM NECK AREA. Past Anesthesia/Blood Transfusion Reactions: No Reported Reaction Past Psychological History: No Psychological Hx Reported Smoking Status: Never smoker Past Alcohol Use History: Rare Past Drug Use History: None Reported - Past Family History Mother Family Medical History: Cancer, Hypertension Father Family Medical History: Congestive Heart Failure (CHF) Medications and Allergies Home Medications Medication Instructions Recorded Confirmed Type Atorvastatin Calcium [Lipitor] 20 mg PO HS 02/14/17 09/07/22 History Glimepiride [Amaryl] 4 mg PO AC-BRKFST 02/14/17 09/07/22 History Insulin NPH Human Isophane 25 unit SQ W/SUPPER 02/14/17 09/07/22 History [NovoLIN N] Naproxen 500 mg PO Q12HR PRN 02/14/17 09/07/22 History Potassium Chloride [Klor-Con 20] 40 meq PO DAILY 02/14/17 09/07/22 History amLODIPine [Norvasc] 10 mg PO DAILY 02/14/17 09/07/22 History atenoloL [Tenormin] 50 mg PO DAILY 02/14/17 09/07/22 History Insulin Glargine [Lantus] 25 unit SQ W/SUPPER 03/10/21 09/07/22 History Levothyroxine Sodium [Synthroid] 75 mcg PO DAILY 03/10/21 09/07/22 History Cholecalciferol [Vitamin D3 (25 25 mcg PO DAILY 09/07/22 09/07/22 History Mcg = 1000 Iu)] Citalopram Hydrobromide [CeleXA] 20 mg PO DAILY 09/07/22 09/07/22 History Furosemide [Lasix] 40 mg PO DAILY 09/07/22 09/07/22 History Latanoprost [Latanoprost 0.005%] 1 drop BOTH EYES HS 09/07/22 09/07/22 History Losartan Potassium 100 mg PO DAILY 09/07/22 09/07/22 History Allergies Allergy/AdvReac Type Severity Reaction Status Date / Time No Known Allergies Allergy Verified 09/07/22 12:15 Physical Exam Vitals: Vital Signs Temp Pulse Resp BP Pulse Ox 09/07/22 13:00 46 L 20 197/95 95 09/07/22 12:00 20 191/88 95 09/07/22 11:41 48 L 18 93 L 09/07/22 11:40 50 L 93 L 09/07/22 11:30 86 L 09/07/22 10:54 22 09/07/22 10:50 97.9 F 50 L 18 200/85 90 L Intake and Output 09/07/22 09/07/22 09/07/22 06:59 14:59 22:59 Other: Weight 90.718 kg Results CBC & Chem 7: 09/07/22 11:33 09/07/22 11:33 Labs: Abnormal Lab Results - Last 24 Hours (Table) 09/07/22 09/07/22 09/07/22 Range/Units 11:33 11:33 14:58 Potassium 3.0 L (3.5-5.1) mmol/L BUN 23 H (7-17) mg/dL Glucose 350 H (74-99) mg/dL Magnesium 1.3 L (1.6-2.3) mg/dL Alkaline Phosphatase 134 H (38-126) U/L Troponin I 0.074 H* 0.070 H* (0.000-0.034) ng/mL Total Protein 5.8 L (6.3-8.2) g/dL
[2022-09-07] MEDS: HEPARIN SODIUM,PORCINE/PF 5,000 UNIT/0.5 ML SYRINGE SQ SCH (16:44)
[2022-09-07 16:50] LABS: Glucose,Whole Blood 358 mg/dL (70-110)
[2022-09-07] MEDS: INSULIN DETEMIR (LEVEMIR) 100 UNIT/ML SYR SQ SCH (17:51)
[2022-09-07] MEDS: INSULIN ASPART (NovoLOG) 100 UNIT/ML VIAL SQ SCH ×2 (17:51→19:57)
[2022-09-07] MEDS: INSULIN NPH 100 UNIT/ML 10 ML VIAL SQ SCH (19:31)
[2022-09-07] MEDS: ATORVASTATIN 20 MG TAB PO SCH (19:57)
[2022-09-07 19:59] LABS: Glucose,Whole Blood 318 mg/dL (70-110)
[2022-09-07] MEDS: FUROSEMIDE 10 MG/ML 4 ML VIAL IV SCH (20:13)
[2022-09-07] MEDS: LATANOPROST 0.005% OPHTH DROPS 2.5 ML BTL BOTH EYES SCH (20:13)
[2022-09-08] MEDS: HEPARIN SODIUM,PORCINE/PF 5,000 UNIT/0.5 ML SYRINGE SQ SCH ×4 (00:10→17:15)
[2022-09-08 00:16] LABS: Glucose,Whole Blood 62 mg/dL (70-110)
[2022-09-08 00:34] LABS: Glucose,Whole Blood 75 mg/dL (70-110)
[2022-09-08 06:06] LABS: Glucose,Whole Blood 103 mg/dL (70-110)
[2022-09-08] MEDS: INSULIN ASPART (NovoLOG) 100 UNIT/ML VIAL SQ SCH ×4 (06:15→20:19)
--- NOTE | 2022-09-08 07:23 | P.CRDCN ---
History of Present Illness Consult date: 09/08/22 Chief complaint: Shortness of breath and bilateral lower extremities edema History of present illness: This is a 72-year-old female patient with a past medical history significant for diabetes and hypertension and dyslipidemia and overweight was referred by her primary care physician to the hospital for further evaluation. The patient has been short of breath almost a year according to her. But for the last few weeks the shortness of breath has progressed significantly and it was associated with severe bilateral lower extremities edema up to the groin level. She never been diagnosed with congestive heart failure before. No history of coronary artery disease or congestive heart failure or any cardiac arrhythmia. Never seen a group worker before. The symptoms of shortness of breath and lower extremities edema was not associated with any chest pain or chest discomfort and no dizziness or lightheadedness or any feeling of heart racing or fluttering or presyncope or syncope. She was seen yesterday at her primary care physician and she was referred to come to the hospital for further investigation. In the hospital she underwent a workup including EKG showing sinus rhythm with sinus bradycardia and nonspecific changes. Chest x-ray showed findings consistent with congestive heart failure. Troponin came in to be slightly elevated but seems to be flat. The troponin doesn't seems to be consistent with acute coronary syndrome and likely related to the heart failure as well as elevated blood pressure. Beside that she was found to have elevated pressure seems to be consistent with hypertension emergency. She stated that she does have history of hypertension and she has been taking her medications regularly but apparently reviewing her home medication she has been consuming a lot of nonsteroid anti- inflammatory medications regularly which could be contributing to be elevated blood pressure. An echo is in process to be done. On examination she does have severe bilateral lower 70s edema along with chronic skin changes and she has also diminished breathing sounds bilaterally. She does have evidence of biventricular failure. Past Medical History Past Medical History: Heart Failure, Diabetes Mellitus, Hypertension, Musculoskeletal Disorder, Osteoarthritis (OA), Thyroid Disorder Additional Past Medical History / Comment(s): "Resting heart rate has been in 40's @times when comes in for procedures." History of Any Multi-Drug Resistant Organisms: None Reported Past Surgical History: Section, Cholecystectomy, Hysterectomy, Tonsillectomy Additional Past Surgical History / Comment(s): COLONOSCOPY, pain procedures, CYST REMOVED FROM NECK AREA. Past Anesthesia/Blood Transfusion Reactions: No Reported Reaction Past Psychological History: No Psychological Hx Reported Smoking Status: Never smoker Past Alcohol Use History: Rare Past Drug Use History: None Reported - Past Family History Mother Family Medical History: Cancer, Hypertension Father Family Medical History: Congestive Heart Failure (CHF) Medications and Allergies Home Medications Medication Instructions Recorded Confirmed Type Atorvastatin Calcium [Lipitor] 20 mg PO HS 02/14/17 09/07/22 History Glimepiride [Amaryl] 4 mg PO AC-BRKFST 02/14/17 09/07/22 History Insulin NPH Human Isophane 25 unit SQ W/SUPPER 02/14/17 09/07/22 History [NovoLIN N] Naproxen 500 mg PO Q12HR PRN 02/14/17 09/07/22 History Potassium Chloride [Klor-Con 20] 40 meq PO DAILY 02/14/17 09/07/22 History amLODIPine [Norvasc] 10 mg PO DAILY 02/14/17 09/07/22 History atenoloL [Tenormin] 50 mg PO DAILY 02/14/17 09/07/22 History Insulin Glargine [Lantus] 25 unit SQ W/SUPPER 03/10/21 09/07/22 History Levothyroxine Sodium [Synthroid] 75 mcg PO DAILY 03/10/21 09/07/22 History Cholecalciferol [Vitamin D3 (25 25 mcg PO DAILY 09/07/22 09/07/22 History Mcg = 1000 Iu)] Citalopram Hydrobromide [CeleXA] 20 mg PO DAILY 09/07/22 09/07/22 History Furosemide [Lasix] 40 mg PO DAILY 09/07/22 09/07/22 History Latanoprost [Latanoprost 0.005%] 1 drop BOTH EYES HS 09/07/22 09/07/22 History Losartan Potassium 100 mg PO DAILY 09/07/22 09/07/22 History Allergies Allergy/AdvReac Type Severity Reaction Status Date / Time No Known Allergies Allergy Verified 09/07/22 12:15 Physical Exam Vitals: Vital Signs Temp Pulse Pulse Resp BP BP Pulse Ox 09/08/22 03:09 98.2 F 44 L 20 168/60 93 L 09/08/22 00:00 98.4 F 50 L 18 150/78 95 09/07/22 22:05 148/62 10/27/22 19:45 97.6 F 48 L 20 199/62 92 L 09/07/22 18:30 98.0 F 48 L 18 190/72 94 L 09/07/22 17:53 77 22 185/77 96 09/07/22 13:00 46 L 20 197/95 95 09/07/22 12:00 20 191/88 95 09/07/22 11:41 48 L 18 93 L 09/07/22 11:40 50 L 93 L 09/07/22 11:30 86 L 09/07/22 10:54 22 09/07/22 10:50 97.9 F 50 L 18 200/85 90 L Intake and Output 09/07/22 09/08/22 09/08/22 22:59 06:59 14:59 Output Total 300 250 Balance -300 -250 Output: Urine 300 250 Other: Weight 90.718 kg 91.3 kg - Constitutional General appearance: no acute distress - Respiratory Respiratory: bilateral: diminished - Cardiovascular Rhythm: regular Heart sounds: normal: S1, S2 Results 09/07/22 11:33 09/07/22 11:33 Cardiac Enzymes 09/07/22 09/07/22 09/07/22 Range/Units 11:33 11:33 14:58 AST 24 (14-36) U/L Troponin I 0.074 H* 0.070 H* (0.000-0.034) ng/mL 09/07/22 Range/Units 18:06 AST (14-36) U/L Troponin I 0.070 H* (0.000-0.034) ng/mL Coagulation 09/07/22 Range/Units 11:33 PT 10.7 (9.0-12.0) sec APTT 22.8 (22.0-30.0) sec CBC 09/07/22 Range/Units 11:33 WBC 6.0 (3.8-10.6) k/uL RBC 3.89 (3.80-5.40) m/uL Hgb 12.5 (11.4-16.0) gm/dL Hct 35.8 (34.0-46.0) % Plt Count 212 (150-450) k/uL Comprehensive Metabolic Panel 09/07/22 Range/Units 11:33 Sodium 137 (137-145) mmol/L Potassium 3.0 L (3.5-5.1) mmol/L Chloride 103 (98-107) mmol/L Carbon Dioxide 23 (22-30) mmol/L BUN 23 H (7-17) mg/dL Creatinine 0.91 (0.52-1.04) mg/dL Glucose 350 H (74-99) mg/dL Calcium 8.6 (8.4-10.2) mg/dL AST 24 (14-36) U/L ALT 21 (4-34) U/L Alkaline Phosphatase 134 H (38-126) U/L Total Protein 5.8 L (6.3-8.2) g/dL Albumin 3.5 (3.5-5.0) g/dL Current Medications Generic Name Dose Route Start Last Admin Trade Name Freq PRN Reason Stop Dose Admin Amlodipine Besylate 10 mg 09/08/22 09:00 Amlodipine 10 Mg Tab PO DAILY [facility] Atorvastatin Calcium 20 mg 09/07/22 21:00 09/07/22 19:57 Atorvastatin 20 Mg Tab PO 20 mg HS MJ Administration Citalopram Hydrobromide 20 mg 09/08/22 09:00 Citalopram Hydrobromide 20 Mg Tab PO DAILY MJ Dextrose/Water 25 ml 09/07/22 15:48 Dextrose 50% Syringe 50 Ml IVP PER PROTOCOL PRN Hypoglycemia Protocol Dextrose/Water 50 ml 09/07/22 15:48 Dextrose 50% Syringe 50 Ml IVP PER PROTOCOL PRN Hypoglycemia Protocol Furosemide 40 mg 09/07/22 21:00 09/07/22 20:13 Furosemide 10 Mg/Ml 4 Ml Vial IV 40 mg Q12HR MJ Administration Heparin Sodium (Porcine) 5,000 unit 09/07/22 16:00 09/08/22 00:10 Heparin Sodium,Porcine/Pf 5,000 Unit/0.5 Ml Syringe SQ 5,000 unit Q8HR MJ Administration Insulin Aspart 0 unit 09/07/22 17:30 09/08/22 06:15 Insulin Aspart (Novolog) 100 Unit/Ml Vial SQ Not Given ACHS [facility] Protocol Insulin Detemir 25 unit 09/07/22 17:30 09/07/22 17:51 Insulin Detemir (Levemir) 100 Unit/Ml Syr SQ 25 unit W/SUPPER [facility] Administration Insulin Human NPH 25 unit 09/07/22 17:30 09/07/22 19:31 Insulin Nph 100 Unit/Ml 10 Ml Vial SQ Not Given W/SUPPER MJ Latanoprost 1 drops 09/07/22 21:00 09/07/22 20:13 Latanoprost 0.005% Ophth Drops 2.5 Ml Btl BOTH EYES 1 drops HS MJ Administration Levothyroxine Sodium 75 mcg 09/08/22 09:00 Levothyroxine 75 Mcg Tab PO DAILY MJ Losartan Potassium 100 mg 09/08/22 09:00 Losartan 50 Mg Tab PO DAILY MJ Naloxone HCl 0.2 mg 09/07/22 13:47 Naloxone 0.4 Mg/Ml 1 Ml Vial IV Q2M PRN Opioid Reversal Spironolactone 25 mg 09/08/22 09:00 Spironolactone 25 Mg Tab PO DAILY MJ Intake and Output 09/07/22 09/08/22 09/08/22 22:59 06:59 14:59 Output Total 300 250 Balance -300 -250 Output: Urine 300 250 Other: Weight 90.718 kg 91.3 kg 09/07/22 11:33 09/07/22 11:33 Assessment and Plan Assessment: Assessment #1 heart failure exacerbation of unknown etiology at this point with evidence of biventricular failure #2 hypertension emergency complicated by heart failure #3 overweight #4 diabetes mellitus type 2 #5 evidence of myocardial injury was no evidence of ischemia clinically or by EKG Plan #1 obtain an echo to assess the etiology of the heart failure and assess the RV and LV function #2 continue the current dose of Lasix IV #3 continue current medical regimen for the hypertension #4 add Aldactone to the current medical regimen. Her creatinine is normal and her potassium is low #5 continue adjusting the blood pressure medication to get the pressure under control #6 follow-up with the patient
[2022-09-08] MEDS ORDERED: GLIMEPIRIDE 4 MG TAB PO SCH (07:30)
[2022-09-08] MEDS: FUROSEMIDE 10 MG/ML 4 ML VIAL IV SCH ×2 (08:46→20:20)
[2022-09-08] MEDS: SPIRONOLACTONE 25 MG TAB PO SCH (08:47)
[2022-09-08] MEDS: LEVOTHYROXINE 75 MCG TAB PO SCH (08:47)
[2022-09-08] MEDS: LOSARTAN 50 MG TAB PO SCH (08:47)
[2022-09-08] MEDS: CITALOPRAM HYDROBROMIDE 20 MG TAB PO SCH (08:47)
[2022-09-08] MEDS: amLODIPine 10 MG TAB PO SCH (08:47)
[2022-09-08] MEDS ORDERED: atenoloL 50 MG TAB PO SCH (09:00)
--- NOTE | 2022-09-08 10:09 | CA ---
Transthoracic Echo Report Name: Naomi Dc Age: 72 Gender: F : 1950 Exam Date: 09/07/2022 14:34 Exam Location: [employer] Echo Ht (in): 63 Wt (lb): 200 Ordering Physician: Sandeep Hand MD Attending/Referring Phys: Copy Holder Marianna Martini RDCS Procedure CPT: Indications: chf Cardiac Hx: Technical Quality: Contrast 1: Total Dose (mL): Contrast 2: Total Dose (mL): MEASUREMENTS (Male / Female) Normal Values 2D ECHO LV Diastolic Diameter PLAX 6.2 cm 4.2 - 5.9 / 3.9 - 5.3 cm LV Systolic Diameter PLAX 5.1 cm IVS Diastolic Thickness 1.6 cm 0.6 - 1.0 / 0.6 - 0.9 cm LVPW Diastolic Thickness 1.9 cm 0.6 - 1.0 / 0.6 - 0.9 cm LV Relative Wall Thickness 0.6 LA Systolic Diameter LX 4.5 cm 3.0 - 4.0 / 2.7 - 3.8 cm LA Volume 91.9 cm??? 18 - 58 / 22 - 52 cm??? M-MODE MV E Point Septal Separation 0.4 cm DOPPLER MV Area PHT 4.7 cm??? Mitral E Point Velocity 73.0 cm/s Mitral A Point Velocity 98.8 cm/s Mitral E to A Ratio 0.7 MV Deceleration Time 162.9 ms FINDINGS Left Ventricle Left ventricular ejection fraction is estimated at 50-55%. Mildly increased left ventricular wall thickness. Right Ventricle Normal right ventricular size and function. Right Atrium Normal right atrial size. Left Atrium Moderately increased left atrial diameter. Severely increased left atrial volume. Moderately increased left atrial area. Mitral Valve Structurally normal mitral valve. Mild mitral regurgitation. Aortic Valve Trileaflet aortic valve. Tricuspid Valve Structurally normal tricuspid valve. Mild tricuspid regurgitation. Pulmonic Valve Structurally normal pulmonic valve. Pericardium Small pericardial effusion. Aorta Normal size aortic root and proximal ascending aorta. CONCLUSIONS Normal LV systolic function Thickened calcific aortic valve leaflets without stenosis Left atrial enlargement Previewed by: Dr. Travis Ramirez MD (Electronically Signed) Final Date: 08 September 2022 10:08
[2022-09-08 11:54] LABS: Glucose,Whole Blood 225 mg/dL (70-110)
[2022-09-08 12:09] LABS: Basophils % (A) 0 %; Eosinophils # (A) 0.1 k/uL (0-0.7); Eosinophils % (A) 1 %; HCT 32.9 % (34.0-46.0); HGB 11.5 gm/dL (11.4-16.0); Lymphocytes # (A) 1.2 k/uL (1.0-4.8); Lymphocytes % (A) 22 %; MCH 32.7 pg (25.0-35.0); MCHC 35.1 g/dL (31.0-37.0); MCV 93.3 fL (80.0-100.0); Mean Platelet Volume 8.4; Monocytes # (A) 0.4 k/uL (0-1.0); Monocytes % (A) 8 %; Neutrophils # (A) 3.5 k/uL (1.3-7.7); Neutrophils % (A) 67 %; Platelet Count 211 k/uL (150-450); Poikilocytosis Slight; RBC 3.53 m/uL (3.80-5.40); RDW 13.3 % (11.5-15.5); WBC 5.2 k/uL (3.8-10.6)
[2022-09-08 12:19] LABS: African American GFR (CKD) 63 (>60 ml/min/1.73 sqM); Anion Gap 7 mmol/L; Blood Urea Nitrogen 21 mg/dL (7-17); Calcium 8.1 mg/dL (8.4-10.2); Carbon Dioxide 30 mmol/L (22-30); Chloride 100 mmol/L (98-107); Glucose 217 mg/dL (74-99); Non-African American GFR(CKD) 55 (>60 ml/min/1.73 sqM); Sodium 137 mmol/L (137-145)
[2022-09-08 12:46] LABS: Potassium 2.6 mmol/L (3.5-5.1)
[2022-09-08] MEDS ORDERED: Potassium Replacement Protocol 1 EACH MISC MISCELLANE PRN (13:58)
--- NOTE | 2022-09-08 15:05 | P.PN ---
Subjective Progress Note Date: 09/08/22 Principal diagnosis: Shortness of breath Hospital Course: 72-year-old female with past medical history of diabetes, hypertension, dyslipidemia presenting with shortness of breath. She is being admitted for new onset CHF exacerbation. Cardiology consulted. On IV diuretics. Echo pending. She is also in hypertensive urgency/emergency. Troponin mildly elevated. Subjective: She was seen and examined at bedside. No acute events overnight. She denies a ny chest pain, shortness of breath, abdominal pain. Her breathing is improved compared to yesterday. Pertinent positives and negatives as discussed above, a complete review of systems was performed and all other systems are negative. Vitals Signs Reviewed. General: nontoxic, no distress, appears at stated age Derm: warm, dry Head: atraumatic, normocephalic, symmetric Eyes: EOMI, no lid lag, anicteric sclera, pupils equal round reactive to light ENT: Nose and ears atraumatic, no thrush, no pharyngeal erythema Neck: No thyromegaly, no cervical lymphadenopathy, trachea midline, supple Mouth: no lip lesion, mucus membranes moist Cardiovascular: S1S2 reg, bradycardic, no murmur, 2+ pitting edema up to knees bilaterally Lungs: Bilateral rales at the bases, no accessory muscle use, on 2 L nasal cannula Abdominal: soft, nontender to palpation, no guarding, no appreciable organomegaly, normal bowel sounds Ext: no gross muscle atrophy, muscle strength muscle strength 5 out of 5 in all 4 extremities, no contractures Neuro: CN II-XII grossly intact, light touch intact all 4 extremities Psych: Alert, oriented, appropriate affect Assessment and Plan: Acute hypoxic respiratory failure New onset diastolic congestive heart failure exacerbation -Echo showed LVEF 50-55% -Cardiology consult -Strict I's and O's -IV Lasix Troponin elevation -Likely demand ischemia -Telemetry -Flat troponin Hypertensive urgency -Restarted home medication including losartan and amlodipine -Also started on spironolactone Sinus bradycardia -We will hold atenolol for now Insulin-dependent diabetes -Continue home insulin -holding glempiride -Sliding scale -A1c 9.6 Hypothyroidism -Continue Synthroid -TSH normal Hypomagnesemia Hypokalemia -Replete DNR/DNI DVT prophylaxis: Subcu heparin Anticipated discharge date: Anticipated discharge place: Home Objective - Vital Signs Vital signs: Vital Signs Temp 98.3 F 09/08/22 08:38 Pulse 44 L 09/08/22 08:38 Resp 16 09/08/22 08:38 BP 142/70 09/08/22 08:38 Pulse Ox 98 09/08/22 08:38 FiO2 Intake & Output 09/07/22 09/08/22 09/08/22 18:59 06:59 18:59 Intake Total 5 Output Total 550 Balance -550 5 Weight 90.718 kg 91.3 kg Intake: IV 5 Invasive Line 1 5 Output: Urine 550 Other: Voiding Method Toilet - Labs CBC & Chem 7: 09/08/22 11:34 09/08/22 11:34 Labs: Abnormal Lab Results - Last 24 Hours (Table) 09/07/22 09/07/22 09/07/22 Range/Units 11:33 14:58 16:48 RBC (3.80-5.40) m/uL Hct (34.0-46.0) % Potassium (3.5-5.1) mmol/L BUN (7-17) mg/dL Glucose (74-99) mg/dL POC Glucose (mg/dL) 358 H (70-110) mg/dL Hemoglobin A1c 9.6 H (0.0-6.0) % Calcium (8.4-10.2) mg/dL Troponin I 0.070 H* (0.000-0.034) ng/mL 09/07/22 09/07/22 09/08/22 Range/Units 18:06 19:55 00:15 RBC (3.80-5.40) m/uL Hct (34.0-46.0) % Potassium (3.5-5.1) mmol/L BUN (7-17) mg/dL Glucose (74-99) mg/dL POC Glucose (mg/dL) 318 H 62 L (70-110) mg/dL Hemoglobin A1c (0.0-6.0) % Calcium (8.4-10.2) mg/dL Troponin I 0.070 H* (0.000-0.034) ng/mL 09/08/22 09/08/22 09/08/22 Range/Units 11:34 11:34 11:53 RBC 3.53 L (3.80-5.40) m/uL Hct 32.9 L (34.0-46.0) % Potassium 2.6 L* (3.5-5.1) mmol/L BUN 21 H (7-17) mg/dL Glucose 217 H (74-99) mg/dL POC Glucose (mg/dL) 225 H (70-110) mg/dL Hemoglobin A1c (0.0-6.0) % Calcium 8.1 L (8.4-10.2) mg/dL Troponin I (0.000-0.034) ng/mL
[2022-09-08] MEDS: POTASSIUM CHLORIDE ER 20 MEQ TAB.ER PO SCH ×3 (16:17→18:08)
[2022-09-08] MEDS: POTASSIUM CHLORIDE 10 MEQ in WATER FOR INJECTION 1 100ML.BAG IVPB SCH (16:19)
[2022-09-08 16:42] LABS: Glucose,Whole Blood 307 mg/dL (70-110)
[2022-09-08] MEDS: INSULIN DETEMIR (LEVEMIR) 100 UNIT/ML SYR SQ SCH (17:14)
[2022-09-08] MEDS: INSULIN NPH 100 UNIT/ML 10 ML VIAL SQ SCH (17:14)
[2022-09-08 19:09] LABS: Chol/HDL Ratio 3.54 Ratio; LDL Cholesterol,Calculated 151.8 mg/dL (0.0-131.0)
[2022-09-08 20:12] LABS: Glucose,Whole Blood 218 mg/dL (70-110)
[2022-09-08] MEDS: LATANOPROST 0.005% OPHTH DROPS 2.5 ML BTL BOTH EYES SCH (20:20)
[2022-09-08] MEDS: ATORVASTATIN 20 MG TAB PO SCH (20:20)
[2022-09-08] MEDS ORDERED: POTASSIUM CHLORIDE ER 20 MEQ TAB.ER PO STA (20:47)
[2022-09-08] MEDS: MAGNESIUM SULFATE-D5W PMX 1 GM in DEXTROSE/WATER 1 100ML.BAG IVPB SCH ×2 (21:17→22:17)
[2022-09-09 05:43] LABS: Glucose,Whole Blood 77 mg/dL (70-110)
[2022-09-09] MEDS: INSULIN ASPART (NovoLOG) 100 UNIT/ML VIAL SQ SCH ×4 (05:49→20:07)
--- NOTE | 2022-09-09 06:49 | P.PN ---
Subjective Progress Note Date: 09/09/22 Principal diagnosis: Hypertension emergency This is a 72-year-old female patient with a past medical history significant for diabetes and hypertension and dyslipidemia and overweight was referred by her primary care physician to the hospital for further evaluation. The patient has been short of breath almost a year according to her. But for the last few weeks the shortness of breath has progressed significantly and it was associated with severe bilateral lower extremities edema up to the groin level. She never been diagnosed with congestive heart failure before. No history of coronary artery disease or congestive heart failure or any cardiac arrhythmia. Never seen a community support associate before. The symptoms of shortness of breath and lower extremities edema was not associated with any chest pain or chest discomfort and no dizziness or lightheadedness or any feeling of heart racing or fluttering or presyncope or syncope. She was seen yesterday at her primary care physician and she was referred to come to the hospital for further investigation. In the hospital she underwent a workup including EKG showing sinus rhythm with sinus bradycardia and nonspecific changes. Chest x-ray showed findings consistent with congestive heart failure. Troponin came in to be slightly elevated but seems to be flat. The troponin doesn't seems to be consistent with acute coronary syndrome and likely related to the heart failure as well as elevated blood pressure. Beside that she was found to have elevated pressure seems to be consistent with hypertension emergency. She stated that she does have history of hypertension and she has been taking her medications regularly but apparently reviewing her home medication she has been consuming a lot of nonsteroid anti-inflammatory medications regularly which could be contributing to be elevated blood pressure. An echo is in process to be done. On examination she does have severe bilateral lower 70s edema along with chronic skin changes and she has also diminished breathing sounds bilaterally. She does have evidence of biventricular failure. September [id number] The patient was seen this morning. She is overall feeling better in terms of shortness of breath. On examination she still have crackles on the left side an d edema which has improved but still there. No symptoms of chest pain or chest discomfort. She has been diuresing very well. The pressure is better but not ideal as of yet. She underwent an echo which revealed preserved LV function was no significant valvular abnormalities. At this point I would advise continue IV Lasix for additional 24 hours. Continue monitor the kidney function and electr olytes. Consider adding hydralazine at 25 mg by mouth 3 times a day to get the pressure under better control. Monitor the patient for additional 24-hour Objective - Vital Signs Vital signs: Vital Signs Temp 98 F 09/09/22 03:12 Pulse 50 L 09/09/22 03:12 Resp 16 09/09/22 03:12 BP 164/82 09/09/22 03:12 Pulse Ox 94 L 09/09/22 03:12 FiO2 Intake & Output 09/08/22 09/08/22 09/09/22 06:59 18:59 06:59 Intake Total 10 Output Total 978 034 5026 Balance -550 -640 -1000 Weight 91.3 kg 91.4 kg Intake: IV 10 Invasive Line 1 10 Output: Urine 199 853 0944 Other: Voiding Method Toilet Toilet # Voids 3 - Constitutional General appearance: Present: no acute distress - Respiratory Respiratory: left: rales - Cardiovascular Rhythm: regular - Labs CBC & Chem 7: 09/08/22 11:34 09/08/22 19:45 Labs: Abnormal Lab Results - Last 24 Hours (Table) 09/08/22 09/08/22 09/08/22 Range/Units 11:34 11:34 11:34 RBC 3.53 L (3.80-5.40) m/uL Hct 32.9 L (34.0-46.0) % Potassium 2.6 L* (3.5-5.1) mmol/L BUN 21 H (7-17) mg/dL Glucose 217 H (74-99) mg/dL POC Glucose (mg/dL) (70-110) mg/dL Hemoglobin A1c 9.4 H (0.0-6.0) % Calcium 8.1 L (8.4-10.2) mg/dL Magnesium (1.6-2.3) mg/dL Triglycerides 174.00 H (0.00-149.00) mg/dL Cholesterol 260.00 H (0.00-200.00) mg/dL LDL Cholesterol, Calc 151.8 H (0.0-131.0) mg/dL HDL Cholesterol 73.40 H (40.00-60.00) mg/dL 09/08/22 09/08/22 09/08/22 Range/Units 11:34 11:53 16:40 RBC (3.80-5.40) m/uL Hct (34.0-46.0) % Potassium (3.5-5.1) mmol/L BUN (7-17) mg/dL Glucose (74-99) mg/dL POC Glucose (mg/dL) 225 H 307 H (70-110) mg/dL Hemoglobin A1c (0.0-6.0) % Calcium (8.4-10.2) mg/dL Magnesium 1.3 L (1.6-2.3) mg/dL Triglycerides (0.00-149.00) mg/dL Cholesterol (0.00-200.00) mg/dL LDL Cholesterol, Calc (0.0-131.0) mg/dL HDL Cholesterol (40.00-60.00) mg/dL 09/08/22 09/08/22 Range/Units 19:45 20:11 RBC (3.80-5.40) m/uL Hct (34.0-46.0) % Potassium 2.9 L (3.5-5.1) mmol/L BUN (7-17) mg/dL Glucose (74-99) mg/dL POC Glucose (mg/dL) 218 H (70-110) mg/dL Hemoglobin A1c (0.0-6.0) % Calcium (8.4-10.2) mg/dL Magnesium (1.6-2.3) mg/dL Triglycerides (0.00-149.00) mg/dL Cholesterol (0.00-200.00) mg/dL LDL Cholesterol, Calc (0.0-131.0) mg/dL HDL Cholesterol (40.00-60.00) mg/dL Assessment and Plan Assessment: Assessment #1 heart failure exacerbation of unknown etiology at this point with evidence of biventricular failure #2 hypertension emergency complicated by heart failure #3 overweight #4 diabetes mellitus type 2 #5 evidence of myocardial injury was no evidence of ischemia clinically or by EKG Plan #1 continue the current dose of Lasix IV #2 add hydralazine to the current medical regimen #3 continue monitor the kidney function and electrolytes #4 the echo was reviewed as described above
[2022-09-09] MEDS: CITALOPRAM HYDROBROMIDE 20 MG TAB PO SCH (09:09)
[2022-09-09] MEDS: amLODIPine 10 MG TAB PO SCH (09:09)
[2022-09-09] MEDS: hydrALAZINE HCL 25 MG TAB PO SCH ×3 (09:09→20:07)
[2022-09-09] MEDS: HEPARIN SODIUM,PORCINE/PF 5,000 UNIT/0.5 ML SYRINGE SQ SCH ×3 (09:09→23:02)
[2022-09-09] MEDS: SPIRONOLACTONE 25 MG TAB PO SCH (09:09)
[2022-09-09] MEDS: LOSARTAN 50 MG TAB PO SCH (09:09)
[2022-09-09] MEDS: FUROSEMIDE 10 MG/ML 4 ML VIAL IV SCH ×2 (09:09→20:07)
[2022-09-09] MEDS: LEVOTHYROXINE 75 MCG TAB PO SCH (09:09)
[2022-09-09 09:29] LABS: Calcium 7.8 mg/dL (8.4-10.2); Magnesium 1.7 mg/dL (1.6-2.3); Potassium 3.4 mmol/L (3.5-5.1)
[2022-09-09] MEDS ORDERED: POTASSIUM CHLORIDE ER 20 MEQ TAB.ER PO STA (10:49)
--- NOTE | 2022-09-09 12:07 | P.PN ---
Subjective Progress Note Date: 09/09/22 Principal diagnosis: Shortness of breath Hospital Course: 72-year-old female with past medical history of diabetes, hypertension, dyslipidemia presenting with shortness of breath. She is being admitted for new onset CHF exacerbation. Cardiology consulted. On IV diuretics. Echo showed LVEF 50-55%. She was also in hypertensive urgency/emergency. Discontinue atenolol due to bradycardia, patient started on hydralazine and spironolactone. Troponin mildly elevated likely demand ischemia. Subjective: She was seen and examined at bedside. No acute events overnight. She denies any chest pain, shortness of breath, abdominal pain. Her breathing is improved compared to yesterday. Pertinent positives and negatives as discussed above, a complete review of systems was performed and all other systems are negative. Vitals Signs Reviewed. General: nontoxic, no distress, appears at stated age Derm: warm, dry Head: atraumatic, normocephalic, symmetric Eyes: EOMI, no lid lag, anicteric sclera, pupils equal round reactive to light ENT: Nose and ears atraumatic, no thrush, no pharyngeal erythema Neck: No thyromegaly, no cervical lymphadenopathy, trachea midline, supple Mouth: no lip lesion, mucus membranes moist Cardiovascular: S1S2 reg, bradycardic, no murmur, 2+ pitting edema up to mid chacon bilaterally Lungs: Bilateral rales at the bases, no accessory muscle use, on 2 L nasal cannula Abdominal: soft, nontender to palpation, no guarding, no appreciable organomegaly, normal bowel sounds Ext: no gross muscle atrophy, muscle strength muscle strength 5 out of 5 in all 4 extremities, no contractures Neuro: CN II-XII grossly intact, light touch intact all 4 extremities Psych: Alert, oriented, appropriate affect Assessment and Plan: Acute hypoxic respiratory failure New onset diastolic congestive heart failure exacerbation -Echo showed LVEF 50-55% -Cardiology consult -Strict I's and O's -IV Lasix, , for another day -Renal oxygen Troponin elevation -Likely demand ischemia -Telemetry -Flat troponin Hypertensive urgency -Restarted home medication including losartan and amlodipine -Also started on spironolactone, and hydralazine Sinus bradycardia -We will hold atenolol for now Insulin-dependent diabetes -Continue home insulin -holding glempiride -Sliding scale -A1c 9.6 Hypothyroidism -Continue Synthroid -TSH normal Hypomagnesemia Hypokalemia -Replete DNR/DNI DVT prophylaxis: Subcu heparin Anticipated discharge date: Anticipated discharge place: Home Objective - Vital Signs Vital signs: Vital Signs Temp 98.0 F 09/09/22 08:00 Pulse 50 L 09/09/22 08:00 Resp 16 09/09/22 08:00 BP 182/74 09/09/22 08:00 Pulse Ox 96 09/09/22 08:00 FiO2 Intake & Output 09/08/22 09/09/22 09/09/22 18:59 06:59 18:59 Intake Total 10 118 Output Total 650 1000 Balance -640 -1000 118 Weight 91.4 kg Intake: IV 10 Invasive Line 1 10 Oral 118 Output: Urine 650 1000 Other: Voiding Method Toilet Toilet # Voids 3 - Labs CBC & Chem 7: 09/08/22 11:34 09/09/22 08:31 Labs: Abnormal Lab Results - Last 24 Hours (Table) 09/08/22 09/08/22 09/08/22 Range/Units 11:34 11:34 11:34 RBC 3.53 L (3.80-5.40) m/uL Hct 32.9 L (34.0-46.0) % Potassium 2.6 L* (3.5-5.1) mmol/L BUN 21 H (7-17) mg/dL Glucose 217 H (74-99) mg/dL POC Glucose (mg/dL) (70-110) mg/dL Hemoglobin A1c 9.4 H (0.0-6.0) % Calcium 8.1 L (8.4-10.2) mg/dL Magnesium (1.6-2.3) mg/dL Triglycerides 174.00 H (0.00-149.00) mg/dL Cholesterol 260.00 H (0.00-200.00) mg/dL LDL Cholesterol, Calc 151.8 H (0.0-131.0) mg/dL HDL Cholesterol 73.40 H (40.00-60.00) mg/dL 09/08/22 09/08/22 09/08/22 Range/Units 11:34 16:40 19:45 RBC (3.80-5.40) m/uL Hct (34.0-46.0) % Potassium 2.9 L (3.5-5.1) mmol/L BUN (7-17) mg/dL Glucose (74-99) mg/dL POC Glucose (mg/dL) 307 H (70-110) mg/dL Hemoglobin A1c (0.0-6.0) % Calcium (8.4-10.2) mg/dL Magnesium 1.3 L (1.6-2.3) mg/dL Triglycerides (0.00-149.00) mg/dL Cholesterol (0.00-200.00) mg/dL LDL Cholesterol, Calc (0.0-131.0) mg/dL HDL Cholesterol (40.00-60.00) mg/dL 09/08/22 09/09/22 Range/Units 20:11 08:31 RBC (3.80-5.40) m/uL Hct (34.0-46.0) % Potassium 3.4 L (3.5-5.1) mmol/L BUN 23 H (7-17) mg/dL Glucose 205 H (74-99) mg/dL POC Glucose (mg/dL) 218 H (70-110) mg/dL Hemoglobin A1c (0.0-6.0) % Calcium 7.8 L (8.4-10.2) mg/dL Magnesium (1.6-2.3) mg/dL Triglycerides (0.00-149.00) mg/dL Cholesterol (0.00-200.00) mg/dL LDL Cholesterol, Calc (0.0-131.0) mg/dL HDL Cholesterol (40.00-60.00) mg/dL
[2022-09-09 13:36] VITALS: BMI 35.6
[2022-09-09] MEDS: MAGNESIUM SULFATE-D5W PMX 1 GM in DEXTROSE/WATER 1 100ML.BAG IVPB SCH ×3 (16:03→18:45)
[2022-09-09 16:34] LABS: Glucose,Whole Blood 306 mg/dL (70-110)
[2022-09-09] MEDS: INSULIN NPH 100 UNIT/ML 10 ML VIAL SQ SCH (17:26)
[2022-09-09] MEDS: INSULIN DETEMIR (LEVEMIR) 100 UNIT/ML SYR SQ SCH (17:26)
[2022-09-09 19:49] LABS: Glucose,Whole Blood 332 mg/dL (70-110)
[2022-09-09] MEDS: ATORVASTATIN 20 MG TAB PO SCH (20:07)
[2022-09-09] MEDS: LATANOPROST 0.005% OPHTH DROPS 2.5 ML BTL BOTH EYES SCH (20:11)
[2022-09-10 00:11] LABS: Glucose,Whole Blood 49 mg/dL (70-110)
[2022-09-10 00:32] LABS: Glucose,Whole Blood 80 mg/dL (70-110)
[2022-09-10 05:56] LABS: Glucose,Whole Blood 112 mg/dL (70-110)
[2022-09-10] MEDS: INSULIN ASPART (NovoLOG) 100 UNIT/ML VIAL SQ SCH ×4 (06:00→20:26)
--- NOTE | 2022-09-10 06:42 | P.PN ---
Subjective Progress Note Date: 09/10/22 Principal diagnosis: Hypertension emergency This is a 72-year-old female patient with a past medical history significant for diabetes and hypertension and dyslipidemia and overweight was referred by her primary care physician to the hospital for further evaluation. The patient has been short of breath almost a year according to her. But for the last few weeks the shortness of breath has progressed significantly and it was associated with severe bilateral lower extremities edema up to the groin level. She never been diagnosed with congestive heart failure before. No history of coronary artery disease or congestive heart failure or any cardiac arrhythmia. Never seen a unit manager rn before. The symptoms of shortness of breath and lower extremities edema was not associated with any chest pain or chest discomfort and no dizziness or lightheadedness or any feeling of heart racing or fluttering or presyncope or syncope. She was seen yesterday at her primary care physician and she was referred to come to the hospital for further investigation. In the hospital she underwent a workup including EKG showing sinus rhythm with sinus bradycardia and nonspecific changes. Chest x-ray showed findings consistent with congestive heart failure. Troponin came in to be slightly elevated but seems to be flat. The troponin doesn't seems to be consistent with acute coronary syndrome and likely related to the heart failure as well as elevated blood pressure. Beside that she was found to have elevated pressure seems to be consistent with hypertension emergency. She stated that she does have history of hypertension and she has been taking her medications regularly but apparently reviewing her home medication she has been consuming a lot of nonsteroid anti-inflammatory medications regularly which could be contributing to be elevated blood pressure. An echo is in process to be done. On examination she does have severe bilateral lower 70s edema along with chronic skin changes and she has also diminished breathing sounds bilaterally. She does have evidence of biventricular failure. September 092021 The patient was seen this morning. She is overall feeling better in terms of shortness of breath. On examination she still have crackles on the left side an d edema which has improved but still there. No symptoms of chest pain or chest discomfort. She has been diuresing very well. The pressure is better but not ideal as of yet. She underwent an echo which revealed preserved LV function was no significant valvular abnormalities. At this point I would advise continue IV Lasix for additional 24 hours. Continue monitor the kidney function and electr olytes. Consider adding hydralazine at 25 mg by mouth 3 times a day to get the pressure under better control. Monitor the patient for additional 24-hour September [id number] The patient was seen and evaluated and examined this morning. Overall she is feeling better. The shortness of breath has improved significantly. She continues to have bilateral lower extremities edema but again that has improved as well. Currently she is not on oxygen with saturation above 90%. On examination she does have overall clear breathing sounds bilaterally with bilateral lower extremities edema which again has improved. No chest pain or chest discomfort. The pressure continues to be elevated. Her blood pressure right now is consistent with persistent hypertension. She is bradycardic with heart rate in the 50s. I'm going to increase the dose of hydralazine to 50 mg by mouth 3 times a day for better blood pressure control. Advise continue IV Lasix for additional 24 hours and continue monitor the kidney function and electrolytes. The echo revealed preserved left ventricular systolic function wa s mild valvular abnormalities. Objective - Vital Signs Vital signs: Vital Signs Temp 97.9 F 09/10/22 03:18 Pulse 58 L 09/10/22 03:18 Resp 18 09/10/22 03:18 BP 152/60 09/10/22 03:18 Pulse Ox 90 L 09/10/22 03:18 FiO2 Intake & Output 09/09/22 09/09/22 09/10/22 06:59 18:59 06:59 Intake Total 901 Output Total 1000 800 Balance -1000 901 -800 Weight 91.4 kg 91.4 kg 91 kg Intake: Oral 901 Output: Urine 1000 800 Other: Voiding Method Toilet Toilet - Constitutional General appearance: Present: no acute distress - Respiratory Respiratory: bilateral: CTA - Cardiovascular Rhythm: regular Heart sounds: normal: S1, S2 Abnormal Heart Sounds: Present: systolic murmur - Labs CBC & Chem 7: 09/08/22 11:34 09/09/22 08:31 Labs: Abnormal Lab Results - Last 24 Hours (Table) 09/09/22 09/09/22 09/09/22 Range/Units 08:31 16:33 19:48 Potassium 3.4 L (3.5-5.1) mmol/L BUN 23 H (7-17) mg/dL Glucose 205 H (74-99) mg/dL POC Glucose (mg/dL) 306 H 332 H (70-110) mg/dL Calcium 7.8 L (8.4-10.2) mg/dL 09/10/22 09/10/22 Range/Units 00:09 05:54 Potassium (3.5-5.1) mmol/L BUN (7-17) mg/dL Glucose (74-99) mg/dL POC Glucose (mg/dL) 49 L 112 H (70-110) mg/dL Calcium (8.4-10.2) mg/dL Assessment and Plan Assessment: Assessment #1 heart failure exacerbation related to heart failure with preserved ejection fraction with evidence of biventricular failure #2 hypertension emergency complicated by heart failure #3 resistant hypertension #4 diabetes mellitus type 2 #5 evidence of myocardial injury was no evidence of ischemia clinically or by EKG or by echo Plan #1 continue the current dose of Lasix IV #2 increase the dose of hydralazine to 50 mg by mouth 3 times a day #3 continue monitor the kidney function and electrolytes #4 the echo was reviewed as described above
[2022-09-10 06:56] LABS: Calcium 7.8 mg/dL (8.4-10.2); Potassium 3.4 mmol/L (3.5-5.1)
[2022-09-10] MEDS ORDERED: POTASSIUM CHLORIDE ER 20 MEQ TAB.ER PO STA (07:02)
[2022-09-10] MEDS: LEVOTHYROXINE 75 MCG TAB PO SCH (08:47)
[2022-09-10] MEDS: HEPARIN SODIUM,PORCINE/PF 5,000 UNIT/0.5 ML SYRINGE SQ SCH ×3 (08:47→23:03)
[2022-09-10] MEDS: amLODIPine 10 MG TAB PO SCH (08:47)
[2022-09-10] MEDS: LOSARTAN 50 MG TAB PO SCH (08:47)
[2022-09-10] MEDS: SPIRONOLACTONE 25 MG TAB PO SCH (08:47)
[2022-09-10] MEDS: CITALOPRAM HYDROBROMIDE 20 MG TAB PO SCH (08:47)
[2022-09-10] MEDS: hydrALAZINE HCL 25 MG TAB PO SCH ×3 (08:47→20:26)
[2022-09-10] MEDS: FUROSEMIDE 10 MG/ML 4 ML VIAL IV SCH ×2 (08:47→20:26)
--- NOTE | 2022-09-10 11:24 | P.PN ---
Subjective Progress Note Date: 09/10/22 Principal diagnosis: Shortness of breath Hospital Course: 72-year-old female with past medical history of diabetes, hypertension, dyslipidemia presenting with shortness of breath. She is being admitted for new onset CHF exacerbation. Cardiology consulted. On IV diuretics. Echo showed LVEF 50-55%. She was also in hypertensive urgency/emergency. Discontinue atenolol due to bradycardia, patient started on hydralazine and spironolactone. Troponin mildly elevated likely demand ischemia. Subjective: She was seen and examined at bedside. No acute events overnight. She denies any chest pain, shortness of breath, abdominal pain. Her breathing is improved compared to yesterday. Pertinent positives and negatives as discussed above, a complete review of systems was performed and all other systems are negative. Vitals Signs Reviewed. General: nontoxic, no distress, appears at stated age Derm: warm, dry Head: atraumatic, normocephalic, symmetric Eyes: EOMI, no lid lag, anicteric sclera, pupils equal round reactive to light ENT: Nose and ears atraumatic, no thrush, no pharyngeal erythema Neck: No thyromegaly, no cervical lymphadenopathy, trachea midline, supple Mouth: no lip lesion, mucus membranes moist Cardiovascular: S1S2 reg, bradycardic, no murmur, 2+ pitting edema up to mid chacon bilaterally Lungs: Bilateral rales at the bases, no accessory muscle use, on 2 L nasal cannula Abdominal: soft, nontender to palpation, no guarding, no appreciable organomegaly, normal bowel sounds Ext: no gross muscle atrophy, muscle strength muscle strength 5 out of 5 in all 4 extremities, no contractures Neuro: CN II-XII grossly intact, light touch intact all 4 extremities Psych: Alert, oriented, appropriate affect Assessment and Plan: Acute hypoxic respiratory failure New onset diastolic congestive heart failure exacerbation -Echo showed LVEF 50-55% -Cardiology consult -Strict I's and O's -IV Lasix, , for another day -Renal oxygen Troponin elevation -Likely demand ischemia -Telemetry -Flat troponin Hypertensive urgency -Restarted home medication including losartan and amlodipine -Also started on spironolactone, and hydralazine (dose increased) Sinus bradycardia -We will hold atenolol for now Insulin-dependent diabetes -Continue home insulin -holding glempiride -Sliding scale -A1c 9.6 Hypothyroidism -Continue Synthroid -TSH normal Hypomagnesemia - resolved Hypokalemia -Replete DNR/DNI DVT prophylaxis: Subcu heparin Anticipated discharge date: Anticipated discharge place: Home Objective - Vital Signs Vital signs: Vital Signs Temp 98.3 F 09/10/22 08:00 Pulse 63 09/10/22 08:00 Resp 18 09/10/22 08:00 BP 182/51 09/10/22 08:00 Pulse Ox 90 L 09/10/22 08:00 FiO2 Intake & Output 09/09/22 09/10/22 09/10/22 18:59 06:59 18:59 Intake Total 901 118 Output Total 800 1000 Balance 953 -868 -080 Weight 91.4 kg 91 kg Intake: Oral 901 118 Output: Urine 800 1000 Other: Voiding Method Toilet - Labs CBC & Chem 7: 09/08/22 11:34 09/10/22 05:56 Labs: Abnormal Lab Results - Last 24 Hours (Table) 09/09/22 09/09/22 09/10/22 Range/Units 16:33 19:48 00:09 Potassium (3.5-5.1) mmol/L BUN (7-17) mg/dL Creatinine (0.52-1.04) mg/dL Glucose (74-99) mg/dL POC Glucose (mg/dL) 306 H 332 H 49 L (70-110) mg/dL Calcium (8.4-10.2) mg/dL 09/10/22 09/10/22 Range/Units 05:54 05:56 Potassium 3.4 L (3.5-5.1) mmol/L BUN 25 H (7-17) mg/dL Creatinine 1.06 H (0.52-1.04) mg/dL Glucose 106 H (74-99) mg/dL POC Glucose (mg/dL) 112 H (70-110) mg/dL Calcium 7.8 L (8.4-10.2) mg/dL
[2022-09-10 11:43] LABS: Glucose,Whole Blood 221 mg/dL (70-110)
[2022-09-10 16:19] LABS: Glucose,Whole Blood 304 mg/dL (70-110)
[2022-09-10] MEDS: INSULIN DETEMIR (LEVEMIR) 100 UNIT/ML SYR SQ SCH (17:31)
[2022-09-10] MEDS: INSULIN NPH 100 UNIT/ML 10 ML VIAL SQ SCH (17:31)
[2022-09-10 20:21] LABS: Glucose,Whole Blood 266 mg/dL (70-110)
[2022-09-10] MEDS: ATORVASTATIN 20 MG TAB PO SCH (20:26)
[2022-09-10] MEDS: LATANOPROST 0.005% OPHTH DROPS 2.5 ML BTL BOTH EYES SCH (20:37)
[2022-09-10] MEDS: hydrALAZINE HCL 50 MG TAB PO SCH (20:38)
[2022-09-11 06:27] LABS: Glucose,Whole Blood 98 mg/dL (70-110)
[2022-09-11] MEDS: INSULIN ASPART (NovoLOG) 100 UNIT/ML VIAL SQ SCH (06:28)
[2022-09-11] MEDS ORDERED: INFLUENZA VACC HIGH-DOSE (65+) 240 MCG/0.7 ML SYRINGE IM ONE (08:02)
[2022-09-11 08:57] LABS: Glucose,Whole Blood 291 mg/dL (70-110)
[2022-09-11 08:59] LABS: Glucose,Whole Blood 291 mg/dL (70-110)
[2022-09-11 09:24] VITALS: BP 183/69; PULSE 60; RESP 18; TEMP 98.7
[2022-09-11] MEDS: LOSARTAN 50 MG TAB PO SCH (09:25)
[2022-09-11] MEDS: HEPARIN SODIUM,PORCINE/PF 5,000 UNIT/0.5 ML SYRINGE SQ SCH (09:25)
[2022-09-11] MEDS: hydrALAZINE HCL 50 MG TAB PO SCH (09:25)
[2022-09-11] MEDS: CITALOPRAM HYDROBROMIDE 20 MG TAB PO SCH (09:25)
[2022-09-11] MEDS: SPIRONOLACTONE 25 MG TAB PO SCH (09:25)
[2022-09-11] MEDS: amLODIPine 10 MG TAB PO SCH (09:25)
[2022-09-11] MEDS: FUROSEMIDE 10 MG/ML 4 ML VIAL IV SCH (09:25)
[2022-09-11] MEDS: LEVOTHYROXINE 75 MCG TAB PO SCH (09:26)
--- NOTE | 2022-09-11 10:01 | P.DS ---
Providers Date of admission: 09/07/22 13:47 Expected date of discharge: 09/11/22 Attending physician: Juan Benjamin MD Consults: 09/07/22 13:47 Consult Physician Routine Consulting Provider: [facility] Consult Reason/Comments: chf Do you want consulting provider notified?: Yes, Notify in am Primary care physician: [facility] Course: Discharge Diagnosis: Acute hypoxic respiratory failure New-onset diastolic congestive heart failure exacerbation Paul elevation Hypertensive urgency/emergency Sinus bradycardia Insulin-dependent diabetes Hypothyroidism Hypomagnesemia Hypokalemia Hospital Course: 72-year-old female with past medical history of diabetes, hypertension, dyslipidemia presenting with shortness of breath. She was admitted for new onset CHF exacerbation. Cardiology consulted. On IV diuretics. Discharged on oral diuretics, 40 mg Lasix BID. Echo showed LVEF 50-55%. She was also in hypertensive urgency/emergency. Discontinue atenolol due to sinus bradycardia, patient started on hydralazine and spironolactone. TSH was normal. Troponin mildly elevated likely demand ischemia. A1c was 9.6, patient continued on home insulin, needs outpatient follow-up for further titration of insulin. Patient also had hypomagnesemia and hyperkalemia, required repletion. Patient discharged on room air. Patient seen and examined at bedside.[] Vital signs reviewed and stable. General: nontoxic, no distress, appears at stated age Derm: warm, dry Head: atraumatic, normocephalic, symmetric Eyes: EOMI, no lid lag, anicteric sclera, pupils equal round reactive to light ENT: Nose and ears atraumatic Neck: No thyromegaly, no cervical lymphadenopathy, trachea midline, supple Mouth: no lip lesion, mucus membranes moist Cardiovascular: S1S2 reg, bradycardic, no murmur, 2+ pitting edema distal to mid chacon bilaterally Lungs: Bilateral rales at the bases, no accessory muscle use, on room air Abdominal: soft, nontender to palpation, no guarding, no appreciable organomegaly, normal bowel sounds Ext: no gross muscle atrophy, muscle strength muscle strength 5 out of 5 in all 4 extremities, no contractures Neuro: CN II-XII grossly intact, light touch intact all 4 extremities Psych: Alert, oriented, appropriate affect A total of 39 minutes of time were spent preparing this complex discharge summary. Patient was discharged on 09/11/22 at 7:49. Patient Condition at Discharge: Stable Plan - Discharge Summary Discharge Rx Participant: Yes New Discharge Prescriptions: New Spironolactone [Aldactone] 25 mg PO DAILY #30 tab hydrALAZINE HCL [Apresoline] 50 mg PO TID #90 tab Dapagliflozin Propanediol [Farxiga] 10 mg PO DAILY #90 tab Continue Glimepiride [Amaryl] 4 mg PO AC-BRKFST amLODIPine [Norvasc] 10 mg PO DAILY Atorvastatin Calcium [Lipitor] 20 mg PO HS Potassium Chloride [Klor-Con 20] 40 meq PO DAILY Insulin NPH Human Isophane [NovoLIN N] 25 unit SQ W/SUPPER Insulin Glargine [Lantus Vial] 25 unit SQ W/SUPPER Losartan Potassium 100 mg PO DAILY Latanoprost [Latanoprost 0.005%] 1 drop BOTH EYES HS Levothyroxine Sodium [Synthroid] 75 mcg PO DAILY Citalopram Hydrobromide [CeleXA] 20 mg PO DAILY Cholecalciferol [Vitamin D3 (25 Mcg = 1000 Iu)] 25 mcg PO DAILY Changed Furosemide [Lasix] 40 mg PO BID #60 tab Discontinued Naproxen 500 mg PO Q12HR PRN PRN Reason: Pain atenoloL [Tenormin] 50 mg PO DAILY Discharge Medication List Atorvastatin Calcium [Lipitor] 20 mg PO HS 02/14/17 [History] Glimepiride [Amaryl] 4 mg PO AC-KT 02/14/17 [History] Insulin NPH Human Isophane [NovoLIN N] 25 unit SQ W/SUPPER 02/14/17 [History] Potassium Chloride [Klor-Con 20] 40 meq PO DAILY 02/14/17 [History] amLODIPine [Norvasc] 10 mg PO DAILY 02/14/17 [History] Insulin Glargine [Lantus Vial] 25 unit SQ W/SUPPER 03/10/21 [History] Levothyroxine Sodium [Synthroid] 75 mcg PO DAILY 03/10/21 [History] Cholecalciferol [Vitamin D3 (25 Mcg = 1000 Iu)] 25 mcg PO DAILY 09/07/22 [History] Citalopram Hydrobromide [CeleXA] 20 mg PO DAILY 09/07/22 [History] Latanoprost [Latanoprost 0.005%] 1 drop BOTH EYES HS 09/07/22 [History] Losartan Potassium 100 mg PO DAILY 09/07/22 [History] Dapagliflozin Propanediol [Farxiga] 10 mg PO DAILY #90 tab 09/11/22 [Rx] Furosemide [Lasix] 40 mg PO BID #60 tab 09/11/22 [Rx] Spironolactone [Aldactone] 25 mg PO DAILY #30 tab 09/11/22 [Rx] hydrALAZINE HCL [Apresoline] 50 mg PO TID #90 tab 09/11/22 [Rx] Follow up Appointment(s)/Referral(s): Josh Ivory MD [Primary Care Provider] - 1-2 Days (OFFICE WILL CALL YOU WITH AN APPOINTMENT DATE AND TIME.) Harjit Flores MD [STAFF PHYSICIAN] - 1 Week (OFFICE WILL CONTACT YOU WITH APPOINTMENT DATE AND TIME.) Patient Instructions/Handouts: Spironolactone (By mouth), Furosemide (By mouth), Hydralazine/Hydrochlorothiazide (By mouth), Heart Failure (DC), Heart Healthy Diet (DC), Chronic Hypertension (DC) Activity/Diet/Wound Care/Special Instructions: Please see PCP in 1-2 days Discharge Disposition: HOME SELF-CARE
--- NOTE | 2022-09-11 11:33 | P.PN ---
Subjective Progress Note Date: 09/11/22 HISTORY OF PRESENT ILLNESS: Hypertension emergency This is a 72-year-old female patient with a past medical history significant for diabetes and hypertension and dyslipidemia and overweight was referred by her primary care physician to the hospital for further evaluation. The patient has been short of breath almost a year according to her. But for the last few weeks the shortness of breath has progressed significantly and it was associated with severe bilateral lower extremities edema up to the groin level. She never been diagnosed with congestive heart failure before. No history of coronary artery disease or congestive heart failure or any cardiac arrhythmia. Never seen a metal treater before. The symptoms of shortness of breath and lower extremities edema was not associated with any chest pain or chest discomfort and no dizziness or lightheadedness or any feeling of heart racing or fluttering or presyncope or syncope. She was seen yesterday at her primary care physician and she was referred to come to the hospital for further investigation. In the hospital she underwent a workup including EKG showing sinus rhythm with sinus bradycardia and nonspecific changes. Chest x-ray showed findings consistent with congestive heart failure. Troponin came in to be slightly elevated but seems to be flat. The troponin doesn't seems to be consistent with acute c oronary syndrome and likely related to the heart failure as well as elevated blood pressure. Beside that she was found to have elevated pressure seems to be consistent with hypertension emergency. She stated that she does have history of hypertension and she has been taking her medications regularly but apparently reviewing her home medication she has been consuming a lot of nonsteroid anti-inflammatory medications regularly which could be contributing to be elevated blood pressure. An echo is in process to be done. On examination she does have severe bilateral lower 70s edema along with chronic skin changes and she has also diminished breathing sounds bilaterally. She does have evidence of biventricular failure. September [id number] The patient was seen this morning. She is overall feeling better in terms of shortness of breath. On examination she still have crackles on the left side and edema which has improved but still there. No symptoms of chest pain or chest discomfort. She has been diuresing very well. The pressure is better but not ideal as of yet. She underwent an echo which revealed preserved LV function was no significant valvular abnormalities. At this point I would advise continue IV Lasix for additional 24 hours. Continue monitor the kidney function and electrolytes. Consider adding hydralazine at 25 mg by mouth 3 times a day to get the pressure under better control. Monitor the patient for additional 24-hour September [id number] The patient was seen and evaluated and examined this morning. Overall she is feeling better. The shortness of breath has improved significantly. She continues to have bilateral lower extremities edema but again that has improved as well. Currently she is not on oxygen with saturation above 90%. On examination she does have overall clear breathing sounds bilaterally with bilateral lower extremities edema which again has improved. No chest pain or chest discomfort. The pressure continues to be elevated. Her blood pressure right now is consistent with persistent hypertension. She is bradycardic with heart rate in the 50s. I'm going to increase the dose of hydralazine to 50 mg by mouth 3 times a day for better blood pressure control. Advise continue IV Lasix for additional 24 hours and continue monitor the kidney function and electrolytes. The echo revealed preserved left ventricular systolic function was mild valvular abnormalities. 09/11/2022 Patient examined this morning at the bedside. Patient denies chest pain or pressure. Denies SOB. Blood pressure remains elevated with a SBP in the 180s. However, previous readings in the 150s. PHYSICAL EXAM: VITAL SIGNS: Reviewed. GENERAL: Well-developed in no acute distress. NECK: Supple. No JVD or thyromegaly LUNGS: Respirations even and unlabored. Lungs essentially clear to auscultation bilaterally. HEART: Regular rate and rhythm. S1 and S2 heard. + systolic murmur. EXTREMITIES: Normal range of motion. No clubbing or cyanosis. Peripheral pulses intact. No lower extremity edema ASSESSMENT: Acute heart failure with preserved ejection fraction Hypertensive emergency Diabetes PLAN: Discontinue IV lasix Begin oral lasix 40mg BID Continue additional cardiac medications Continue to monitor blood pressure Add Farxiga 10mg daily Patient to follow up outpatient with Dr. Flores Nurse practitioner note has been reviewed by physician. Signing provider agrees with the documented findings, assessment, and plan of care. Objective - Vital Signs Vital signs: Vital Signs Temp 98.7 F 09/11/22 08:00 Pulse 60 09/11/22 08:00 Resp 18 09/11/22 08:00 BP 183/69 09/11/22 08:00 Pulse Ox 93 L 09/11/22 08:00 FiO2 Intake & Output 09/10/22 09/11/22 09/11/22 18:59 06:59 18:59 Intake Total 118 Output Total 1000 Balance -882 Weight 89.5 kg Intake: Oral 118 Output: Urine 1000 Other: Voiding Method Toilet # Voids 1 1 - Labs CBC & Chem 7: 09/08/22 11:34 09/10/22 05:56 Labs: Abnormal Lab Results - Last 24 Hours (Table) 09/09/22 09/09/22 09/09/22 Range/Units 11:38 11:38 11:38 POC Glucose (mg/dL) 291 H 291 H 291 H (70-110) mg/dL 09/10/22 09/10/22 09/10/22 Range/Units 11:42 16:17 20:20 POC Glucose (mg/dL) 221 H 304 H 266 H (70-110) mg/dL
[2022-09-11] MEDS ORDERED: FUROSEMIDE 40 MG TAB PO SCH (16:00)
== END 2022-09-11 10:38 | disposition home or self-care (01) | DRG 291 ==
LOC: EC 10:42 → 3SCARD 13:47
PROVIDERS: ADMIT Family Medicine; ATTEND Family Medicine
DX: I11.0 Hypertensive heart disease with heart failure (principal); I50.31 Acute diastolic (congestive) heart failure; J96.01 Acute respiratory failure with hypoxia; I16.1 Hypertensive emergency; I24.8 Other forms of acute ischemic heart disease; E83.42 Hypomagnesemia; E87.6 Hypokalemia; R00.1 Bradycardia, unspecified; I16.0 Hypertensive urgency; Z66 Do not resuscitate; E03.9 Hypothyroidism, unspecified; E11.65 Type 2 diabetes mellitus with hyperglycemia; E66.3 Overweight; E78.5 Hyperlipidemia, unspecified; I50.82 Biventricular heart failure; I44.0 Atrioventricular block, first degree; M19.91 Primary osteoarthritis, unspecified site; Z20.822 Contact with and (suspected) exposure to COVID-19; Z23 Encounter for immunization; Z79.4 Long term (current) use of insulin; Z79.84 Long term (current) use of oral hypoglycemic drugs; Z79.890 Hormone replacement therapy; Z79.899 Other long term (current) drug therapy; Z68.35 Body mass index [BMI] 35.0-35.9, adult; Z71.3 Dietary counseling and surveillance
CPT/HCPCS: 36415; 71046; 80048; 80053; 80061; 83036; 83735; 83880; 84132; 84443; 84484; 85025; 85610; 85730; 87502; 87635; 90662; 93005; 93306; 94760; 96365; 96375; 99285

== ENCOUNTER → 2022-10-02 | Outpatient (CLI) | payer MEDICARE, OTHER ==
[2022-10-02 08:27] VITALS: BP 139/75; PULSE 75; RESP 18; TEMP 97.9
--- NOTE | 2022-10-02 14:46 | P.PAINPG ---
Objective - Vital Signs Vital signs: Intake & Output 10/01/22 10/02/22 10/02/22 18:59 06:59 18:59 Weight 86.183 kg PQRS Measure Charge Sheet Comment: A 72 yr old female with a history of severe and chronic low back pain secondary to lumbar DDD and spondylosis with facet arthropathy without myelopathy presents today for evaluation s/p BL L3-L5 RFA. Pt states she experienced 90% relief x 2 wks s/p procedure. Pain level is at 10 /10 in intensity, constant, localizd in the lower lumbar spine, stabbing in character w shooting towards the BL buttocks and hips. Pain is provoked by slouching. Pain is alleviated with PT x 4 wks in 2018, chiropractic treatments years ago, heat, meds (Naproxen, Tylenol, Ibu), standing and repositioning. Interventional pain procedures completed include BL L3-L5 RFA x 3, LESI x2, BL SI x1 Patient is currently on Motrin, Naproxen, Tylenol prn Patient denies any side effects of the medication(s), denies excessive drowsiness or sleepiness, denies suicidal ideation and reports that the current pain medication is helping to control the pain and improve activities of daily living. Patient denies any motor or sensory deficits. Patient denies any fever or night sweats, denies any change in the bowel movements or urination. Physical Examination: -Constitutional: Cooperative. Not in acute distress . - Neurologic: Cranial nerve II to XII intact. No focal neurological deficits. - Psychatric: Alert & oriented x 3. Matching mood & appropriate affect. Judgment and insight intact. - Musculoskeletal: Cervical spine: Muscle bulk/ tone/ strength in the bilateral upper extremities normal Vertebral body tenderness to palpation over Spurling test positive Distraction test positive Facet loading test positive Thoracic spine Muscle bulk / tone/ strength in the bilateral paraspinal muscles normal Vertebral body tender to palpation over Facet loading test positive Lumbar spine: Motor bulk/ tone/ strength lower extremities , thigh and legs : 5/5 Deep tendon reflexes : Normal Knee Jerk. Normal Ankle Jerk . Vertebral body tenderness to palpation over L4 Lumbar Facet Loading Test positive Straight Leg Raise: positive at 30 degrees right side/ left side Gaenslen's Test positive Sacral spine : Severe tenderness over the Sacroiliac joint: right side / left side Range of motion: Flexion of the lumbar spine <60 degrees Range of motion: Extension of the lumbar spine <20 degrees Gaenslen's Test positive Jose test: positive right side / left side Thigh Thrust Test Sacral Thrust Test Assessment and plan: Chronic low back pain secondary to lumbar degenerative disc disease, spondylosis with facet arthropathy without myelopathy Recommendation of CADENCE L4-5. May need a series of injections, up to 3 within a 6 mo period, for optimal pain relief. Risks, benefits of procedure discussed and pt verbalized understanding. Admits to anticoagulant use or medical history of diabetes. Protocol for discontinuation/ continuation of medications harriet procedure discussed. All patient questions answered I have spent less than 30 minutes on patient care today. Dr Bellamy was available by phone for the evaluation of this patient. The time was used to review the medical records including relevant urine studies and Prescription history (MAPs), review of the available imaging, evaluation and examination of the patient, coordination of care with the medical staff and if applicable referring physicians, as well as creation of the medical record PQRS Narrative: Smoking Status Never smoker Hx Alcohol Use (MH) No Home Medications: Ambulatory Orders Atorvastatin Calcium [Lipitor] 20 mg PO HS 02/14/17 Glimepiride [Amaryl] 4 mg PO AC-BRKFST 02/14/17 Insulin NPH Human Isophane [NovoLIN N] 25 unit SQ W/SUPPER 02/14/17 Potassium Chloride [Klor-Con 20] 40 meq PO DAILY 02/14/17 amLODIPine [Norvasc] 10 mg PO DAILY 02/14/17 Insulin Glargine [Lantus Vial] 25 unit SQ W/SUPPER 03/10/21 Levothyroxine Sodium [Synthroid] 75 mcg PO DAILY 03/10/21 Cholecalciferol [Vitamin D3 (25 Mcg = 1000 Iu)] 25 mcg PO DAILY 09/07/22 Citalopram Hydrobromide [CeleXA] 20 mg PO DAILY 09/07/22 Latanoprost [Latanoprost 0.005%] 1 drop BOTH EYES HS 09/07/22 Losartan Potassium 100 mg PO DAILY 09/07/22 Dapagliflozin Propanediol [Farxiga] 10 mg PO DAILY #90 tab 09/11/22 Furosemide [Lasix] 40 mg PO BID #60 tab 09/11/22 Spironolactone [Aldactone] 25 mg PO DAILY #30 tab 09/11/22 hydrALAZINE HCL [Apresoline] 50 mg PO TID #90 tab 09/11/22 Controlled Substance Measures - Controlled Substance Measures Is patient prescribed a controlled substance at discharge?: No
== END | disposition home or self-care (01) ==
LOC: PNWHC3 07:58
PROVIDERS: ATTEND Specialist
DX: M47.896 Other spondylosis, lumbar region (principal); M51.36 Other intervertebral disc degeneration, lumbar region; M46.96 Unspecified inflammatory spondylopathy, lumbar region
CPT/HCPCS: 99211

== ENCOUNTER 2022-11-07 06:52 | Day surgery (SDC) | payer MEDICARE, OTHER ==
[2022-11-02 15:38] VITALS: BMI 32.2
[~2022-11-07 06:52] MED LIST changes: +LIDOCAINE 1% (10MG/ML) FOR IV START INTRADERMA PRN
[2022-11-07 07:26] VITALS: TEMP 97.5
[2022-11-07 07:45] LABS: Glucose,Whole Blood 99 mg/dL (70-110)
[2022-11-07] MEDS ORDERED: methylPREDNISolone ACETATE 40 MG/ML 1 ML VIAL ONE (07:54)
[2022-11-07] MEDS ORDERED: MIDAZOLAM 2 MG/2 ML VIAL ONE (07:54)
[2022-11-07] MEDS ORDERED: fentaNYL (PF) 50 MCG/ML 2 ML AMP ONE (07:54)
[2022-11-07] MEDS ORDERED: IOPAMIDOL M200 10 ML VIAL ONE (07:54)
--- NOTE | 2022-11-07 08:03 | P.PCN ---
Date of Procedure: 11/07/22 Procedure(s) Performed: PREOPERATIVE DIAGNOSIS: 1- Lumbar Degenerative Disc Diseases 2-Lumbar spondylosis with Facet arthropathy without myelopathy. POSTOPERATIVE DIAGNOSIS: Same as preop diagnosis. PROCEDURE 1. Lumbar epidural steroid injection under fluoroscopic guidance at the L4-5 level. (Fluoroscopy imaging was available in radiology department) 2. Lumbar epidurogram. ANESTHESIA: moderate sedation with intravenous Versed 1 mg ,and fentanyle 50 Mcg Sedation start time : 0 756 Sedation end time : 0800 EBL: Minimal PROCEDURE INDICATION: The patient with low back pain and radiculitis symptoms unresponsive to conservative treatment. Fluoroscopy was used to optimize visualization of the needle placement and to maximize safety. PROCEDURE DESCRIPTION / TECHNIQUE: The patient was seen and identified in the preoperative area. Risks, benefits, complications including but not limited to infections ,bleeding ,allergic reaction to the medications ,nerve damage and not complete pain releife , and alternatives were discussed with the patient. The patient agreed to proceed with the procedure and signed the consent. IV was started, and vital signs were stable. Patient was taken to the OR and time out was completed. The patient was placed in the prone position on procedure table and a pillow was placed under the abdomen to reduce lumbar lordosis. The lumbosacral area was prepped and draped in the usual sterile fashion.ere closely monitored during the procedure. Conscious sedation was used during the procedure to decrease patients anxiety. Vital signs was monitered during the entire procedure. Using anterior-posterior fluoroscopy, the L4-5 interlaminar space was identified and the skin over this site was marked and then infiltrated with 1% lidocaine subcutaneously. Subsequently, a 20-gauge Tuohy epidural needle was inserted and advanced toward the epidural space using the ``Loss of resistance technique and guided by AP and lateral fluoroscopy. The correct needle position in the epidural space was verified with the injection of 2 mL of the water soluble contrast dye Isovue 200 contrast and observing an excellent epidurogram with the epidural spread of the dye, after negative aspiration for blood and CSF and in the absence of paresthesias. Again after negative aspiration, a 6 ml mixture containing 40 mg of Depo-medrol ( Preservetive Free ), and 2 ml of preservative free Normal Saline, and 2 ml of preservative free lidocaine 1% solution was injected and a washout of epidurogram was seen. Needle was withdrawn intact, skin was cleansed, and bandages were applied. COMPLICATIONS: None DISPOSITION / PLANS: The patient was placed in a supine position and transferred to the recovery area in a stable condition for observation. There was no evidence of lower extremity motor or sensory deficit after the procedure. Patient was discharged from the recovery room after meeting discharge criteria. Home discharge instructions were given to the patient by the staff. The patient was reexamined prior to discharge. The patient will schedule a follow up in the clinic in 2-4 weeks.
[2022-11-07] MEDS ORDERED: IV FLUID CONTINUATION 1,000 ML IV ONE ×2 (08:06)
--- NOTE | 2022-11-07 08:21 | FL ---
Intraoperative/procedural fluoroscopic services were provided for lumbar epidural injection. Total fl uoroscopy time is 4 seconds with a total of 1 submitted image to PACS. Please see the operative note for further details.
[2022-11-07 08:38] VITALS: BP 158/78; PULSE 52; RESP 18
== END 2022-11-07 08:54 | disposition home or self-care (01) ==
LOC: ORPAIN 06:52
PROVIDERS: ATTEND Specialist
DX: M51.16 Intervertebral disc disorders with radiculopathy, lumbar region (principal); M47.26 Other spondylosis with radiculopathy, lumbar region
CPT/HCPCS: 62323; J2250; J1030; J3010; Q9966

== ENCOUNTER → 2022-11-23 | Outpatient (CLI) | payer MEDICARE, OTHER ==
[2022-11-23 12:50] VITALS: BP 159/74; PULSE 59; RESP 18; TEMP 97.9
--- NOTE | 2022-11-23 14:45 | P.PAINPG ---
Objective - Vital Signs Vital signs: Vital Signs Temp 97.9 F 11/23/22 12:40 Pulse 59 L 11/23/22 12:40 Resp 18 11/23/22 12:40 BP 159/74 11/23/22 12:40 Pulse Ox 97 11/23/22 12:40 FiO2 Intake & Output 11/22/22 11/23/22 11/23/22 18:59 06:59 18:59 Weight 86.183 kg PQRS Measure Charge Sheet Mode of Arrival: Ambulatory Comment: A 72 yr old female with a history of severe and chronic low back pain secondar y to lumbar DDD and spondylosis with facet arthropathy without myelopathy presents today for evaluation s/p CADENCE L4-L5. Pt states she experienced 75 % pain relief x 2 wks s/p procedure. Pain level is provoked at 5 /10 in intensity, constant, localized in the lumbar spine, stabbing in character w shooting towards the buttocks. Pain is provoked by walking/ standing for periods of 10 min or bending. Pain is alleviated with PT x 3 wks in 2019 but limited due to increased pain due to a congential defect, chiropractic treatments years ago, massage three times weekly x 3 wks worsened pain in 2019, heat, topicals, medications (Naproxen), sitting and rest. Interventional pain procedures completed include CADENCE L4-L5, BL RFA L3-L5 (Apr 2022) Patient is currently on naproxen Patient denies any side effects of the medication(s), denies excessive drowsiness or sleepiness, denies suicidal ideation and reports that the current pain medication is helping to control the pain and improve activities of daily living. Patient denies any motor or sensory deficits. Patient denies any fever or night sweats, denies any change in the bowel movements or urination. Physical Examination: -Constitutional: Cooperative. Not in acute distress . - Neurologic: Cranial nerve II to XII intact. No focal neurological deficits. - Psychatric: Alert & oriented x 3. Matching mood & appropriate affect. Judgment and insight intact. - Musculoskeletal: Cervical spine: Muscle bulk/ tone/ strength in the bilateral upper extremities normal Vertebral body tenderness to palpation over Spurling test positive Distraction test positive Facet loading test positive Thoracic spine Muscle bulk / tone/ strength in the bilateral paraspinal muscles normal Vertebral body tender to palpation over Facet loading test positive Lumbar spine: Motor bulk/ tone/ strength lower extremities , thigh and legs : 5/5 Deep tendon reflexes : Normal Knee Jerk. Normal Ankle Jerk . Vertebral body tenderness to palpation over L2, L3 Lumbar Facet Loading Test positive Straight Leg Raise: positive at 30 degrees right side/ left side Gaenslen's Test positive Sacral spine : Severe tenderness over the Sacroiliac joint: right side / left side Range of motion: Flexion of the lumbar spine <60 degrees Range of motion: Extension of the lumbar spine <20 degrees Gaenslen's Test positive Jose test: positive right side / left side Thigh Thrust Test Sacral Thrust Test Assessment and plan: Chronic low back pain secondary to lumbar degenerative disc disease, spondylosis with facet arthropathy without myelopathy Recommendation of CADENCE L2-L3. May need a series, up to 4 within a 12 mo period, for optimal pain relief. Risks, benefits of procedure discussed and pt verbalized understanding. Admits to anticoagulant use or medical history of diabetes. Protocol for discontinuation/ continuation of medications harriet procedure discussed. All patient questions answered I have spent less than 30 minutes on patient care today. Dr Bellamy was available by phone for the evaluation of this patient. The time was used to review the medical records including relevant urine studies and Prescription history (MAPs), review of the available imaging, evaluation and examination of the patient, coordination of care with the medical staff and if applicable referring physicians, as well as creation of the medical record - Pain Location Bilateral Lower Back Non-Pharmacological Interventions: Heat, Ice, Inactivity, Physical Therapy, Sitting Pharmacological Interventions: Block, Epidural, PRN Medication, Topical Medication PQRS Narrative: Smoking Status Never smoker Blood Pressure 159/74 Pain Intensity [Bilateral 5 Lower Back] Scale Used Numeric (1 - 10) Hx Alcohol Use (MH) No Home Medications: Ambulatory Orders Atorvastatin Calcium [Lipitor] 20 mg PO HS 02/14/17 Glimepiride [Amaryl] 4 mg PO AC-BRKFST 02/14/17 Insulin NPH Human Isophane [NovoLIN N] 25 unit SQ W/SUPPER 02/14/17 Potassium Chloride [Klor-Con 20] 20 meq PO DAILY 02/14/17 amLODIPine [Norvasc] 10 mg PO DAILY 02/14/17 Insulin Glargine [Lantus Vial] 25 unit SQ W/SUPPER 03/10/21 Levothyroxine Sodium [Synthroid] 75 mcg PO DAILY 03/10/21 Cholecalciferol [Vitamin D3 (25 Mcg = 1000 Iu)] 25 mcg PO DAILY 09/07/22 Citalopram Hydrobromide [CeleXA] 20 mg PO DAILY 09/07/22 Latanoprost [Latanoprost 0.005%] 1 drop BOTH EYES HS 09/07/22 Losartan Potassium 100 mg PO DAILY 09/07/22 Spironolactone [Aldactone] 25 mg PO DAILY #30 tab 09/11/22 hydrALAZINE HCL [Apresoline] 50 mg PO TID #90 tab 09/11/22 Furosemide [Lasix] 40 mg PO DAILY 11/02/22 Naproxen [Naprosyn] 500 mg PO Q12H 11/02/22 Controlled Substance Measures - Controlled Substance Measures Is patient prescribed a controlled substance at discharge?: No
== END ==
LOC: PNWHC3 12:26
PROVIDERS: ATTEND Specialist
DX: M47.816 Spondylosis without myelopathy or radiculopathy, lumbar region (principal); M51.36 Other intervertebral disc degeneration, lumbar region; E11.9 Type 2 diabetes mellitus without complications; Z79.4 Long term (current) use of insulin; Z79.84 Long term (current) use of oral hypoglycemic drugs
CPT/HCPCS: 99211

== ENCOUNTER → 2023-02-08 | Outpatient (CLI) | payer MEDICARE, OTHER ==
[2023-02-08 12:49] VITALS: BP 137/95; PULSE 77; RESP 18; TEMP 98
--- NOTE | 2023-02-08 14:45 | P.PAINPG ---
PQRS Measure Charge Sheet Comment: A 72 yr old female with a history of severe and chronic LBP x 7 yrs secondary to lumbar DDD and spondylosis with facet arthropathy without myelopathy presents today for evaluation s/p CADENCE L2-L3 #1. Pt states she experienced 80% pain relief x 4 wks s/p procedure. Pain level is provoked at 4 /10 in intensity, constant, localized in the lumbar spine, dull in character w/o shooting pain. Pain is provoked by walking for periods of 20 min or more. Pain is alleviated with medications, topical, injections, heat, PT integrated w massage 7 yrs ago, repositioning and rest. Interventional pain procedures completed include BL RFA L3-L5 (April 2022), CADENCE L2-L3 x1, L4-L5 x2 Patient is currently on Tyl Patient denies any side effects of the medication(s), denies excessive drowsiness or sleepiness, denies suicidal ideation and reports that the current pain medication is helping to control the pain and improve activities of daily living. Patient denies any motor or sensory deficits. Patient denies any fever or night sweats, denies any change in the bowel movements or urination. Physical Examination: -Constitutional: Cooperative. Not in acute distress . - Neurologic: Cranial nerve II to XII intact. No focal neurological deficits. - Psychatric: Alert & oriented x 3. Matching mood & appropriate affect. J udgment and insight intact. - Musculoskeletal: Cervical spine: Muscle bulk/ tone/ strength in the bilateral upper extremities normal Vertebral body tenderness to palpation over Spurling test positive Distraction test positive Facet loading test positive TTP Thoracic spine Muscle bulk / tone/ strength in the bilateral paraspinal muscles normal Vertebral body tender to palpation over Facet loading test positive TTP Lumbar spine: Motor bulk/ tone/ strength lower extremities , thigh and legs : 5/5 Deep tendon reflexes : Normal Knee Jerk. Normal Ankle Jerk . Vertebral body tenderness to palpation over Lumbar Facet Loading Test positive Straight Leg Raise: positive at 30 degrees right side/ left side Gaenslen's Test positive Sacral spine : Severe tenderness over the Sacroiliac joint: right side / left side Range of motion: Flexion of the lumbar spine <60 degrees Range of motion: Extension of the lumbar spine <20 degrees Gaenslen's Test positive right side / left side Jose test: positive right side / left side Thigh Thrust Test positive right side / left side Sacral Thrust Test positive right side / left side Assessment and plan: Chronic LBP secondary to lumbar DDD, spondylosis with facet arthropathy without myelopathy Pt will manage residual pain at home and may return to the clinic on an as needed basis. All questions answered. I have spent less than 30 minutes on patient care today. Dr Bellamy was availa ble by phone for the evaluation of this patient. The time was used to review the medical records including relevant urine studies and Prescription history (MAPs), review of the available imaging, evaluation and examination of the patient, coordination of care with the medical staff and if applicable referring physicians, as well as creation of the medical record PQRS Narrative: Smoking Status Never smoker Hx Alcohol Use (MH) No Home Medications: Ambulatory Orders Atorvastatin Calcium [Lipitor] 20 mg PO HS 02/14/17 Glimepiride [Amaryl] 4 mg PO AC-BRKFST 02/14/17 Insulin NPH Human Isophane [NovoLIN N] 20 unit SQ BID-W/MEALS 02/14/17 Potassium Chloride [Klor-Con 20] 20 meq PO DAILY 02/14/17 amLODIPine [Norvasc] 10 mg PO DAILY 02/14/17 Insulin Glargine [Lantus Vial] 25 unit SQ QAM 03/10/21 Levothyroxine Sodium [Synthroid] 75 mcg PO DAILY 03/10/21 Cholecalciferol [Vitamin D3 (25 Mcg = 1000 Iu)] 25 mcg PO DAILY 09/07/22 Citalopram Hydrobromide [CeleXA] 20 mg PO DAILY 09/07/22 Latanoprost [Latanoprost 0.005%] 1 drop BOTH EYES HS 09/07/22 Losartan Potassium 100 mg PO DAILY 09/07/22 Spironolactone [Aldactone] 25 mg PO DAILY #30 tab 09/11/22 hydrALAZINE HCL [Apresoline] 50 mg PO TID #90 tab 09/11/22 Furosemide [Lasix] 40 mg PO DAILY 11/02/22 Controlled Substance Measures - Controlled Substance Measures Is patient prescribed a controlled substance at discharge?: No
== END ==
LOC: PNWHC3 12:27
PROVIDERS: ATTEND Specialist
DX: M51.36 Other intervertebral disc degeneration, lumbar region (principal); M47.816 Spondylosis without myelopathy or radiculopathy, lumbar region; G89.29 Other chronic pain
CPT/HCPCS: 99211

== ENCOUNTER 2023-05-22 09:20 | Emergency (ER) | payer MEDICARE, OTHER ==
[2023-05-22] MEDS ORDERED: MORPHINE SULFATE 4 MG/ML SYRINGE IM STA (10:09)
--- NOTE | 2023-05-22 10:19 | ED ---
General Adult HPI - General Chief complaint: Back Pain/Injury Stated complaint: back pain Time Seen by Provider: 05/22/23 09:47 Source: patient Mode of arrival: wheelchair Limitations: no limitations - History of Present Illness Initial comments: Dictation was produced using [employer] dictation software. please excuse any grammatical, word or spelling errors. Chief Complaint: 73-year-old female with chronic pain presents to the ER for left-sided back pain History of Present Illness: Patient 73-year-old female chronic back pain. She sees [facility] specialist. Patient states that she has left back pain. Swirsky movement and palpation. Denies any fever. No trauma. No numbness and paresthesias to the lower extremities. No saddle anesthesia. No fever The ROS documented in this emergency department record has been reviewed and confirmed by me. Those systems with pertinent positive or negative responses have been documented in the HPI. All other systems are other negative and/or noncontributory. - Related Data Home Medications Medication Instructions Recorded Confirmed Atorvastatin Calcium [Lipitor] 20 mg PO HS 02/14/17 01/04/23 Glimepiride [Amaryl] 4 mg PO AC-BRKFST 02/14/17 01/09/23 Insulin NPH Human Isophane 20 unit SQ BID-W/MEALS 02/14/17 01/09/23 [NovoLIN N] Potassium Chloride [Klor-Con 20] 20 meq PO DAILY 02/14/17 01/04/23 amLODIPine [Norvasc] 10 mg PO DAILY 02/14/17 01/04/23 Insulin Glargine [Lantus Vial] 25 unit SQ QAM 03/10/21 01/09/23 Levothyroxine Sodium [Synthroid] 75 mcg PO DAILY 03/10/21 01/04/23 Cholecalciferol [Vitamin D3 (25 25 mcg PO DAILY 09/07/22 01/04/23 Mcg = 1000 Iu)] Citalopram Hydrobromide [CeleXA] 20 mg PO DAILY 09/07/22 01/04/23 Latanoprost [Latanoprost 0.005%] 1 drop BOTH EYES HS 09/07/22 01/04/23 Losartan Potassium 100 mg PO DAILY 09/07/22 01/04/23 Furosemide [Lasix] 40 mg PO DAILY 11/02/22 01/04/23 Previous Rx's Medication Instructions Recorded Spironolactone [Aldactone] 25 mg PO DAILY #30 tab 09/11/22 hydrALAZINE HCL [Apresoline] 50 mg PO TID #90 tab 09/11/22 Allergies Allergy/AdvReac Type Severity Reaction Status Date / Time No Known Allergies Allergy Verified 05/22/23 09:40 Review of Systems ROS Statement: Those systems with pertinent positive or pertinent negative responses have been documented in the HPI. ROS Other: All systems not noted in ROS Statement are negative. Past Medical History Past Medical History: Heart Failure, Diabetes Mellitus, Hypertension, Musculoskeletal Disorder, Osteoarthritis (OA), Thyroid Disorder Additional Past Medical History / Comment(s): "Resting heart rate has been in 40's @times when comes in for procedures.",chronic back pain,Covid infection March 2022 History of Any Multi-Drug Resistant Organisms: None Reported Past Surgical History: Section, Cholecystectomy, Hysterectomy, Tonsillectomy Additional Past Surgical History / Comment(s): COLONOSCOPY, pain procedures, CYST REMOVED FROM NECK AREA. Past Anesthesia/Blood Transfusion Reactions: No Reported Reaction Past Psychological History: No Psychological Hx Reported Smoking Status: Never smoker Past Alcohol Use History: Rare Past Drug Use History: None Reported - Past Family History Mother Family Medical History: Cancer, Hypertension Father Family Medical History: Congestive Heart Failure (CHF) General Exam - General Exam Comments Initial Comments: PHYSICAL EXAM: General Impression: Alert and oriented x3, not in acute distress HEENT: Normocephalic atraumatic, extra-ocular movements intact, pupils equal and reactive to light bilaterally, mucous membranes moist. Cardiovascular: Heart regular rate and rhythm Chest: Able to complete full sentences, no retractions, no tachypnea Abdomen: abdomen soft, non-tender, non-distended, no organomegaly Musculoskeletal: Pulses present and equal in all extremities, no peripheral edema, palpatory tenderness to the left lateral soft tissues of the mid back Motor: no focal deficits noted Neurological: CN II-XII grossly intact, no focal motor or sensory deficits noted Skin: Intact with no visualized rashes Psych: Normal affect and mood Limitations: no limitations Course Vital Signs 05/22/23 05/22/23 09:40 12:22 Temperature 97.7 F 98.1 F Pulse Rate 67 70 Respiratory 18 16 Rate Blood Pressure 152/68 157/68 O2 Sat by Pulse 97 97 Oximetry Medical Decision Making - Medical Decision Making Was pt. sent in by a medical professional or institution ([facility], [facility], urgent care, hospital, or retirement...) When possible be specific @ -No Did you speak to anyone other than the patient for history (EMS, parent, family, police, friend...)? What history was obtained from this source @ -No Did you review nursing and triage notes (agree or disagree)? Why? @ -I reviewed and agree with nursing and triage notes Were old charts reviewed (outside hosp., previous admission, EMS record, old EKG, old radiological studies, urgent care reports/EKG's, retirement records)? Report findings @ -Pain consultation note reviewed from January of this year shows the patient has history of chronic back pain Differential Diagnosis (chest pain, altered mental status, abdominal pain women, abdominal pain men, vaginal bleeding, musculoskeletal, weakness, fever, dyspnea, syncope, headache, dizziness, GI bleed, back pain, seizure, CVA, palpatations, mental health)? @ -Differential Back Pain: Strain, zoster, cauda equina syndrome, epidural abscess, vertebral osteomyelitis, discitis, fracture, subluxation, disc herniation, DJD, spinal stenosis, dissection, AAA, pancreatitis, peptic ulcer disease, pyelonephritis, kidney stone, this is not meant to be an all-inclusive list. EKG interpreted by me (3pts min.). @ -None done X-rays interpreted by me (1pt min.). @ -None done CT interpreted by me (1pt min.). @ -None done U/S interpreted by me (1pt. min.). @ -None done What testing was considered but not performed or refused? (CT, X-rays, U/S, labs)? Why? @ -None What meds were considered but not given or refused? Why? @ -None Did you discuss the management of the patient with other professionals (professionals i.e. [facility], [facility]CHER, lab, RT, psych nurse, social service liaison, accounting professor, teacher, mortgage loan officer, onsite case manager)? Give summary @ -No Was smoking cessation discussed for >3mins.? @ -No Was critical care preformed (if so, how long)? @ -No Were there social determinants of health that impacted care today? How? (Homelessness, low income, unemployed, alcoholism, drug addiction, transportation, low edu. Level, literacy, decrease access to med. care, fci, rehab)? @ -No Was there de-escalation of care discussed even if they declined (Discuss DNR or withdrawal of care, Hospice)? DNR status @ -No What co-morbidities impacted this encounter? (DM, HTN, Smoking, COPD, CAD, Cancer, CVA, ARF, Chemo, Hep., AIDS, mental health diagnosis, sleep apnea, morbid obesity)? @ -None Was patient admitted / discharged? Hospital course, mention meds given and rout e, prescriptions, significant lab abnormalities, going to OR and other pertinent info. @ -73-year-old female with past medical history of chronic back pain presents to the ER for atraumatic back pain. Vital signs upon arrival are within acceptable limits. Patient has no constitutional symptoms. She is reproducible pain with palpation to the left musculoskeletal tissues of the back. Patient given analgesics observed in emergency department. Patient feels better upon reevaluation at 1:07 PM. Patient is agreeable with discharge. Undiagnosed new problem with uncertain prognosis? @ -No Drug Therapy requiring intensive monitoring for toxicity (Heparin, Nitro, Insulin, Cardizem)? @ -No Were any procedures done? @ -No Diagnosis/symptom? Acute, or Chronic, or Acute on Chronic? Uncomplicated (without systemic symptoms) or Complicated (systemic symptoms)? @ -1. Atraumatic back strain Side effects of treatment? @ -No Exacerbation, Progression, or Severe Exacerbation? @ -No Poses a threat to life or bodily function? How? (Chest pain, [place], [place], pneumonia, PE, COPD, DKA, ARF, appy, cholecystitis, CVA, Diverticulitis, Homicidal, Suicidal, threat to staff... and all critical care pts) @ -No Disposition Clinical Impression: Back strain Disposition: HOME SELF-CARE Condition: Good Instructions (If sedation given, give patient instructions): Acute Low Back Pain (ED) Is patient prescribed a controlled substance at d/c from ED?: No Referrals: Josh Ivory MD [Primary Care Provider] - 1-2 days Time of Disposition: 13:07
[2023-05-22 12:24] VITALS: RESP 16; TEMP 98.1
[2023-05-22] MEDS ORDERED: ACET/COD 300 MG/30 MG STARTER PACK 6 TAB BTL PO STA (13:05)
[2023-05-22 13:17] VITALS: BP 147/89; PULSE 71
== END 2023-05-22 13:17 | disposition home or self-care (01) ==
LOC: EC 09:20
DX: S39.012A Strain of muscle, fascia and tendon of lower back, initial encounter (principal); I11.0 Hypertensive heart disease with heart failure; I50.9 Heart failure, unspecified; M19.90 Unspecified osteoarthritis, unspecified site; E11.9 Type 2 diabetes mellitus without complications; E07.9 Disorder of thyroid, unspecified; Z79.4 Long term (current) use of insulin; Z79.84 Long term (current) use of oral hypoglycemic drugs; Z79.890 Hormone replacement therapy; Z79.899 Other long term (current) drug therapy; Z86.16 Personal history of COVID-19; Z90.49 Acquired absence of other specified parts of digestive tract; X58.XXXA Exposure to other specified factors, initial encounter
CPT/HCPCS: 99283; 96372; J2270

== ENCOUNTER → 2023-05-24 | Outpatient (CLI) | payer MEDICARE, OTHER ==
[2023-05-24 10:46] VITALS: BP 147/61; PULSE 64; RESP 18; TEMP 98.8
--- NOTE | 2023-05-24 14:34 | P.PAINPG ---
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 Pain level is provoked at 4 /10 in intensity, constant, localized in the lumbar spine, stabbing in character w radiation towards L side. Pain is provoked by walking for periods of 20 min or more. Pain is alleviated with medications, topical, injections, PT integrated w massage 3 yrs ago which provoked immense pain and was discontinued, repositioning and rest. Oswestry pain score of 31. Interventional pain procedures completed include BL RFA L3-L5 (April 2022), CADENCE L2-L3 x1, L4-L5 x2 Patient is currently on Tyl Arthritis Patient denies any side effects of the medication(s), denies excessive drowsiness or sleepiness, denies suicidal ideation and reports that the current pain medication is helping to control the pain and improve activities of daily living. Patient denies any motor or sensory deficits. Patient denies any fever or night sweats, denies any change in the bowel movements or urination. Physical Examination: -Constitutional: Cooperative. Not in acute distress . - Neurologic: Cranial nerve II to XII intact. No focal neurological deficits. - Psychatric: Alert & oriented x 3. Matching mood & appropriate affect. Judgment and insight intact. - Musculoskeletal: Cervical spine: Muscle bulk/ tone/ strength in the bilateral upper extremities normal Vertebral body tenderness to palpation over Spurling test positive Distraction test positive Facet loading test positive TTP Thoracic spine Muscle bulk / tone/ strength in the bilateral paraspinal muscles normal Vertebral body tender to palpation over Facet loading test positive TTP Lumbar spine: Motor bulk/ tone/ strength lower extremities , thigh and legs : 5/5 Deep tendon reflexes : Normal Knee Jerk. Normal Ankle Jerk . Vertebral body tenderness to palpation over L3 Denson test positive Lumbar Facet Loading Test positive Straight Leg Raise: positive at 30 degrees right side/ left side Gaenslen's Test positive Sacral spine : Severe tenderness over the Sacroiliac joint: right side / left side Range of motion: Flexion of the lumbar spine <60 degrees Range of motion: Extension of the lumbar spine <20 degrees Gaenslen's Test positive right side / left side Jose test: positive right side / left side Thigh Thrust Test positive right side / left side Sacral Thrust Test positive right side / left side Assessment and plan: Chronic LBP secondary to lumbar DDD, spondylosis with facet arthropathy without myelopathy Recommendation of CADENCE L2-L3. May need a series of injections for optimal pain relief. Risks, benefits of procedure discussed and pt verbalized understanding. Protocol for discontinuation/ continuation of medications harriet procedure discussed. [place] 5/325mg #18 NR Use, side effects, adverse reactions and safe storage discussed. All questions answered. I have spent less than 30 minutes on patient care today. Dr Bellamy was available by phone for the evaluation of this patient. The time was used to review the medical records including relevant urine studies and Prescription history (MAPs), review of the available imaging, evaluation and examination of the patient, coordination of care with the medical staff and if applicable referring physicians, as well as creation of the medical record PQRS Narrative: Smoking Status Never smoker Hx Alcohol Use (MH) No Home Medications: Ambulatory Orders Atorvastatin Calcium [Lipitor] 20 mg PO HS 02/14/17 Glimepiride [Amaryl] 4 mg PO AC-BRKFST 02/14/17 Insulin NPH Human Isophane [NovoLIN N] 20 unit SQ BID-W/MEALS 02/14/17 Potassium Chloride [Klor-Con 20] 20 meq PO DAILY 02/14/17 amLODIPine [Norvasc] 10 mg PO DAILY 02/14/17 Insulin Glargine [Lantus Vial] 25 unit SQ QAM 03/10/21 Levothyroxine Sodium [Synthroid] 75 mcg PO DAILY 03/10/21 Cholecalciferol [Vitamin D3 (25 Mcg = 1000 Iu)] 25 mcg PO DAILY 09/07/22 Citalopram Hydrobromide [CeleXA] 20 mg PO DAILY 09/07/22 Latanoprost [Latanoprost 0.005%] 1 drop BOTH EYES HS 09/07/22 Losartan Potassium 100 mg PO DAILY 09/07/22 Spironolactone [Aldactone] 25 mg PO DAILY #30 tab 09/11/22 hydrALAZINE HCL [Apresoline] 50 mg PO TID #90 tab 09/11/22 Furosemide [Lasix] 40 mg PO DAILY 11/02/22 HYDROcodone/APAP 5-325MG [[place] 5-325] 1 tab PO Q4HR PRN 3 Days #18 tab 05/24/23 Controlled Substance Measures - Controlled Substance Measures Is patient prescribed a controlled substance at discharge?: Yes When asked, does pt state using other controlled substances?: No If prescribed controlled substance>3 days was MAPS reviewed?: Prescribed <3 Days If Rx opioid, was Start Talking consent form obtained?: Yes If opioid is for acute pain is fill amount 7 days or less?: Yes Was information provided regarding opioid addiction?: Yes
== END ==
LOC: PNWHC3 09:47
PROVIDERS: ATTEND Specialist
DX: M51.36 Other intervertebral disc degeneration, lumbar region (principal); M47.816 Spondylosis without myelopathy or radiculopathy, lumbar region; G89.29 Other chronic pain
CPT/HCPCS: 99211

== ENCOUNTER 2023-06-05 06:07 | Day surgery (SDC) | payer MEDICARE, OTHER ==
[2023-05-31 15:55] VITALS: BMI 35.6
[~2023-06-05 06:07] MED LIST changes: -LIDOCAINE 1% (10MG/ML) FOR IV START INTRADERMA PRN
[2023-06-05 06:34] VITALS: TEMP 97.6
[2023-06-05 06:34] LABS: Glucose,Whole Blood 124 mg/dL (70-110)
[2023-06-05] MEDS ORDERED: IOPAMIDOL M200 10 ML VIAL ONE (07:03)
[2023-06-05] MEDS ORDERED: methylPREDNISolone ACETATE 40 MG/ML 1 ML VIAL ONE (07:03)
--- NOTE | 2023-06-05 07:10 | P.PCN ---
Date of Procedure: 06/05/23 Procedure(s) Performed: PREOPERATIVE DIAGNOSIS: 1- Lumbar Degenerative Disc Diseases 2-Lumbar spondylosis with Facet arthropathy without myelopathy. 3-lumbar spinal stenosis POSTOPERATIVE DIAGNOSIS: 1-lumbar degenerative disc disease. 2-lumbar spondylosis with facet arthropathy without myelopathy. 3-lumbar spinal stenosis. PROCEDURE 1. Lumbar epidural steroid injection under fluoroscopic guidance at the L2-3 level. (Fluoroscopy imaging was available in radiology department) 2. Lumbar epidurogram. ANESTHESIA: Lidocaine 1% 3 and then only. EBL: Minimal PROCEDURE INDICATION: The patient with low back pain and radiculitis symptoms unresponsive to conservative treatment. Fluoroscopy was used to optimize visualization of the needle placement and to maximize safety. PROCEDURE DESCRIPTION / TECHNIQUE: The patient was seen and identified in the preoperative area. Risks, benefits, complications including but not limited to infections ,bleeding ,allergic reaction to the medications ,nerve damage and not complete pain releife , and alternatives were discussed with the patient. The patient agreed to proceed with the procedure and signed the consent, and vital signs were stable. Patient was taken to the OR and time out was completed. The patient was placed in the prone position on procedure table and a pillow was placed under the abdomen to reduce lumbar lordosis. The lumbosacral area was prepped and draped in the usual sterile fashion.ere closely monitored during the procedure. Vital signs was monitered during the entire procedure. Using anterior-posterior fluoroscopy, the L2-3 interlaminar space was identified and the skin over this site was marked and then infiltrated with 1% lidocaine subcutaneously. Subsequently, a 20-gauge Tuohy epidural needle was inserted and advanced toward the epidural space using the ``Loss of resistance technique and guided by AP and lateral fluoroscopy. The correct needle position in the epidural space was verified with the injection of 2 mL of the water soluble contrast dye Isovue 200 contrast and observing an excellent epidurogram with the epidural spread of the dye, after negative aspiration for blood and CSF and in the absence of paresthesias. Again after negative aspiration, a 6 ml mixture containing 40 mg of Depo-medrol ( Preservetive Free ), and 2 ml of preservative free Normal Saline, and 2 ml of preservative free lidocaine 1% solution was injected and a washout of epidurogram was seen. Needle was withdrawn intact, skin was cleansed, and bandages were applied. COMPLICATIONS: None DISPOSITION / PLANS: The patient was placed in a supine position and transferred to the recovery area in a stable condition for observation. There was no evidence of lower extremity motor or sensory deficit after the procedure. Patient was discharged from the recovery room after meeting discharge criteria. Home discharge instructions were given to the patient by the staff. The patient was reexamined prior to discharge. The patient will schedule a follow up in the clinic in 2-4 weeks.
--- NOTE | 2023-06-05 07:19 | FL ---
Intraoperative/procedural fluoroscopic services were provided for lumbar epidural injection. Total fl uoroscopy time is 3.2 seconds with a total of 1 submitted image to PACS. Total DAP [id number] ease see the operative note for further details.
[2023-06-05 07:29] VITALS: BP 159/67; PULSE 55; RESP 14
== END 2023-06-05 07:36 | disposition home or self-care (01) ==
LOC: ORPAIN 06:07
PROVIDERS: ATTEND Specialist
DX: M51.16 Intervertebral disc disorders with radiculopathy, lumbar region (principal); M47.26 Other spondylosis with radiculopathy, lumbar region; M48.061 Spinal stenosis, lumbar region without neurogenic claudication
CPT/HCPCS: 62323; J1030; Q9966

== ENCOUNTER 2023-06-22 06:41 | Emergency (ER) | payer MEDICARE, OTHER ==
[2023-06-22 06:51] VITALS: RESP 18; TEMP 98.1
[2023-06-22] MEDS ORDERED: MORPHINE SULFATE 4 MG/ML SYRINGE IM STA (07:02)
[2023-06-22] MEDS ORDERED: KETOROLAC 15 MG/ML 1 ML VIAL IM STA (07:02)
[2023-06-22] MEDS ORDERED: ONDANSETRON ODT 4 MG TAB PO STA (07:07)
--- NOTE | 2023-06-22 07:08 | ED ---
Fall HPI - General Chief Complaint: Fall Stated Complaint: Fall Time Seen by Provider: 06/22/23 06:59 Source: patient, RN notes reviewed Mode of arrival: ambulatory Limitations: no limitations - History of Present Illness Initial Comments: This is a 73-year-old female who presents to the emergency department for a fall. States that 3 days ago, she was trying to get up from using the bathroom, when her cat tripped her. She fell backwards onto a hutch behind the toilet. Denies hitting her head or sustaining any loss of consciousness. Not taking any blood thinners. States that the majority of her pain is now in the right hip and going down the leg. She is taking Tylenol arthritis without any improvement in symptoms. She is still able to walk, but states that the pain is making it difficult. She is also going out of town today for a wedding and is worried about being able to manage her symptoms until then. Additionally, states that she is diabetic and that the pain is making her nauseous. She has since been unable to eat, which concerns her with regards to the diabetes. Denies any fevers, chills, sore throat, cough, dyspnea, chest pain, palpitations, abdominal pain, vomiting, diarrhea, back pain, or headaches. MD Complaint: fall - Related Data Home Medications Medication Instructions Recorded Confirmed Atorvastatin Calcium [Lipitor] 20 mg PO HS 02/14/17 05/31/23 Glimepiride [Amaryl] 4 mg PO AC-BRKFST 02/14/17 05/31/23 Insulin NPH Human Isophane 20 unit SQ BID-W/MEALS 02/14/17 05/31/23 [NovoLIN N] amLODIPine [Norvasc] 10 mg PO DAILY 02/14/17 05/31/23 Insulin Glargine [Lantus Vial] 25 unit SQ HS 03/10/21 06/05/23 Levothyroxine Sodium [Synthroid] 75 mcg PO DAILY 03/10/21 05/31/23 Cholecalciferol [Vitamin D3 (25 25 mcg PO DAILY 09/07/22 05/31/23 Mcg = 1000 Iu)] Citalopram Hydrobromide [CeleXA] 20 mg PO DAILY 09/07/22 05/31/23 Latanoprost [Latanoprost 0.005%] 1 drop BOTH EYES HS 09/07/22 05/31/23 Losartan Potassium 100 mg PO DAILY 09/07/22 05/31/23 Furosemide [Lasix] 40 mg PO DAILY 11/02/22 05/31/23 Acetaminophen [Tylenol Arthritis] 650 mg PO DIRECTED PRN 05/31/23 06/05/23 hydrALAZINE HCL [Apresoline] 100 mg PO TID 05/31/23 05/31/23 Previous Rx's Medication Instructions Recorded Spironolactone [Aldactone] 25 mg PO DAILY #30 tab 09/11/22 Ketorolac [Toradol] 10 mg PO Q6HR PRN #15 tab 06/22/23 Allergies Allergy/AdvReac Type Severity Reaction Status Date / Time No Known Allergies Allergy Verified 06/22/23 06:47 Review of Systems ROS Statement: Those systems with pertinent positive or pertinent negative responses have been documented in the HPI. ROS Other: All systems not noted in ROS Statement are negative. Past Medical History Past Medical History: Heart Failure, Diabetes Mellitus, Hypertension, Musculoskeletal Disorder, Osteoarthritis (OA), Thyroid Disorder Additional Past Medical History / Comment(s): "Resting heart rate in 40's @times.,chronic back pain,Covid infection March 2022, states elevated potassium (following with Dr Johnson). History of Any Multi-Drug Resistant Organisms: None Reported Past Surgical History: Section, Cholecystectomy, Hysterectomy, Tonsillectomy Additional Past Surgical History / Comment(s): COLONOSCOPY, pain procedures, CYST REMOVED FROM NECK AREA. Past Anesthesia/Blood Transfusion Reactions: No Reported Reaction Past Psychological History: No Psychological Hx Reported Smoking Status: Never smoker Past Alcohol Use History: Rare Past Drug Use History: None Reported - Past Family History Mother Family Medical History: Cancer, Hypertension Father Family Medical History: Congestive Heart Failure (CHF) General Exam Limitations: no limitations General appearance: alert, in no apparent distress Head exam: Present: atraumatic, normocephalic, normal inspection Respiratory exam: Present: normal lung sounds bilaterally. Absent: respiratory distress, wheezes, rales, rhonchi, stridor Cardiovascular Exam: Present: regular rate, normal rhythm, normal heart sounds. Absent: systolic murmur, diastolic murmur, rubs, gallop, clicks Extremities exam: Present: other (Tenderness to palpation over the right greater trochanter and lateral aspect of the right femur. No ecchymosis or defor mities. 2+ DP and PT pulses.) Neurological exam: Present: alert, oriented X3, CN II-XII intact Psychiatric exam: Present: normal affect, normal mood Skin exam: Present: warm, dry, intact, normal color. Absent: rash Course Vital Signs 06/22/23 06/22/23 06:47 09:06 Temperature 98.1 F Pulse Rate 84 81 Respiratory 18 18 Rate Blood Pressure 127/58 152/80 O2 Sat by Pulse 98 98 Oximetry Medical Decision Making - Medical Decision Making This is a 73-year-old female who presents to the emergency department for right leg pain after a fall. Was pt. sent in by a medical professional or institution? @ -No Did you speak to anyone other than the patient for history? @ -No Did you review nursing and triage notes? @ -Yes, and I agree, it is accurate with regards to the patient's symptoms. Were old charts reviewed? @ -No Differential Diagnosis? @ -Differential Leg Pain/Injury: Leg fracture, leg sprain, DVT, PVD, arterial insufficiency, iliac artery aneurysm, cellulitis, compartment syndrome, tendinopathy, nerve entrapment, piriformis syndrome, osteoarthritis, rhabdomyolysis, myositis, cramping from an electrolyte imbalance, this is not meant to be an all inclusive list. EKG interpreted by me (3pts min.)? @ -Not obtained X-rays interpreted by me (1pt min.)? @ -X-ray of the right hip, right femur, and right tib-fib obtained. My interpretation of all images identifies no acute fractures or dislocations. CT interpreted by me (1pt min.)? @ -Not obtained U/S interpreted by me (1pt. min.)? @ -Duplex US of the right lower extremity obtained. My interpretation identifies no evidence of a DVT. What testing was considered but not performed? (CT, X-rays, U/S, labs)? Why? @ -None What meds were considered but not given? Why? @ -None Did you discuss the management of the patient with other professionals? @ -No Did you reconcile home meds? @ -No Was smoking cessation discussed for >3mins.? @ -No Was critical care preformed (if so, how long)? @ -No Were there social determinants of health that impacted care today? How? (Homelessness, low income, unemployed, alcoholism, drug addiction, transportation, low edu. Level, literacy, decrease access to med. care, long-term, rehab)? @ -No Was there de-escalation of care discussed even if they declined? (Discuss DNR or withdrawal of care, Hospice)? @ -No What co-morbidities impacted this encounter? (DM, HTN, Smoking, COPD, CAD, Cancer, CVA, Hep., AIDS, mental health diagnosis, sleep apnea, morbid obesity)? @ -Osteoarthritis, DM Was patient admitted / discharged? @ -Discharged. X-rays of the right hip, femur, and tib-fib obtained revealing no acute process. Duplex ultrasound of the right lower extremity obtained as well, revealing no evidence of a DVT. Advised the patient that her symptoms are likely related to a sprain or contusion. Her pain was well controlled in the emergency department. Prescription for Toradol provided with dosing instructions reviewed. Patient is instructed to take the Toradol with Tylenol if needed and avoid any other [id number] anti-inflammatories such as ibuprofen with the Toradol. She was also sent home with a starter pack for Tylenol #3. Otherwise advised close follow-up with her primary care provider. Undiagnosed new problem with uncertain prognosis? @ -None Drug Therapy requiring intensive monitoring for toxicity (Heparin, Nitro, Insulin, Cardizem)? @ -None Were any procedures done? @ -None Diagnosis/symptom? @ -Right leg pain, fall Acute, or Chronic, or Acute on Chronic? @ -Acute Uncomplicated (without systemic symptoms) or Complicated (systemic symptoms)? @ -Uncomplicated Side effects of treatment? @ -None Exacerbation, Progression, or Severe Exacerbation] @ -Not applicable Poses a threat to life or bodily function? @ -No Return precautions reviewed in depth, the patient is instructed to return to the emergency department with any new, worsening, or concerning symptoms. Patient verbalized understanding. This case was discussed in detail with the attending ED physician, Dr. Toth. Presentation, findings, and treatment plan discussed in detail as well. - Radiology Data Radiology results: report reviewed, image reviewed Disposition Clinical Impression: Fall, Right leg pain Disposition: HOME SELF-CARE Instructions (If sedation given, give patient instructions): Fall Prevention for Older Adults (ED), Leg Pain (ED) Additional Instructions: Return to the emergency department with any new, worsening, or concerning symptoms. You can take the Toradol with Tylenol as needed for pain relief. Do not take any other anti-inflammatories such as ibuprofen with the Toradol. Take one or the other. You can take the Zofran up to every 8 hours as needed for nausea and vomiting. Follow up with your primary care provider in 1-2 days. Prescriptions: Ketorolac [Toradol] 10 mg PO Q6HR PRN #15 tab PRN Reason: Pain Is patient prescribed a controlled substance at d/c from ED?: No Referrals: Josh Ivory MD [Primary Care Provider] - 1-2 days
--- NOTE | 2023-06-22 07:33 | XR ---
EXAMINATION TYPE: XR tibia fibula RT DATE OF EXAM: 06/22/2023 CLINICAL HISTORY: pain TECHNIQUE: AP and lateral images of the right tibia and fibula are obtained. COMPARISON: None. FINDINGS: There is no acute fracture/dislocation evident. The joint spaces appear within normal pearson its. The overlying soft tissue appears unremarkable. IMPRESSION: There is no acute fracture or dislocation seen. ICD 10 NO FRACTURE, INITIAL EVALUATION
--- NOTE | 2023-06-22 07:34 | XR ---
EXAMINATION TYPE: XR femur RT DATE OF EXAM: 06/22/2023 CLINICAL HISTORY: pain TECHNIQUE: AP and frogleg views of the right hip are obtained. COMPARISON: None. FINDINGS: There is no acute fracture/dislocation evident. The joint space appears within normal li mits. The overlying soft tissue appears unremarkable. IMPRESSION: 1. There is no acute fracture or dislocation. ICD 10 NO FRACTURE, INITIAL EVALUATION
--- NOTE | 2023-06-22 07:36 | XR ---
EXAMINATION TYPE: XR Hip Complete RT DATE OF EXAM: 06/22/2023 CLINICAL HISTORY: pain TECHNIQUE: AP and frogleg views of the right hip are obtained. COMPARISON: None. FINDINGS: There is no acute fracture/dislocation evident. The joint space appears within normal li mits. The overlying soft tissue appears unremarkable. IMPRESSION: 1. There is no acute fracture or dislocation. ICD 10 NO FRACTURE, INITIAL EVALUATION
--- NOTE | 2023-06-22 08:20 | US ---
EXAMINATION TYPE: US venous doppler duplex LE RT DATE OF EXAM: 06/22/2023 7:46 AM COMPARISON: US dated 06/10/2018 CLINICAL INDICATION: Female, 73 years old with history of Right leg pain; SIDE PERFORMED: Right TECHNIQUE: The lower extremity deep venous system is examined utilizing real time linear array sonog baylee with graded compression, doppler sonography and color-flow sonography. VESSELS IMAGED: Common Femoral Vein Deep Femoral Vein Greater Saphenous Vein * Femoral Vein Popliteal Vein Small Saphenous Vein * Proximal Calf Veins (* superficial vessels) Right Leg: Negative for DVT Additional scanning along the popliteal fossa shows no discrete Oconnell cyst. IMPRESSION: No evidence for DVT within the right lower extremity.
[2023-06-22] MEDS ORDERED: ACET/COD 300 MG/30 MG STARTER PACK 6 TAB BTL PO STA (08:33)
[2023-06-22] MEDS ORDERED: ONDANSETRON 4 MG ODT STARTER PACK 2 TAB BTL PO STA (08:33)
[2023-06-22 09:16] VITALS: BP 152/80; PULSE 81
== END 2023-06-22 09:15 | disposition home or self-care (01) ==
LOC: EC 06:41
DX: M79.604 Pain in right leg (principal); E11.9 Type 2 diabetes mellitus without complications; I11.0 Hypertensive heart disease with heart failure; I50.9 Heart failure, unspecified; E07.9 Disorder of thyroid, unspecified; Z86.16 Personal history of COVID-19; Z79.84 Long term (current) use of oral hypoglycemic drugs; Z79.4 Long term (current) use of insulin; Z79.890 Hormone replacement therapy; Z79.899 Other long term (current) drug therapy; W01.198A Fall on same level from slipping, tripping and stumbling with subsequent striking against other object, initial encounter
CPT/HCPCS: 73502; 73552; 73590; 93971; 99284; 96372 ×2; J2270; J1885; S0119

== ENCOUNTER → 2023-09-24 | Outpatient (CLI) | payer MEDICARE, OTHER ==
[2023-09-24 09:49] VITALS: BP 173/73; PULSE 65; RESP 15; TEMP 98.3
--- NOTE | 2023-09-24 15:03 | P.PAINPG ---
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 Pt states she experienced 90% pain relief x 3 mo s/p procedure. Pt also recalls she had a BL RFA of the L4-L5, L5-S1 in Apr 2022 where she experienced 75% pain relief x 8 mo s/p procedure. Pain level is provoked at 10 /10 in intensity, intermittent, localized in the lumbar spine, predominantly axial, stabbing in character w radiation towards the buttocks. Pain is provoked by walking for periods of 20 min or more. Pain is alleviated with medications, topical, injections, PT integrated w massage 3 yrs ago which provoked immense pain and was discontinued, repositioning and rest. Oswestry pain score of 32. Interventional pain procedures completed include BL RFA L3-L5 (April 2022), CADENCE L2-L3 x2, L4-L5 x2 Patient is currently on Tyl Arthritis Patient denies any side effects of the medication(s), denies excessive drowsiness or sleepiness, denies suicidal ideation and reports that the current pain medication is helping to control the pain and improve activities of daily living. Patient denies any motor or sensory deficits. Patient denies any fever or night sweats, denies any change in the bowel movements or urination. Physical Examination: -Constitutional: Cooperative. Not in acute distress . - Neurologic: Cranial nerve II to XII intact. No focal neurological deficits. - Psychatric: Alert & oriented x 3. Matching mood & appropriate affect. Judgment and insight intact. - Musculoskeletal: Cervical spine: Muscle bulk/ tone/ strength in the bilateral upper extremities normal Vertebral body tenderness to palpation over Spurling test positive Distraction test positive Facet loading test positive TTP Thoracic spine Muscle bulk / tone/ strength in the bilateral paraspinal muscles normal Vertebral body tender to palpation over Facet loading test positive TTP Lumbar spine: Motor bulk/ tone/ strength lower extremities , thigh and legs : 5/5 Deep tendon reflexes : Normal Knee Jerk. Normal Ankle Jerk . Vertebral body tenderness to palpation Denson test positive Lumbar Facet Loading Test positive over BL L4-L5, L5-S1 Straight Leg Raise: positive at 30 degrees right side/ left side Gaenslen's Test positive Sacral spine : Severe tenderness over the Sacroiliac joint: right side / left side Range of motion: Flexion of the lumbar spine <60 degrees Range of motion: Extension of the lumbar spine <20 degrees Gaenslen's Test positive right side / left side Jose test: positive right side / left side Thigh Thrust Test positive right side / left side Sacral Thrust Test positive right side / left side Assessment and plan: Chronic LBP secondary to lumbar DDD, spondylosis with facet arthropathy without myelopathy Recommendation of BL RFA L4-L5, L5-S1. Pt exhibited optimal pain relief w prior RFA of BL L4-L5, L5-S1 from Apr 2022. Risks, benefits of procedure discussed and pt verbalized understanding. Protocol for discontinuation/ continuation of medications harriet procedure discussed. All questions answered. I have spent less than 30 minutes on patient care today. Dr Bellamy was available by phone for the evaluation of this patient. The time was used to review the medical records including relevant urine studies and Prescription history (MAPs), review of the available imaging, evaluation and examination of the patient, coordination of care with the medical staff and if applicable referring physicians, as well as creation of the medical record PQRS Narrative: Smoking Status Never smoker Hx Alcohol Use (MH) No Home Medications: Ambulatory Orders Atorvastatin Calcium [Lipitor] 20 mg PO HS 02/14/17 Glimepiride [Amaryl] 4 mg PO AC-BRKFST 02/14/17 Insulin NPH Human Isophane [NovoLIN N] 20 unit SQ BID-W/MEALS 02/14/17 amLODIPine [Norvasc] 10 mg PO DAILY 02/14/17 Insulin Glargine [Lantus Vial] 25 unit SQ HS 03/10/21 Levothyroxine Sodium [Synthroid] 75 mcg PO DAILY 03/10/21 Cholecalciferol [Vitamin D3 (25 Mcg = 1000 Iu)] 25 mcg PO DAILY 09/07/22 Citalopram Hydrobromide [CeleXA] 20 mg PO DAILY 09/07/22 Latanoprost [Latanoprost 0.005%] 1 drop BOTH EYES HS 09/07/22 Losartan Potassium 100 mg PO DAILY 09/07/22 Spironolactone [Aldactone] 25 mg PO DAILY #30 tab 09/11/22 Furosemide [Lasix] 40 mg PO DAILY 11/02/22 Acetaminophen [Tylenol Arthritis] 650 mg PO DIRECTED PRN 05/31/23 hydrALAZINE HCL [Apresoline] 100 mg PO TID 05/31/23 Ketorolac [Toradol] 10 mg PO Q6HR PRN #15 tab 06/22/23 Controlled Substance Measures - Controlled Substance Measures Is patient prescribed a controlled substance at discharge?: No
== END ==
LOC: PNWHC3 08:31
PROVIDERS: ATTEND Specialist
DX: M51.37 Other intervertebral disc degeneration, lumbosacral region (principal); G89.29 Other chronic pain; M47.817 Spondylosis without myelopathy or radiculopathy, lumbosacral region
CPT/HCPCS: 99211

== ENCOUNTER 2023-10-19 07:13 | Day surgery (SDC) | payer MEDICARE ==
[2023-10-19] MEDS ORDERED: LACTATED RINGERS 1,000 ML IV ONE (07:51)
[2023-10-19 07:56] LABS: Glucose,Whole Blood 100 mg/dL (70-110)
[2023-10-19 08:03] VITALS: TEMP 97.4
[2023-10-19] MEDS ORDERED: MIDAZOLAM 2 MG/2 ML VIAL ONE (08:26)
[2023-10-19] MEDS ORDERED: fentaNYL (PF) 50 MCG/ML 2 ML AMP ONE (08:26)
[2023-10-19] MEDS ORDERED: methylPREDNISolone ACETATE 40 MG/ML 1 ML VIAL ONE (08:27)
[2023-10-19] MEDS ORDERED: ROPIVACAINE 5MG/ML 20ML VIAL ONE (08:27)
--- NOTE | 2023-10-19 08:52 | P.PCN ---
Date of Procedure: 10/19/23 Procedure(s) Performed: PREOPERATIVE DIAGNOSIS: 1-Lumbar Spondylosis with Facet Arthropathy without myelopathy. 2- Lumber degenerative disc disease POSTOPERATIVE DIAGNOSIS: 1- Lumbar Spondylosis with Facet Arthropathy without myelopathy. 2- Lumber degenerative disc disease. PROCEDURES : Bilateral Radiofrequency thermocoagulation, L3 , L4 , and L5 medial branch, with fluoroscopic guidance (fluoroscopy images available in the radiology department) ( to denervate the facet joint at Bilateral L4-5 ,and L5-S1 levels ). ANESTHESIA: Monitored anesthesia care as per anesthesia department. EBL: Minimal PROCEDURE INDICATION: The patient with low back pain secondary to lumbar facet arthropathy who had more than 50% relief of her pain with previous diagnostic lumbar medial branch block with bupivacaine. PROCEDURE DESCRIPTION / TECHNIQUE: The patient was seen and identified in the preoperative area. Risks, benefits, complications, including but not limited to risk of infection ,bleeding , allergic reactions to the medications and no complete pain releife , and alternatives were discussed with the patient, the patient agreed to proceed with the procedure and signed the consent. IV was started. Vital signs remained stable throughout the procedure. Patient was taken to the OR and time out was completed. The patient was placed in the prone position on the procedure table. The lumber area was prepped and draped in the usual sterile fashion. . Vital signs were closely monitored during the procedure .IV sedation was used during the procedure to decrease patients anxiety. Using AP and then oblique fluoroscopy, the ``eye of the Sean dog cor responding to the connection between the superior and transverse articular processes of right L3, L4, and L5 were identified, marked, and localized with 1% lidocaine. Subsequently, a 18 [id number] (VENUM ) radiofrequency cannula with a 10-mm active tip was advanced guided by fluoroscopy to each of the``eyes of the Sean dog at right L3, L4, and L5. Each site then underwent sensory testing at 50 Hz and 0 to 1 volt and motor testing at 2.5 Hz and 0 to 3 volt with local stimulation, but no radicular symptoms down the legs. Thereafter each sites underwent radiofrequency thermocoagulation at 80 degrees celsius for 90 seconds after injecting 0.5 ml of PF Ropivacaine 1ml, then after the thermocoagulation done , 1 ml of the block solution containing Depo-Medrol 20 mg and 3 ml of Ropivacaine 0.5% was injected at the right L3 , L4 , and L5 , levels after negative aspiration of CSF and blood and with no paresthesias. Cannulas were retracted while injecting lidocaine 1% until the needle is out. The same procedure was repeated at the level of Left L3, L4, and L5 levels. At the end of the procedure, the skin was cleansed and bandages were applied. COMPLICATIONS: No acute complications. DISPOSITION / PLANS: The patient was placed in a supine position and transferred to the recovery area in a stable condition for observation and was discharged from the recovery room after meeting discharge criteria. Home discharge instructions given to the patient by the staff. The patient was reexamined prior to discharge. The patient will schedule a follow up in the clinic in 2-4 weeks.
[2023-10-19] MEDS ORDERED: IV FLUID CONTINUATION 500 ML IV ONE (08:56)
[2023-10-19] MEDS ORDERED: LACTATED RINGERS 1,000 ML IV SCH (09:08)
[2023-10-19 09:22] VITALS: BP 150/65; PULSE 52; RESP 16
--- NOTE | 2023-10-19 10:38 | FL ---
Intraoperative/procedural fluoroscopic services were provided. Total fluoroscopy time is 12.6 seconds with a total of 6 submitted images to PACS. Please see the operative/procedural note for further det ails. DAP: [id number] mGym2
== END 2023-10-19 09:27 | disposition home or self-care (01) ==
LOC: ORPAIN 07:13
PROVIDERS: ATTEND Specialist
DX: M51.36 Other intervertebral disc degeneration, lumbar region (principal); M47.816 Spondylosis without myelopathy or radiculopathy, lumbar region; I25.10 Atherosclerotic heart disease of native coronary artery without angina pectoris; I11.0 Hypertensive heart disease with heart failure; E11.9 Type 2 diabetes mellitus without complications; I10 Essential (primary) hypertension; E78.5 Hyperlipidemia, unspecified; E03.9 Hypothyroidism, unspecified; Z79.84 Long term (current) use of oral hypoglycemic drugs; Z79.890 Hormone replacement therapy; Z79.899 Other long term (current) drug therapy
CPT/HCPCS: 64635; 64636 ×2; J2250; J1030; J3010; J2795

== ENCOUNTER → 2023-11-20 | Outpatient (CLI) | payer MEDICARE ==
[2023-11-20 09:49] VITALS: BP 133/82; PULSE 64; RESP 15; TEMP 97.2
--- NOTE | 2023-11-20 12:59 | P.PAINPG ---
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 Pt states she experienced 80% pain relief s/p procedure. Pain level is provoked at 0 /10 in intensity. Pain was provoked by walking for periods of 20 min or more. Pain is alleviated with injections, medications, topical, injections, PT integrated w massage 3 yrs ago which provoked immense pain and was discontinued, repositioning and rest. Oswestry axial pain score of 10. Interventional pain procedures completed include BL RFA L3-L5 (April 2022, Oct 2023), CADENCE L2-L3 x2, L4-L5 x2 Patient is currently on Tyl Arthritis Patient denies any side effects of the medication(s), denies excessive drowsiness or sleepiness, denies suicidal ideation and reports that the current pain medication is helping to control the pain and improve activities of daily living. Patient denies any motor or sensory deficits. Patient denies any fever or night sweats, denies any change in the bowel movements or urination. Physical Examination: -Constitutional: Cooperative. Not in acute distress . - Neurologic: Cranial nerve II to XII intact. No focal neurological deficits. - Psychatric: Alert & oriented x 3. Matching mood & appropriate affect. Judgment and insight intact. - Musculoskeletal: Cervical spine: Muscle bulk/ tone/ strength in the bilateral upper extremities normal Vertebral body tenderness to palpation over Spurling test positive Distraction test positive Facet loading test positive TTP Thoracic spine Muscle bulk / tone/ strength in the bilateral paraspinal muscles normal Vertebral body tender to palpation over Facet loading test positive TTP Lumbar spine: Motor bulk/ tone/ strength lower extremities , thigh and legs : 5/5 Deep tendon reflexes : Normal Knee Jerk. Normal Ankle Jerk . Vertebral body tenderness to palpation Denson test positive Lumbar Facet Loading Test positive Straight Leg Raise: positive at 30 degrees right side/ left side Gaenslen's Test positive Sacral spine : Severe tenderness over the Sacroiliac joint: right side / left side Range of motion: Flexion of the lumbar spine <60 degrees Range of motion: Extension of the lumbar spine <20 degrees Gaenslen's Test positive right side / left side Jose test: positive right side / left side Thigh Thrust Test positive right side / left side Sacral Thrust Test positive right side / left side Assessment and plan: Chronic LBP secondary to lumbar DDD, spondylosis with facet arthropathy without myelopathy Will manage residual pain and may RTC on an as needed basis. All questions answered. I have spent less than 30 minutes on patient care today. Dr Bellamy was available by phone for the evaluation of this patient. The time was used to review the medical records including relevant urine studies and Prescription history (MAPs), review of the available imaging, evaluation and examination of the patient, coordination of care with the medical staff and if applicable referring physicians, as well as creation of the medical record PQRS Narrative: Smoking Status Never smoker Hx Alcohol Use (MH) No Home Medications: Ambulatory Orders Atorvastatin Calcium [Lipitor] 20 mg PO HS 02/14/17 Glimepiride [Amaryl] 4 mg PO AC-BRKFST 02/14/17 Insulin NPH Human Isophane [NovoLIN N] 20 unit SQ BID-W/MEALS 02/14/17 amLODIPine [Norvasc] 10 mg PO DAILY 02/14/17 Insulin Glargine [Lantus Vial] 25 unit SQ HS 03/10/21 Levothyroxine Sodium [Synthroid] 75 mcg PO DAILY 03/10/21 Cholecalciferol [Vitamin D3 (25 Mcg = 1000 Iu)] 25 mcg PO DAILY 09/07/22 Citalopram Hydrobromide [CeleXA] 20 mg PO DAILY 09/07/22 Latanoprost [Latanoprost 0.005%] 1 drop BOTH EYES HS 09/07/22 Losartan Potassium 100 mg PO DAILY 09/07/22 Spironolactone [Aldactone] 25 mg PO DAILY #30 tab 09/11/22 Furosemide [Lasix] 40 mg PO DAILY 11/02/22 Acetaminophen [Tylenol Arthritis] 650 mg PO DIRECTED PRN 05/31/23 hydrALAZINE HCL [Apresoline] 100 mg PO TID 05/31/23 Controlled Substance Measures - Controlled Substance Measures Is patient prescribed a controlled substance at discharge?: No
== END ==
LOC: PNWHC3 09:07
PROVIDERS: ATTEND Specialist
DX: M51.36 Other intervertebral disc degeneration, lumbar region (principal); M47.816 Spondylosis without myelopathy or radiculopathy, lumbar region; G89.29 Other chronic pain
CPT/HCPCS: 99211

== ENCOUNTER → 2023-12-06 | Outpatient (CLI) | payer MEDICARE ==
[2023-12-06 10:55] LABS: Amorphous Sediment,Urine Few /hpf; Appearance,Urine Cloudy (Clear); Bacteria,Urine Occasional /hpf; Bilirubin,Urine Negative (Negative); Blood,Urine Negative (Negative); Color,Urine Light Yellow; Glucose,Urine (UA) Negative (Negative); Hyaline Casts,Urine 3 /lpf (0-2); Ketones,Urine Negative (Negative); Leukocyte Esterase,Urine Small (Negative); Mucus,Urine Rare /hpf; Nitrite,Urine Negative (Negative); Protein,Urine 1+ (Negative); RBC,Urine 5 /hpf (0-5); Specific Gravity,Urine 1.018 (1.001-1.035); Squamous Epithelial Cell,Urine 9 /hpf (0-4); Urobilinogen,Urine <2.0 mg/dL (<2.0); WBC,Urine 15 /hpf (0-5)
[2023-12-06 15:25] LABS: HCT 34.1 % (37.2-46.3); HGB 11.1 g/dL (12.0-15.0); MCH 31.1 pg (27.0-32.0); MCHC 32.6 g/dL (32.0-37.0); MCV 95.5 FL (80.0-97.0); Mean Platelet Volume 10.5 FL (9.5-12.2); NRBC Per 100 WBC 0 X 10*3/uL (0.00-0.01); Platelet Count 169 X 10*3/uL (140-440); RBC 3.57 X 10*6/uL (4.10-5.20); RDW 12.8 % (11.5-14.5); WBC 5.92 X 10*3/uL (4.50-10.00)
[2023-12-06 15:35] LABS: % Iron Saturation 23.04 (12.00-45.00); ALT 20 U/L (8-44); AST 17 U/L (13-35); Albumin 4.3 g/dL (3.8-4.9); Albumin/Globulin Ratio 2.05 Ratio (1.60-3.17); Alkaline Phosphatase 130 U/L (41-126); Blood Urea Nitrogen 34.1 mg/dL (9.0-27.0); Carbon Dioxide 22.6 mmol/L (21.6-31.8); Chloride 109 mmol/L (96-109); Ferritin 51.2 ng/mL (10.0-291.0); Globulin 2.1 g/dL (1.6-3.3); Glucose 128 mg/dL (70-110); Iron 88 UG/DL (50-170); Magnesium 1.9 mg/dL (1.5-2.4); Phosphorus 4.4 mg/dL (2.4-5.1); Potassium 4.7 mmol/L (3.5-5.5); Sodium 145 mmol/L (135-145); Total Bilirubin 0.4 mg/dL (0.3-1.2); Total Iron Binding Capacity 382 UG/DL (228-460); Total Protein 6.4 g/dL (6.2-8.2); Uric Acid 5.6 mg/dL (2.9-7.7)
[2023-12-06 16:25] LABS: Hepatitis A Antibody IgM Nonreactive; Hepatitis B Core IgM Nonreactive; Hepatitis B Surface Antigen Nonreactive; Hepatitis C IgG Antibody Nonreactive
== END | disposition home or self-care (01) ==
LOC: LABWHC1 07:11
PROVIDERS: ATTEND Internal Medicine
DX: N25.81 Secondary hyperparathyroidism of renal origin (principal); N18.32 Chronic kidney disease, stage 3b; D63.1 Anemia in chronic kidney disease; N39.0 Urinary tract infection, site not specified; E55.9 Vitamin D deficiency, unspecified; M10.9 Gout, unspecified; R80.9 Proteinuria, unspecified
CPT/HCPCS: 36415; 80053; 80074; 81001; 82043; 82306; 82570; 82728; 83540; 83550; 83735; 83970; 84100; 84550; 85027

== ENCOUNTER → 2024-05-08 | Outpatient (CLI) | payer MEDICARE ==
[2024-05-08 12:56] VITALS: BP 164/74; PULSE 63; RESP 18
--- NOTE | 2024-05-08 14:54 | P.PAINPG ---
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 Pt underwent a BL RFA L3-L5 in Oct 17 2023 where she experienced 75% pain relief x 6 mo s/p procedure. Pain level is provoked at 9 /10 in intensity, predominantly axial, intermittent, localized in the lower lumbar spine, stabbing in character w occasional radiation L & R of midline. Pain was provoked by walking for periods of 20 min or more. Pain is alleviated with injections, medications, topical, physician guided stretches every morning since Oct 2023, use of a walker for ambulatory assistance, repositioning and rest. Oswestry axial pain score of 18. Interventional pain procedures completed include BL RFA L3-L5 (April 2022, Oct 2023), CADENCE L2-L3 x2, L4-L5 x2 Patient is currently on Tyl Arthritis Patient denies any side effects of the medication(s), denies excessive drowsiness or sleepiness, denies suicidal ideation and reports that the current pain medication is helping to control the pain and improve activities of daily living. Patient denies any motor or sensory deficits. Patient denies any fever or night sweats, denies any change in the bowel movements or urination. Physical Examination: -Constitutional: Cooperative. Not in acute distress . - Neurologic: Cranial nerve II to XII intact. No focal neurological deficits. - Psychatric: Alert & oriented x 3. Matching mood & appropriate affect. Judgment and insight intact. - Musculoskeletal: Cervical spine: Muscle bulk/ tone/ strength in the bilateral upper extremities normal Vertebral body tenderness to palpation over Spurling test positive Distraction test positive Facet loading test positive TTP Thoracic spine Muscle bulk / tone/ strength in the bilateral paraspinal muscles normal Vertebral body tender to palpation over Facet loading test positive TTP Lumbar spine: Motor bulk/ tone/ strength lower extremities , thigh and legs : 5/5 Deep tendon reflexes : Normal Knee Jerk. Normal Ankle Jerk . Vertebral body tenderness to palpation Denson test positive Lumbar Facet Loading Test positive BL L4-L5, L5-S1 Straight Leg Raise: positive at 30 degrees right side/ left side Gaenslen's Test positive Sacral spine : Severe tenderness over the Sacroiliac joint: right side / left side Range of motion: Flexion of the lumbar spine <60 degrees Range of motion: Extension of the lumbar spine <20 degrees Gaenslen's Test positive right side / left side Jose test: positive right side / left side Thigh Thrust Test positive right side / left side Sacral Thrust Test positive right side / left side Assessment and plan: Chronic LBP secondary to lumbar DDD, spondylosis with facet arthropathy without myelopathy Recommendation of BL RFA L3-L5. Exhibited substantial relief w prior BL RFA procedure from Oct 2023. Risks, benefits of procedure discussed and pt verbalized understanding. Protocol for discontinuation/ continuation of medications harriet procedure discussed. Minimal anesthesia including Fentanyl and Versed if clinically indicated. All questions answered. I have spent less than 30 minutes on patient care today. Dr Bellamy was available by phone for the evaluation of this patient. The time was used to review the medical records including relevant urine studies and Prescription history (MAPs), review of the available imaging, evaluation and examination of the patient, coordination of care with the medical staff and if applicable referring physicians, as well as creation of the medical record - Pain Location Lower Back Pharmacological Interventions: Medication, PRN Medication PQRS Narrative: Smoking Status Never smoker Blood Pressure 112/60 Pain Intensity [Lower Back] 7 Scale Used Numeric (1 - 10) Hx Alcohol Use (MH) No Home Medications: Ambulatory Orders Atorvastatin Calcium [Lipitor] 20 mg PO HS 02/14/17 Glimepiride [Amaryl] 4 mg PO AC-BRKFST 02/14/17 Insulin NPH Human Isophane [NovoLIN N] 20 unit SQ BID-W/MEALS 02/14/17 amLODIPine [Norvasc] 10 mg PO DAILY 02/14/17 Insulin Glargine [Lantus Vial] 25 unit SQ HS 03/10/21 Levothyroxine Sodium [Synthroid] 75 mcg PO DAILY 03/10/21 Cholecalciferol [Vitamin D3 (25 Mcg = 1000 Iu)] 25 mcg PO DAILY 09/07/22 Citalopram Hydrobromide [CeleXA] 20 mg PO DAILY 09/07/22 Latanoprost [Latanoprost 0.005%] 1 drop BOTH EYES HS 09/07/22 Losartan Potassium 100 mg PO DAILY 09/07/22 Spironolactone [Aldactone] 25 mg PO DAILY #30 tab 09/11/22 Furosemide [Lasix] 40 mg PO DAILY 11/02/22 Acetaminophen [Tylenol Arthritis] 650 mg PO DIRECTED PRN 05/31/23 hydrALAZINE HCL [Apresoline] 100 mg PO TID 05/31/23 Controlled Substance Measures - Controlled Substance Measures Is patient prescribed a controlled substance at discharge?: No
== END ==
LOC: PNWHC3 12:18
PROVIDERS: ATTEND Specialist
DX: M51.37 Other intervertebral disc degeneration, lumbosacral region (principal); M47.817 Spondylosis without myelopathy or radiculopathy, lumbosacral region
CPT/HCPCS: 99211

== ENCOUNTER 2024-06-03 07:07 | Day surgery (SDC) | payer MEDICARE ==
[2024-06-03 07:57] VITALS: RESP 18; TEMP 97.2
[2024-06-03] MEDS: LACTATED RINGERS 1,000 ML IV SCH (08:05)
[2024-06-03] MEDS: IV FLUID CONTINUATION 1,000 ML IV ONE (08:05)
[2024-06-03 08:07] LABS: Glucose,Whole Blood 119 mg/dL (70-110)
[2024-06-03] MEDS ORDERED: fentaNYL (PF) 50 MCG/ML 2 ML AMP ONE (08:25)
[2024-06-03] MEDS ORDERED: MIDAZOLAM 2 MG/2 ML VIAL ONE (08:25)
[2024-06-03] MEDS ORDERED: ROPIVACAINE 5MG/ML 20ML VIAL ONE (08:25)
--- NOTE | 2024-06-03 08:45 | P.PCN ---
Date of Procedure: 06/03/24 Description of Procedure: PREOPERATIVE DIAGNOSIS: Lumbar Facet Arthropathy without myelopathy POSTOPERATIVE DIAGNOSIS: Same PROCEDURES: bilateral Radiofrequency thermocoagulation of L4-5, L5-S1 medial branches, with fluoroscopic guidance ANESTHESIA: Patient re-evaluated immediately prior to sedation Medication Administered by: Nurse Sedation Type: Moderate sedation Sedation Supervision start time: 824 Sedation Supervision end time: 843 EBL: Minimal Imaging: Fluoroscopy was used, images where saved to the medical record PROCEDURE INDICATION: The patient with low back pain secondary to lumbar facet arthropathy who had more than 50% relief of pain with previous diagnostic lumbar medial branch block with local anesthetic. PROCEDURE DESCRIPTION / TECHNIQUE: The patient was seen and identified in the preoperative area. Risks, benefits, complications, including but not limited to risk of infection, bleeding, allergic reactions to the medications and no complete pain relief, and alternatives were discussed with the patient, the patient agreed to proceed with the procedure and signed the consent. IV was started. Vital signs remained stable throughout the procedure. Patient was taken to the OR and time out was completed. The patient was placed in the prone position on the procedure table. The lumber area was prepped and draped in the usual sterile fashion. Vital signs were closely monitored during the procedure. IV sedation was used during the procedure to decrease patient anxiety. Using AP and then oblique fluoroscopy, the eye of the Sean dog corresponding to the connection between the superior and transverse articular processes of L4, L5, and sacral Ala were identified, marked, and localized with 1% lidocaine. Subsequently, a 20 [id number] radiofrequency cannula with a 10-mm active tip was advanced guided by fluoroscopy to the junction of the pedicle and transverse process of each identified level. Each site then underwent sensory testing at 50 Hz and 0 to 1 volt and motor testing at 2.5 Hz and 0 to 3 volt with local stimulation, no radicular symptoms sensed by the patient and no obvious motor stimulation noted. Thereafter the tested sites underwent radiofrequency thermocoagulation at 80 degrees celsius for 90 seconds after injecting 1 ml of PF lidocaine 1%. Then after the thermocoagulation was done, 1 ml of the block solution containing ropivaciane 0.5% was injected at the lesioned sites after negative aspiration of CSF and blood and with no paresthesias. Cannulas were retracted. At the end of the procedure, the skin was cleansed and bandages were applied. COMPLICATIONS: No acute complications. DISPOSITION / PLANS: The patient was placed in a supine position and transferred to the recovery area in a stable condition for observation and was discharged from the recovery room after meeting discharge criteria. Home discharge instructions given to the patient by the staff. The patient was reexamined prior to discharge. Patient will follow up as directed.
[2024-06-03] MEDS: IV FLUID CONTINUATION 900 ML IV ONE (08:54)
--- NOTE | 2024-06-03 09:04 | FL ---
Fluoroscopy History: M47.816 LUMBAR SPONDYLOSIS LUMBAR SPONDYLOSIS DR. GARCIA FL TIME- 12.6SEC DAP- 0.39324 mGym2
[2024-06-03 09:17] VITALS: BP 143/76; PULSE 73
== END 2024-06-03 09:34 | disposition home or self-care (01) ==
LOC: ORPAIN 07:07
PROVIDERS: ATTEND Hospitalist
DX: M47.816 Spondylosis without myelopathy or radiculopathy, lumbar region (principal); Z79.899 Other long term (current) drug therapy
CPT/HCPCS: 64635; 64636 ×2; 99152; J2250; J3010; J2795

== ENCOUNTER → 2024-06-25 | Outpatient (CLI) | payer MEDICARE | END | disposition home or self-care (01) | LOC: LABPRL 12:00 | PROVIDERS: ATTEND Nurse Practitioner Family | DX: N18.32 Chronic kidney disease, stage 3b (principal); D63.1 Anemia in chronic kidney disease; N39.0 Urinary tract infection, site not specified; E55.9 Vitamin D deficiency, unspecified; M10.9 Gout, unspecified; N25.81 Secondary hyperparathyroidism of renal origin | CPT/HCPCS: 80053; 82043; 82306; 82570; 82728; 83540; 83550; 83735; 83970; 84100; 84550; 85025 ==

== ENCOUNTER → 2024-07-17 | Outpatient (CLI) | payer MEDICARE ==
[2024-07-17 14:00] VITALS: BP 154/74; PULSE 61; RESP 16; TEMP 98.6
--- NOTE | 2024-07-17 14:15 | P.PAINPG ---
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 Pt states she experienced 90% pain relief s/p procedure. Pain level is provoked at 3 /10 in intensity, predominantly axial, intermittent, localized in the lower lumbar spine, stabbing in character w occasional radiation L & R of midline. Pain was provoked by walking for periods of 20 min or more. Pain is alleviated with injections, medications, topical, physician guided stretches every morning since Oct 2023, use of a walker/ wheelchair for ambulatory assistance, repositioning and rest. Interventional pain procedures completed include BL RFA L3-L5 (April 2022, Oct 2023, May 2024), CADENCE L2-L3 x2, L4-L5 x2 Patient is currently on Tyl Arthritis Patient denies any side effects of the medication(s), denies excessive drowsiness or sleepiness, denies suicidal ideation and reports that the current pain medication is helping to control the pain and improve activities of daily living. Patient denies any motor or sensory deficits. Patient denies any fever or night sweats, denies any change in the bowel movements or urination. Physical Examination: -Constitutional: Cooperative. Not in acute distress . - Neurologic: Cranial nerve II to XII intact. No focal neurological deficits. - Psychatric: Alert & oriented x 3. Matching mood & appropriate affect. Judgment and insight intact. - Musculoskeletal: Cervical spine: Muscle bulk/ tone/ strength in the bilateral upper extremities normal Vertebral body tenderness to palpation over Spurling test positive Distraction test positive Facet loading test positive TTP Thoracic spine Muscle bulk / tone/ strength in the bilateral paraspinal muscles normal Vertebral body tender to palpation over Facet loading test positive TTP Lumbar spine: Motor bulk/ tone/ strength lower extremities , thigh and legs : 5/5 Deep tendon reflexes : Normal Knee Jerk. Normal Ankle Jerk . Vertebral body tenderness to palpation Denson test positive Lumbar Facet Loading Test positive BL L4-L5, L5-S1 Straight Leg Raise: positive at 30 degrees right side/ left side Gaenslen's Test positive Sacral spine : Severe tenderness over the Sacroiliac joint: right side / left side Range of motion: Flexion of the lumbar spine <60 degrees Range of motion: Extension of the lumbar spine <20 degrees Gaenslen's Test positive right side / left side Jose test: positive right side / left side Thigh Thrust Test positive right side / left side Sacral Thrust Test positive right side / left side Assessment and plan: Chronic LBP secondary to lumbar DDD, spondylosis with facet arthropathy without myelopathy Will manage residual pain and may RTC on an as needed basis. All questions answered. I have spent less than 30 minutes on patient care today. Dr Bellamy was available by phone for the evaluation of this patient. The time was used to review the medical records including relevant urine studies and Prescription history (MAPs), review of the available imaging, evaluation and examination of the patient, coordination of care with the medical staff and if applicable referring physicians, as well as creation of the medical record PQRS Narrative: Smoking Status Never smoker Hx Alcohol Use (MH) No Home Medications: Ambulatory Orders Atorvastatin Calcium [Lipitor] 20 mg PO HS 02/14/17 Glimepiride [Amaryl] 4 mg PO AC-BRKFST 02/14/17 Insulin NPH Human Isophane [NovoLIN N] 18 unit SQ BID-W/MEALS 02/14/17 amLODIPine [Norvasc] 10 mg PO DAILY 02/14/17 Insulin Glargine [Lantus Vial] 20 unit SQ QAM 03/10/21 Levothyroxine Sodium [Synthroid] 75 mcg PO DAILY 03/10/21 Cholecalciferol [Vitamin D3 (25 Mcg = 1000 Iu)] 25 mcg PO DAILY 09/07/22 Citalopram Hydrobromide [CeleXA] 20 mg PO DAILY 09/07/22 Latanoprost [Latanoprost 0.005%] 1 drop BOTH EYES HS 09/07/22 Losartan Potassium 50 mg PO DAILY 09/07/22 Spironolactone [Aldactone] 25 mg PO DAILY #30 tab 09/11/22 Furosemide [Lasix] 40 mg PO DAILY 11/02/22 Acetaminophen [Tylenol Arthritis] 650 mg PO DIRECTED PRN 05/31/23 hydrALAZINE HCL [Apresoline] 100 mg PO TID 05/31/23 Controlled Substance Measures - Controlled Substance Measures Is patient prescribed a controlled substance at discharge?: No
== END ==
LOC: PNWHC3 13:00
PROVIDERS: ATTEND Specialist
DX: M47.816 Spondylosis without myelopathy or radiculopathy, lumbar region
CPT/HCPCS: 99211

== ENCOUNTER 2024-07-23 08:34 | Emergency (ER) | payer MEDICARE, OTHER ==
[2024-07-23 08:38] VITALS: PULSE 79
--- NOTE | 2024-07-23 08:59 | ED ---
General Adult HPI - General Chief complaint: Extremity Injury, Lower Stated complaint: L Foot Injury Time Seen by Provider: 07/23/24 08:41 Source: patient Mode of arrival: ambulatory Limitations: no limitations - History of Present Illness Initial comments: Dictation was produced using [employer] dictation software. please excuse any grammatical, word or spelling errors. Chief Complaint: 74-year-old female with left foot pain History of Present Illness: Patient 74-year-old female she was reaching down when she inverted her left foot. Now she has severe left lateral foot pain. Patient denies any pain over the malleolus. Patient [place] any history of surgery to that area. The ROS documented in this emergency department record has been reviewed and confirmed by me. Those systems with pertinent positive or negative responses have been documented in the HPI. All other systems are other negative and/or noncontributory. - Related Data Home Medications Medication Instructions Recorded Confirmed Atorvastatin Calcium [Lipitor] 20 mg PO HS 02/14/17 07/17/24 Glimepiride [Amaryl] 4 mg PO AC-BRKFST 02/14/17 07/17/24 Insulin NPH Human Isophane 18 unit SQ BID-W/MEALS 02/14/17 07/17/24 [NovoLIN N] amLODIPine [Norvasc] 10 mg PO DAILY 02/14/17 07/17/24 Insulin Glargine [Lantus Vial] 20 unit SQ QAM 03/10/21 07/17/24 Levothyroxine Sodium [Synthroid] 75 mcg PO DAILY 03/10/21 07/17/24 Cholecalciferol [Vitamin D3 (25 25 mcg PO DAILY 09/07/22 07/17/24 Mcg = 1000 Iu)] Citalopram Hydrobromide [CeleXA] 20 mg PO DAILY 09/07/22 07/17/24 Latanoprost [Latanoprost 0.005%] 1 drop BOTH EYES HS 09/07/22 07/17/24 Losartan Potassium 50 mg PO DAILY 09/07/22 07/17/24 Furosemide [Lasix] 40 mg PO DAILY 11/02/22 07/17/24 Acetaminophen [Tylenol Arthritis] 650 mg PO DIRECTED PRN 05/31/23 07/17/24 hydrALAZINE HCL [Apresoline] 100 mg PO TID 05/31/23 07/17/24 Previous Rx's Medication Instructions Recorded Spironolactone [Aldactone] 25 mg PO DAILY #30 tab 09/11/22 Allergies Allergy/AdvReac Type Severity Reaction Status Date / Time No Known Allergies Allergy Verified 07/23/24 08:37 Review of Systems ROS Statement: Those systems with pertinent positive or pertinent negative responses have been documented in the HPI. ROS Other: All systems not noted in ROS Statement are negative. Past Medical History Past Medical History: Heart Failure, Diabetes Mellitus, Hyperlipidemia, Hypertension, Osteoarthritis (OA), Thyroid Disorder Additional Past Medical History / Comment(s): "Resting heart rate in 40's @times, chronic back pain, covid infection March 2022, watching kidney function d/t pain medication and potassium. History of Any Multi-Drug Resistant Organisms: None Reported Past Surgical History: Section, Cholecystectomy, Hysterectomy, Tonsillectomy Additional Past Surgical History / Comment(s): COLONOSCOPY, pain procedures, CYST REMOVED FROM NECK AREA. Past Anesthesia/Blood Transfusion Reactions: No Reported Reaction Past Psychological History: No Psychological Hx Reported Smoking Status: Never smoker Past Alcohol Use History: Rare Past Drug Use History: None Reported - Past Family History Mother Family Medical History: Cancer, Hypertension Father Family Medical History: Congestive Heart Failure (CHF) General Exam - General Exam Comments Initial Comments: General: Well-appearing, nontoxic, no acute distress. Head: Normocephalic, atraumatic Eyes: PERRLA, EOMI ENT: Airway patent Chest: Nonlabored breathing Skin: No visual rash, normal skin tone Neuro: Alert and oriented 3 Musculoskeletal: No gross abnormalities Left foot: Pain over the fifth metatarsal, no palpatory pain over the malleoli Limitations: no limitations Course Vital Signs 07/23/24 08:35 Temperature 98.2 F Pulse Rate 79 Respiratory 20 Rate Blood Pressure 120/64 O2 Sat by Pulse 97 Oximetry Procedures - Orthopedic Splinting/Casting Injury #1 Side: left Lower Extremity Immobilizer: posterior splint Other Orthopedic Equipment: crutches Medical Decision Making - Medical Decision Making Was pt. sent in by a medical professional or institution (, PA, MARKETING REGIONAL CONSULTANT, urgent care, hospital, or long term...) When possible be specific @ -No Did you speak to anyone other than the patient for history (EMS, parent, family, police, friend...)? What history was obtained from this source @ -No Did you review nursing and triage notes (agree or disagree)? Why? @ -I reviewed and agree with nursing and triage notes Were old charts reviewed (outside hosp., previous admission, EMS record, old EKG, old radiological studies, urgent care reports/EKG's, long term records)? Report findings @ -No old charts were reviewed Differential Diagnosis (chest pain, altered mental status, abdominal pain women, abdominal pain men, vaginal bleeding, musculoskeletal, weakness, fever, dyspnea, syncope, headache, dizziness, GI bleed, back pain, seizure, CVA, pal patations, mental health)? @ -Ankle sprain, ankle fracture, Aguayo fracture EKG interpreted by me (3pts min.). @ -None done X-rays interpreted by me (1pt min.). @ -Left foot x-ray shows fifth proximal metatarsal fracture, left ankle x-ray shows no acute processes CT interpreted by me (1pt min.). @ -None done U/S interpreted by me (1pt. min.). @ -None done What testing was considered but not performed or refused? (CT, X-rays, U/S, labs)? Why? @ -None What meds were considered but not given or refused? Why? @ -None Was smoking cessation discussed for >3mins.? @ -No Were there social determinants of health that impacted care today? How? (Homelessness, low income, unemployed, alcoholism, drug addiction, transportation, low edu. Level, literacy, decrease access to med. care, snf, rehab)? @ -No Was there de-escalation of care discussed even if they declined (Discuss DNR or withdrawal of care, Hospice)? DNR status @ -No What co-morbidities impacted this encounter? (DM, HTN, Smoking, COPD, CAD, Cancer, CVA, ARF, Chemo, Hep., AIDS, mental health diagnosis, sleep apnea, morbid obesity)? @ -None Was patient admitted / discharged? Hospital course, mention meds given and route, prescriptions, significant lab abnormalities, going to OR and other pertinent info. @ -71-year-old female presents with left foot pain after inversion mechanism of injury. Vital signs stable. Patient has palpatory pain to the base of the fifth metatarsal. X-ray shows fracture at the base of the fifth metatarsal. Patient placed in a splint. Given crutches told to remain nonweightbearing she states she has an appointment [facility] at 3:00 PM today. Did you discuss the management of the patient with other professionals (professionals i.e. , PA, MARKETING REGIONAL CONSULTANT, lab, RT, psych nurse, social work coordinator, trash man, teacher, combat information center officer, business case analyst)? Give summary @ -No Was critical care preformed (if so, how long)? @ -No Undiagnosed new problem with uncertain prognosis? @ -No Drug Therapy requiring intensive monitoring for toxicity (Heparin, Nitro, Insulin, Cardizem)? @ -No Were any procedures done? @ -See above Diagnosis/symptom? Acute, or Chronic, or Acute on Chronic? Uncomplicated (without systemic symptoms) or Complicated (systemic symptoms)? @ -Metatarsal fracture Side effects of treatment? @ -No Exacerbation, Progression, or Severe Exacerbation? @ -No Poses a threat to life or bodily function? How? (Chest pain, [place], [place], pneumonia, PE, COPD, DKA, ARF, appy, cholecystitis, CVA, Diverticulitis, Homicidal, Suicidal, threat to staff... and all critical care pts) @ -yes Disposition Clinical Impression: Metatarsal fracture Disposition: HOME SELF-CARE Condition: Good Instructions (If sedation given, give patient instructions): Foot Fracture in Adults (ED) Is patient prescribed a controlled substance at d/c from ED?: No Referrals: Marcos Patino DO [Doctor of Osteopathic Medicine] - 1-2 days Time of Disposition: 09:34
--- NOTE | 2024-07-23 09:05 | XR ---
EXAMINATION TYPE: XR ankle complete LT DATE OF EXAM: 07/23/2024 COMPARISON: NONE HISTORY: Pain TECHNIQUE: 3 views of the left ankle are submitted for evaluation. FINDINGS: There is no evidence for fracture or dislocation. Ankle mortise is intact. Soft tissues are within normal limits. IMPRESSION: 1. No evidence for acute fracture.
--- NOTE | 2024-07-23 09:06 | XR ---
EXAMINATION TYPE: XR foot complete LT DATE OF EXAM: 07/23/2024 CLINICAL HISTORY: pain TECHNIQUE: Frontal, lateral and oblique images of the left foot are obtained. COMPARISON: None. FINDINGS: Nondisplaced fracture at the base of the left fifth metatarsal. The joint spaces appear wi thin normal limits. The overlying soft tissue appears unremarkable. IMPRESSION: Nondisplaced fracture at the base of the left fifth metatarsal.
[2024-07-23 09:45] VITALS: BP 135/70; RESP 18; TEMP 97.9
== END 2024-07-23 09:47 | disposition home or self-care (01) ==
LOC: EC 08:34
CPT/HCPCS: 99283

== ENCOUNTER → 2024-09-22 | Outpatient (CLI) | payer MEDICARE, OTHER ==
[2024-09-22 10:21] LABS: ALT 18 U/L (8-44); AST 18 U/L (13-35); Albumin 4.5 g/dL (3.8-4.9); Albumin/Globulin Ratio 2.05 Ratio (1.60-3.17); Alkaline Phosphatase 144 U/L (41-126); BUN/Creat Ratio 27.21 Ratio (12.00-20.00); Blood Urea Nitrogen 51.7 mg/dL (9.0-27.0); Calcium 9.3 mg/dL (8.7-10.3); Carbon Dioxide 19.2 mmol/L (21.6-31.8); Chloride 110 mmol/L (96-109); Globulin 2.2 g/dL (1.6-3.3); Glucose 103 mg/dL (70-110); Potassium 4.6 mmol/L (3.5-5.5); Sodium 143 mmol/L (135-145); Total Bilirubin 0.3 mg/dL (0.3-1.2); Total Protein 6.7 g/dL (6.2-8.2)
== END | disposition home or self-care (01) ==
LOC: LABWHC1 07:18
PROVIDERS: ATTEND Internal Medicine Nephrology
DX: N18.32 Chronic kidney disease, stage 3b (principal)
CPT/HCPCS: 36415; 80053

== ENCOUNTER → 2024-10-06 | Outpatient (CLI) | payer MEDICARE, OTHER ==
--- NOTE | 2024-10-07 14:51 | US ---
EXAMINATION TYPE: US kidneys/renal and bladder DATE OF EXAM: 10/06/2024 COMPARISON: US(12/25/2016) CLINICAL INDICATION: Female, 74 years old with history of N18.32 CKD; N18.3 CKD TECHNIQUE: Grayscale imaging of the bilateral kidneys and urinary bladder: FINDINGS: EXAM MEASUREMENTS: Right Kidney: 10.1x5.0x4.1cm Left Kidney: 9.6x5.6x4.5cm Right Kidney: No hydronephrosis or masses seen Left Kidney: ?anechoic area(mid): 3.1x2.0cm Bladder: wnl Bilateral Jets seen: Yes IMPRESSION: Simple cyst left kidney. [facility], , 10/07/2024 2:48 PM
== END | disposition home or self-care (01) ==
LOC: RADUSWWP 14:06
PROVIDERS: ATTEND Internal Medicine Nephrology
DX: N18.32 Chronic kidney disease, stage 3b (principal); N28.1 Cyst of kidney, acquired
CPT/HCPCS: 76770

== ENCOUNTER 2025-01-26 07:36 | Inpatient (IN) | payer MEDICARE, OTHER ==
[2025-01-26 08:37] LABS: Influenza A Not Detected (Not Detectd); Influenza B Not Detected (Not Detectd); RSV Not Detected (Not Detectd)
--- NOTE | 2025-01-26 09:14 | ED ---
Nausea/Vomiting/Diarrhea HPI - General Chief complaint: Nausea/Vomiting/Diarrhea Stated complaint: Weakness,vomiting Time Seen by Provider: 01/26/25 09:12 Source: patient, RN notes reviewed, old records reviewed Mode of arrival: ambulatory Limitations: no limitations - History of Present Illness Initial comments: Patient is a 74-year-old female presented to the ER for evaluation of nausea. Patient states this been ongoing for the past week. She was seen by urgent care and diagnosed with bronchitis. Patient was started on doxycycline and Zofran. She states she has been taking Zofran twice daily which will improve nausea for approximately 10 minutes and then will return. Patient states she has been having a decreased appetite due to this. She is able to drink ice water but states last night during dinner she tried to take bites of white rice was unable to continue eating given nausea. She denies any vomiting. Patient does admit to recent diarrhea denying any melena or hematochezia. Patient denies any abdominal pain, fevers, chills. Patient states she is a insulin-dependent type II diabetic and is concerned this may be affected given decreased oral intake. She denies any chest pain, shortness of breath, urinary complaints or peripheral edema. - Related Data Home Medications Medication Instructions Recorded Confirmed Glimepiride [Amaryl] 4 mg PO DAILY 02/14/17 01/26/25 Insulin NPH Human Isophane 18 unit SQ BID-W/MEALS 02/14/17 01/26/25 [NovoLIN N] amLODIPine [Norvasc] 10 mg PO DAILY 02/14/17 01/26/25 Insulin Glargine (Lantus) [Lantus 20 unit SQ DAILY 03/10/21 01/26/25 Vial] Levothyroxine Sodium [Synthroid] 75 mcg PO DAILY 03/10/21 01/26/25 Citalopram Hydrobromide [CeleXA] 20 mg PO DAILY 09/07/22 01/26/25 Losartan Potassium 100 mg PO DAILY 09/07/22 01/26/25 Furosemide [Lasix] 20 mg PO DAILY 11/02/22 01/26/25 Acetaminophen [Tylenol Arthritis] 1,300 mg PO Q8H PRN 05/31/23 01/26/25 hydrALAZINE HCL [Apresoline] 100 mg PO TID 05/31/23 01/26/25 ALPRAZolam [Xanax] 0.125 mg PO DIRECTED PRN 01/26/25 01/26/25 Atorvastatin [Lipitor] 40 mg PO HS 01/26/25 01/26/25 Doxycycline Hyclate 100 mg PO BID 01/26/25 01/26/25 Empagliflozin [Jardiance] 25 mg PO DAILY 01/26/25 01/26/25 Ergocalciferol [Vitamin D2 (1250 1,250 mcg PO Q14D 01/26/25 01/26/25 Mcg = 63964 Iu)] Sodium Bicarbonate Tab 650 mg PO DAILY 01/26/25 01/26/25 atenoloL [Tenormin] 50 mg PO DAILY 01/26/25 01/26/25 calcitrioL [Rocaltrol] 0.25 mcg PO DAILY 01/26/25 01/26/25 Previous Rx's Medication Instructions Recorded Spironolactone [Aldactone] 25 mg PO DAILY #30 tab 09/11/22 Allergies Allergy/AdvReac Type Severity Reaction Status Date / Time No Known Allergies Allergy Verified 01/26/25 10:39 Review of Systems ROS Statement: Those systems with pertinent positive or pertinent negative responses have been documented in the HPI. ROS Other: All systems not noted in ROS Statement are negative. Past Medical History Past Medical History: Heart Failure, Diabetes Mellitus, Hyperlipidemia, Hypertension, Osteoarthritis (OA), Thyroid Disorder Additional Past Medical History / Comment(s): "Resting heart rate in 40's @times, chronic back pain, covid infection March 2022, watching kidney function d/t pain medication and potassium. History of Any Multi-Drug Resistant Organisms: None Reported Past Surgical History: Section, Cholecystectomy, Hysterectomy, Tonsillectomy Additional Past Surgical History / Comment(s): COLONOSCOPY, pain procedures, CYST REMOVED FROM NECK AREA. Past Anesthesia/Blood Transfusion Reactions: No Reported Reaction Past Psychological History: No Psychological Hx Reported Smoking Status: Never smoker Past Alcohol Use History: Rare Past Drug Use History: None Reported - Past Family History Mother Family Medical History: Cancer, Hypertension Father Family Medical History: Congestive Heart Failure (CHF) General Exam Limitations: no limitations General appearance: alert, in no apparent distress Respiratory exam: Present: normal lung sounds bilaterally. Absent: respiratory distress, wheezes, rales, rhonchi, stridor Cardiovascular Exam: Present: regular rate, normal rhythm, normal heart sounds. Absent: systolic murmur, diastolic murmur, rubs, gallop, clicks GI/Abdominal exam: Present: soft, normal bowel sounds. Absent: distended, tenderness, guarding, rebound, rigid Extremities exam: Present: normal inspection, full ROM, normal capillary refill. Absent: tenderness, pedal edema, joint swelling, calf tenderness Neurological exam: Present: alert, oriented X3, CN II-XII intact Skin exam: Present: warm, dry, intact, normal color. Absent: rash Course Vital Signs 01/26/25 01/26/25 07:39 11:14 Temperature 98.6 F 98.5 F Pulse Rate 89 67 Respiratory 20 22 Rate Blood Pressure 149/65 O2 Sat by Pulse 99 98 Oximetry - Reevaluation(s) Reevaluation #1: 01/26/25 11:08 Case discussed with sound physician, Dr. Guillermo for admission Medical Decision Making - Medical Decision Making Was pt. sent in by a medical professional or institution (, PA, HALF BACKER, urgent care, hospital, or alf...) When possible be specific @ -No Did you speak to anyone other than the patient for history (EMS, parent, family, police, friend...)? What history was obtained from this source @ -No Did you review nursing and triage notes (agree or disagree)? Why? @ -I reviewed and agree with nursing and triage notes Were old charts reviewed (outside hosp., previous admission, EMS record, old EKG, old radiological studies, urgent care reports/EKG's, alf records)? Report findings @ -No old charts were reviewed Differential Diagnosis (chest pain, altered mental status, abdominal pain women, abdominal pain men, vaginal bleeding, weakness, fever, dyspnea, syncope, headache, dizziness, GI bleed, back pain, seizure, CVA, palpatations, mental health, musculoskeletal)? @ -Gastroenteritis, electrolyte abnormality, renal failure, sepsis, IA, viral illness... This list is not meant to be all-inclusive EKG interpreted by me (3pts min.). @ -As above X-rays interpreted by me (1pt min.). @ -None done CT interpreted by me (1pt min.). @ -None done U/S interpreted by me (1pt. min.). @ -None done What testing was considered but not performed or refused? (CT, X-rays, U/S, labs)? Why? @ -None What meds were considered but not given or refused? Why? @ -None Did you discuss the management of the patient with other professionals (professionals i.e. , PA, HALF BACKER, lab, RT, psych nurse, social science manager, gear cutting machine set up operator, teacher, network security officer, piano case maker)? Give summary @ -Yes, case discussed with hank physician, Dr. Guillermo, for admission. Was smoking cessation discussed for >3mins.? @ -No Was critical care preformed (if so, how long)? @ -No Were there social determinants of health that impacted care today? How? (Homelessness, low income, unemployed, alcoholism, drug addiction, transportation, low edu. Level, literacy, decrease access to med. care, [place] [facility], rehab)? @ -No Was there de-escalation of care discussed even if they declined (Discuss DNR or withdrawal of care, Hospice)? DNR status @ -No What co-morbidities impacted this encounter? (DM, HTN, Smoking, COPD, CAD, Cancer, CVA, ARF, Chemo, Hep., AIDS, mental health diagnosis, sleep apnea, morbid obesity)? @ -Diabetes mellitus, CKD, Heart failure, hyperlipidemia, hypertension, thyroid disorder Was patient admitted / discharged? Hospital course, mention meds given and route, prescriptions, significant lab abnormalities, going to OR and other pertinent info. @ -Admitted. 74-year-old female presented the ER for evaluation of nausea x 1 week.Upon rooming, vitals within acceptable limits. Patient in no signs of acute distress nontoxic-appearing. Workup in the ER remarkable for SUNNY BUN 82, creatinine 3.09, GFR 14. This is worsened from 09-22-2023 with a creatinine of 1.9. Hyperglycemic at 216. Acetone negative. Urinalysis with 3+ glucose and trace protein likely due to diabetes mellitus and dehydration. Viral swabs negative. Patient given IV fluid bolus along with Zofran for symptom control in the emergency department. EKG showing a sinus rhythm with a first-degree AV block. Admission considered and discussed with Hank physician, Dr. Guillermo, for IV fluid treatment of SUNNY, who accepts. Patient started on maintenance fluid at 75 cc/h given history of heart failure. Patient is agreeable for admission. Patient admitted in stable condition. Case discussed with ED attending, Dr. Chong. Undiagnosed new problem with uncertain prognosis? @ -No Drug Therapy requiring intensive monitoring for toxicity (Heparin, Nitro, Insulin, Cardizem)? @ -No Were any procedures done? @ -No Diagnosis/symptom? @ -SUNNY Acute, or Chronic, or Acute on Chronic? @ -Acute Uncomplicated (without systemic symptoms) or Complicated (systemic symptoms)? @ -Complicated Side effects of treatment? @ -No Exacerbation, Progression, or Severe Exacerbation? @ -No Poses a threat to life or bodily function? How? (Chest pain, USA, IA, pneumonia, PE, COPD, DKA, ARF, appy, cholecystitis, CVA, Diverticulitis, Homicidal, Suicidal, threat to staff... and all critical care pts) @ -Possibly - Lab Data Result diagrams: 01/26/25 09:27 01/26/25 09:27 Lab Results 01/26/25 01/26/25 01/26/25 Range/Units 07:43 09:27 09:27 WBC 4.4 (3.8-10.6) k/uL RBC 4.22 (3.80-5.40) m/uL Hgb 12.7 (11.4-16.0) gm/dL Hct 39.9 (34.0-46.0) % MCV 94.4 (80.0-100.0) fL MCH 30.0 (25.0-35.0) pg MCHC 31.7 (31.0-37.0) g/dL RDW 13.4 (11.5-15.5) % Plt Count 152 (150-450) k/uL MPV 9.0 Neutrophils % 70 % Lymphocytes % 16 % Monocytes % 13 % Eosinophils % 0 % Basophils % 0 % Neutrophils # 3.1 (1.3-7.7) k/uL Lymphocytes # 0.7 L (1.0-4.8) k/uL Monocytes # 0.6 (0-1.0) k/uL Eosinophils # 0.0 (0-0.7) k/uL Basophils # 0.0 (0-0.2) k/uL Sodium 134 L (137-145) mmol/L Potassium 4.8 (3.5-5.1) mmol/L Chloride 110 H (98-107) mmol/L Carbon Dioxide 12 L (22-30) mmol/L Anion Gap 12 mmol/L BUN 82 H (7-17) mg/dL Creatinine 3.09 H (0.52-1.04) mg/dL Est GFR (CKD-EPI)AfAm 16 (>60 ml/min/1.73 sqM) Est GFR (CKD-EPI)NonAf 14 (>60 ml/min/1.73 sqM) Glucose 216 H (74-99) mg/dL Plasma Lactic Acid Akil (0.7-2.0) mmol/L Calcium 9.7 (8.4-10.2) mg/dL Magnesium 1.8 (1.6-2.3) mg/dL Total Bilirubin 0.7 (0.2-1.3) mg/dL AST 24 (14-36) U/L ALT 23 (4-34) U/L Alkaline Phosphatase 102 (38-126) U/L Total Protein 6.7 (6.3-8.2) g/dL Albumin 4.3 (3.5-5.0) g/dL Amylase 63 (30-110) U/L Lipase 159 (23-300) U/L Urine Color Urine Appearance (Clear) Urine pH (5.0-8.0) Ur Specific [place] (1.001-1.035) Urine Protein (Negative) Urine Glucose (UA) (Negative) Urine Ketones (Negative) Urine Blood (Negative) Urine Nitrite (Negative) Urine Bilirubin (Negative) Urine Urobilinogen (<2.0) mg/dL Ur Leukocyte Esterase (Negative) Acetone, Qual Negative (Negative) Influenza Type A (PCR) Not Detected (Not Detectd) Influenza Type B (PCR) Not Detected (Not Detectd) RSV (PCR) Not Detected (Not Detectd) SARS-CoV-2 (PCR) Not Detected (Not Detectd) 01/26/25 01/26/25 Range/Units 09:27 10:19 WBC (3.8-10.6) k/uL RBC (3.80-5.40) m/uL Hgb (11.4-16.0) gm/dL Hct (34.0-46.0) % MCV (80.0-100.0) fL MCH (25.0-35.0) pg MCHC (31.0-37.0) g/dL RDW (11.5-15.5) % Plt Count (150-450) k/uL MPV Neutrophils % % Lymphocytes % % Monocytes % % Eosinophils % % Basophils % % Neutrophils # (1.3-7.7) k/uL Lymphocytes # (1.0-4.8) k/uL Monocytes # (0-1.0) k/uL Eosinophils # (0-0.7) k/uL Basophils # (0-0.2) k/uL Sodium (137-145) mmol/L Potassium (3.5-5.1) mmol/L Chloride (98-107) mmol/L Carbon Dioxide (22-30) mmol/L Anion Gap mmol/L BUN (7-17) mg/dL Creatinine (0.52-1.04) mg/dL Est GFR (CKD-EPI)AfAm (>60 ml/min/1.73 sqM) Est GFR (CKD-EPI)NonAf (>60 ml/min/1.73 sqM) Glucose (74-99) mg/dL Plasma Lactic Acid Akil 1.0 (0.7-2.0) mmol/L Calcium (8.4-10.2) mg/dL Magnesium (1.6-2.3) mg/dL Total Bilirubin (0.2-1.3) mg/dL AST (14-36) U/L ALT (4-34) U/L Alkaline Phosphatase (38-126) U/L Total Protein (6.3-8.2) g/dL Albumin (3.5-5.0) g/dL Amylase (30-110) U/L Lipase (23-300) U/L Urine Color Light Yellow Urine Appearance Clear (Clear) Urine pH 5.0 (5.0-8.0) Ur Specific [place] 1.012 (1.001-1.035) Urine Protein Trace H (Negative) Urine Glucose (UA) 3+ H (Negative) Urine Ketones Negative (Negative) Urine Blood Negative (Negative) Urine Nitrite Negative (Negative) Urine Bilirubin Negative (Negative) Urine Urobilinogen <2.0 (<2.0) mg/dL Ur Leukocyte Esterase Negative (Negative) Acetone, Qual (Negative) Influenza Type A (PCR) (Not Detectd) Influenza Type B (PCR) (Not Detectd) RSV (PCR) (Not Detectd) SARS-CoV-2 (PCR) (Not Detectd) - EKG Data -: EKG Interpreted by Me EKG Comments: EKG taken at 9: 22 showing a sinus rhythm with a first-degree AV block. No ST segment elevations or depressions. No T wave inversions. Ventricular rate 69, IL interval 254, QRS duration 105, QT/QTc 389/407. Disposition Clinical Impression: Nausea, SUNNY (acute kidney injury) Disposition: ADMITTED IP TO THIS HOSP Condition: Stable Time of Disposition: 11:08
[2025-01-26] MEDS: SODIUM CHLORIDE 0.9% 1,000 ML IV ONE (09:28)
[2025-01-26] MEDS: ONDANSETRON 4 MG/2 ML VIAL IVP STA (09:35)
[2025-01-26 09:49] LABS: Basophils % (A) 0 %; Eosinophils % (A) 0 %; HCT 39.9 % (34.0-46.0); HGB 12.7 gm/dL (11.4-16.0); Lymphocytes # (A) 0.7 k/uL (1.0-4.8); Lymphocytes % (A) 16 %; MCHC 31.7 g/dL (31.0-37.0); MCV 94.4 fL (80.0-100.0); Monocytes # (A) 0.6 k/uL (0-1.0); Monocytes % (A) 13 %; Neutrophils # (A) 3.1 k/uL (1.3-7.7); Neutrophils % (A) 70 %; Platelet Count 152 k/uL (150-450); RBC 4.22 m/uL (3.80-5.40); RDW 13.4 % (11.5-15.5); WBC 4.4 k/uL (3.8-10.6)
[2025-01-26 10:03] LABS: ALT 23 U/L (4-34); AST 24 U/L (14-36); African American GFR (CKD) 16 (>60 ml/min/1.73 sqM); Albumin 4.3 g/dL (3.5-5.0); Alkaline Phosphatase 102 U/L (38-126); Amylase 63 U/L (30-110); Anion Gap 12 mmol/L; Blood Urea Nitrogen 82 mg/dL (7-17); Calcium 9.7 mg/dL (8.4-10.2); Carbon Dioxide 12 mmol/L (22-30); Chloride 110 mmol/L (98-107); Glucose 216 mg/dL (74-99); Lipase 159 U/L (23-300); Magnesium 1.8 mg/dL (1.6-2.3); Non-African American GFR(CKD) 14 (>60 ml/min/1.73 sqM); Potassium 4.8 mmol/L (3.5-5.1); Sodium 134 mmol/L (137-145); Total Bilirubin 0.7 mg/dL (0.2-1.3); Total Protein 6.7 g/dL (6.3-8.2)
[2025-01-26 10:38] LABS: Appearance,Urine Clear (Clear); Bilirubin,Urine Negative (Negative); Blood,Urine Negative (Negative); Color,Urine Light Yellow; Glucose,Urine (UA) 3+ (Negative); Ketones,Urine Negative (Negative); Leukocyte Esterase,Urine Negative (Negative); Nitrite,Urine Negative (Negative); Protein,Urine Trace (Negative); Specific Gravity,Urine 1.012 (1.001-1.035); Urobilinogen,Urine <2.0 mg/dL (<2.0)
[2025-01-26] MEDS ORDERED: NALOXONE 0.4 MG/ML 1 ML VIAL IV PRN (11:07)
--- NOTE | 2025-01-26 11:46 | US ---
EXAMINATION TYPE: US kidneys/renal and bladder DATE OF EXAM: 01/26/2025 COMPARISON: 10/06/24 CLINICAL INDICATION: Female, 74 years old with history of SUNNY on CKD; TECHNIQUE: Grayscale imaging of the bilateral kidneys and urinary bladder: FINDINGS: EXAM MEASUREMENTS: Right Kidney: 10.7 x 4.6 x 4.9 cm Left Kidney: 9.7 x 4.4 x 5.4 cm Right Kidney: No hydronephrosis or masses seen Left Kidney: No hydronephrosis or masses seen Bladder: wnl Bilateral Jets seen: No There is no evidence for hydronephrosis at this point in time. No nephrolithiasis is seen. No sukhwinder s are identified. The urinary bladder is anechoic. IMPRESSION: Unremarkable study [facility], , 01/26/2025 11:44 AM
[2025-01-26] MEDS: SODIUM CHLORIDE 0.9% 1,000 ML IV SCH (12:22)
--- NOTE | 2025-01-26 16:36 | XR ---
EXAMINATION TYPE: XR chest 1V portable DATE OF EXAM: 01/26/2025 4:05 PM COMPARISON: None. CLINICAL INDICATION: Female, 74 years old with history of Cough, TECHNIQUE: XR chest 1V portable views of the chest are obtained. FINDINGS: Demonstrated are scattered senescent parenchymal change. Increased density in the region of the right middle lobe may reflect developing infiltrate. The heart is stable. Hilar and mediastinal structures are within normal limits. Degenerative changes are seen of the dorsal spine. IMPRESSION: 1. Increased density in the region of the right middle lobe may reflect developing infiltrate. [facility], , 01/26/2025 4:34 PM
[2025-01-26] MEDS ORDERED: MELATONIN 3 MG TABLET PO PRN (18:04)
[2025-01-26] MEDS ORDERED: ACETAMINOPHEN TAB 325 MG TAB PO PRN (18:04)
[2025-01-26] MEDS ORDERED: PNEUMONIA PROTOCOL UTILIZED 1 EACH MISC PO PRN (18:05)
[2025-01-26] MEDS ORDERED: DEXTROSE 50% SYRINGE 50 ML IVP PRN ×2 (18:12)
--- NOTE | 2025-01-26 18:16 | P.HPIM ---
History of Present Illness H&P Date: 01/26/25 74 year old F with PMH of DM, HTN, HLD, Hypothyroid, CKD stage III presents to the ED for intractable N/V for the past week. Unsure of inciting events. Went to urgent care on Sunday and was started on Doxycycline for acute bronchitis. When symptoms did not improve, she presented to the ED. In the ED patient underwent extensive evaluation. BP 149/65, HR 67, T 98.5F, RR 22, 98% on RA. CBC, CMP significant for Na 134, Cl 110, bicarb 12, BUN 82, Cr 3.09, glu 216. Mag 1.8. Lactic acid 1. UA 3+ glucose. Acetone neg. Amylase and Lipase wnl. COVID, RSV, Flu neg. EKG sinus rhythm with first degree AV block, incomplete RBBB, Q waves in V1-4. Patient is admitted for SUNNY on CKD. General: non toxic, no distress, appears at stated age Derm: warm, dry Head: atraumatic, normocephalic, symmetric Mouth: no lip lesion, mucus membranes moist Cardiovascular: S1S2 reg, no murmur Lungs: Decreased BS BL, no rales , no accessory muscle use Ext: no gross muscle atrophy, no edema, no contractures Neuro: no focal neuro deficits Psych: Alert and oriented. Based on my assessment of this patient, this patient meets a high complexity level of care. SUNNY on CKD stage III with metabolic acidosis: Likely prerenal. Obtain renal/bladder US. Calcitriol 0.25 mg PO QD. Sodium bicarbonate 650 mg PO QD. Hold Jardiance, Lasix, Losartan, Aldactone. Started on NS at 75 cc/hr. Nephrology consulted. Community acquired PNA: Rocephin 2g IV QD + Azithromycin 500 mg PO QD. Obtain sputum Cx + Legionella. Does not meet sepsis criteria. DM: Lantus 20 units SQ QD. ISS with Accuchecks ACHS and hypoglycemic precautions. HTN: Amlodipine 10 mg PO QD. Atenolol 50 mg PO QD. HLD: Lipitor 40 mg PO QHS. Hypothyroid: Synthroid 75 mcg PO QD. Depression: Celexa 20 mg PO QD. CODE STATUS: FULL CODE. DVT Prophylaxis: Heparin SQ GI Prophylaxis: Designated medical POA if patient is not able to make medical decisions for themselves: Sons I have reviewed the following learning consultant notes: ED note I have reviewed the results of the following tests: As above I have ordered the following tests: As above I have discussed the care of this patient with the following independent historian: I have independently interpreted the following test below: CXR I have discussed the management of this patient with the following physician: Past Medical History Past Medical History: Heart Failure, Diabetes Mellitus, Hyperlipidemia, Hypertension, Osteoarthritis (OA), Thyroid Disorder Additional Past Medical History / Comment(s): "Resting heart rate in 40's @times, chronic back pain, covid infection March 2022, watching kidney function d/t pain medication and potassium. History of Any Multi-Drug Resistant Organisms: None Reported Past Surgical History: Section, Cholecystectomy, Hysterectomy, Tonsillectomy Additional Past Surgical History / Comment(s): COLONOSCOPY, pain procedures, CYST REMOVED FROM NECK AREA. Past Anesthesia/Blood Transfusion Reactions: No Reported Reaction Past Psychological History: No Psychological Hx Reported Smoking Status: Never smoker Past Alcohol Use History: Rare Past Drug Use History: None Reported - Past Family History Mother Family Medical History: Cancer, Hypertension Father Family Medical History: Congestive Heart Failure (CHF) Medications and Allergies Home Medications Medication Instructions Recorded Confirmed Type Glimepiride [Amaryl] 4 mg PO DAILY 02/14/17 01/26/25 History Insulin NPH Human Isophane 18 unit SQ BID-W/MEALS 02/14/17 01/26/25 History [NovoLIN N] amLODIPine [Norvasc] 10 mg PO DAILY 02/14/17 01/26/25 History Insulin Glargine (Lantus) [Lantus 20 unit SQ DAILY 03/10/21 01/26/25 History Vial] Levothyroxine Sodium [Synthroid] 75 mcg PO DAILY 03/10/21 01/26/25 History Citalopram Hydrobromide [CeleXA] 20 mg PO DAILY 09/07/22 01/26/25 History Losartan Potassium 100 mg PO DAILY 09/07/22 01/26/25 History Spironolactone [Aldactone] 25 mg PO DAILY #30 tab 09/11/22 01/26/25 Rx Furosemide [Lasix] 20 mg PO DAILY 11/02/22 01/26/25 History Acetaminophen [Tylenol Arthritis] 1,300 mg PO Q8H PRN 05/31/23 01/26/25 History hydrALAZINE HCL [Apresoline] 100 mg PO TID 05/31/23 01/26/25 History ALPRAZolam [Xanax] 0.125 mg PO DIRECTED PRN 01/26/25 01/26/25 History Atorvastatin [Lipitor] 40 mg PO HS 01/26/25 01/26/25 History Doxycycline Hyclate 100 mg PO BID 01/26/25 01/26/25 History Empagliflozin [Jardiance] 25 mg PO DAILY 01/26/25 01/26/25 History Ergocalciferol [Vitamin D2 (1250 1,250 mcg PO Q14D 01/26/25 01/26/25 History Mcg = 96599 Iu)] Sodium Bicarbonate Tab 650 mg PO DAILY 01/26/25 01/26/25 History atenoloL [Tenormin] 50 mg PO DAILY 01/26/25 01/26/25 History calcitrioL [Rocaltrol] 0.25 mcg PO DAILY 01/26/25 01/26/25 History Allergies Allergy/AdvReac Type Severity Reaction Status Date / Time No Known Allergies Allergy Verified 01/26/25 10:39 Physical Exam Vitals: Vital Signs Temp Pulse Resp BP Pulse Ox 01/26/25 11:14 98.5 F 67 22 149/65 98 01/26/25 07:39 98.6 F 89 20 99 Intake and Output 01/26/25 01/26/25 01/26/25 06:59 14:59 22:59 Other: Weight 81.647 kg Results CBC & Chem 7: 01/26/25 09:27 01/26/25 09:27 Labs: Abnormal Lab Results - Last 24 Hours (Table) 01/26/25 01/26/25 01/26/25 Range/Units 09:27 09:27 10:19 Lymphocytes # 0.7 L (1.0-4.8) k/uL Sodium 134 L (137-145) mmol/L Chloride 110 H (98-107) mmol/L Carbon Dioxide 12 L (22-30) mmol/L BUN 82 H (7-17) mg/dL Creatinine 3.09 H (0.52-1.04) mg/dL Glucose 216 H (74-99) mg/dL Urine Protein Trace H (Negative) Urine Glucose (UA) 3+ H (Negative)
[2025-01-26 19:07] LABS: Glucose,Whole Blood 273 mg/dL (70-110)
[2025-01-26] MEDS: SODIUM BICARBONATE TAB 650 MG TAB PO SCH (19:07)
[2025-01-26] MEDS: AZITHROMYCIN 500 MG in SODIUM CHLORIDE 0.9% 250 ML IVPB STA (19:08)
[2025-01-26 20:30] LABS: Glucose,Whole Blood 281 mg/dL (70-110)
[2025-01-26] MEDS: hydrALAZINE HCL 50 MG TAB PO SCH (20:34)
[2025-01-26] MEDS: ONDANSETRON 4 MG/2 ML VIAL IVP PRN (20:34)
[2025-01-26] MEDS: ATORVASTATIN 40 MG TAB PO SCH (20:34)
[2025-01-26] MEDS: HEPARIN SODIUM,PORCINE 5,000 UNIT/ML 1 ML VIAL SQ SCH (20:34)
[2025-01-26] MEDS: INSULIN LISPRO (HumaLOG) 100 UNIT/ML 10 mL VL SQ SCH (20:39)
[2025-01-27 06:21] LABS: Basophils % (A) 0 %; Eosinophils % (A) 0 %; HCT 37.4 % (34.0-46.0); HGB 11.8 gm/dL (11.4-16.0); Lymphocytes # (A) 1.7 k/uL (1.0-4.8); Lymphocytes % (A) 30 %; MCH 29.7 pg (25.0-35.0); MCHC 31.6 g/dL (31.0-37.0); Mean Platelet Volume 8.5; Monocytes # (A) 0.8 k/uL (0-1.0); Monocytes % (A) 14 %; Neutrophils # (A) 3.1 k/uL (1.3-7.7); Neutrophils % (A) 54 %; Platelet Count 168 k/uL (150-450); RBC 3.97 m/uL (3.80-5.40); RDW 13.4 % (11.5-15.5); WBC 5.7 k/uL (3.8-10.6)
[2025-01-27 06:33] LABS: Glucose,Whole Blood 185 mg/dL (70-110)
[2025-01-27 06:39] LABS: African American GFR (CKD) 26 (>60 ml/min/1.73 sqM); Anion Gap 10 mmol/L; Blood Urea Nitrogen 63 mg/dL (7-17); Calcium 9.3 mg/dL (8.4-10.2); Carbon Dioxide 11 mmol/L (22-30); Chloride 117 mmol/L (98-107); Glucose 179 mg/dL (74-99); Magnesium 1.8 mg/dL (1.6-2.3); Non-African American GFR(CKD) 22 (>60 ml/min/1.73 sqM); Potassium 4.2 mmol/L (3.5-5.1); Sodium 138 mmol/L (137-145)
[2025-01-27] MEDS: LEVOTHYROXINE 75 MCG TAB PO SCH (06:50)
[2025-01-27] MEDS ORDERED: IPRATROPIUM-ALBUTEROL 3 ML NEB INHALATION PRN (08:42)
[2025-01-27] MEDS: atenoloL 50 MG TAB PO SCH (09:00)
[2025-01-27] MEDS: CITALOPRAM HYDROBROMIDE 20 MG TAB PO SCH (09:00)
[2025-01-27] MEDS: amLODIPine 10 MG TAB PO SCH (09:00)
[2025-01-27] MEDS: INSULIN GLARGINE (LANTUS) 100 UNIT/ML SYR SQ SCH (09:13)
[2025-01-27] MEDS: IPRATROPIUM-ALBUTEROL 3 ML NEB INHALATION SCH (11:38)
[2025-01-27] MEDS ORDERED: ALBUTEROL NEBULIZED 2.5 MG/3 ML INHALATION PRN (11:42)
[2025-01-27] MEDS ORDERED: PROCHLORPERAZINE INJ 10 MG/2 ML VIAL IVP PRN (12:04)
[2025-01-27 12:05] LABS: Glucose,Whole Blood 251 mg/dL (70-110)
[2025-01-27] MEDS: DEXTROSE 5% IN WATER 1,000 ML with SODIUM BICARB (1 MEQ/ML) 150 ML IV SCH (12:06)
--- NOTE | 2025-01-27 12:09 | P.PN ---
Subjective Progress Note Date: 01/27/25 Hospital course: Patient is a pleasant 74-year-old female with a past medical history of hypertension, hyperlipidemia, hypothyroidism, type II insulin-dependent diabetes mellitus, chronic bradycardia, and chronic diastolic heart failure. She presented to the hospital on 01/26/2025 secondary to intractable nausea and vomiting x 1 week after recent diagnosis of acute bronchitis. Upon arrival to our facility, patient underwent evaluation in the emergency department. Vital signs upon arrival show blood pressure 149/65, heart rate 67, respiratory rate 22, temp 98.5 F, and SpO2 of 98% on room air. EKG was completed showing normal sinus rhythm at 69 bpm with a first-degree AV block with [place] interval of 254 ms, incomplete right bundle branch block, and T wave inversion in lateral lead I and aVL. (T wave inversion unchanged when compared to EKGs dating back to 2017). Chest x-ray completed showing increased density in the region of the right middle lobe concerning for developing infiltrate/pneumonia. Labs completed and reviewed. CBC was unremarkable. BMP showing sodium 134 metabolic acidosis with chloride of 110, bicarb of 12, and elevated anion gap of 12 with an acute kidney injury with BUN of 82, creatinine 3.09, GFR 14. Blood glucose 216. Lactic acid was 1.0. Magnesium 1.8. Liver profile unremarkable. Urinalysis positive for protein and glucose negative for infection. Urine acetone is negative. Influenza A, influenza B, RSV, and COVID PCR negative. Patient admitted under our services with consultation to nephrology for acute kidney injury on chronic kidney disease. Ultrasound kidneys/ureters/bladder unremarkable reporting no evidence for hydronephrosis or nephrolithiasis and anechoic urinary bladder. Physical exam: Patient seen and fully evaluated at bedside this morning. She reports continued nausea but denies any further episodes of vomiting. Vital signs reviewed and stable. General: Nontoxic, no distress and appears stated age. Derm: Skin warm and dry, normal coloration for ethnicity. Head: Atraumatic, normocephalic and symmetric. Eyes: EOM's intact, no lid lag, and anicteric sclera Mouth: no lip lesions, mucus membranes moist Cardiovascular: regular rate and rhythm with normal S1S2, no murmur, positive posterior tibial pulses bilaterally, and cap refill < 2 seconds. Lungs: Respirations even, regular, and unlabored on room air. Lungs CTA bilaterally, no rhonchi, no rales, no wheezing, and no accessory muscle usage. Abdominal: soft, nontender to palpation, no guarding, no appreciable organomegaly Ext: ROM intact. No gross muscle atrophy, no edema, no contractures Neuro: Speech clear, face symmetrical and CN II-XII grossly intact with no noted focal neuro deficits Psych: Alert and oriented to person, place, time, and situation. Appropriate and pleasant affect. Assessment and Plan of Care: Acute kidney injury on chronic kidney disease stage IIIb, likely secondary to dehydration resulting from intractable nausea and vomiting High anion gap metabolic acidosis -Continue antiemetics with Zofran 4 mg IVP every 8 hours as needed for nausea and vomiting and added on Compazine 10 mg IVP every 6 hours for persistent nausea. -Continue gentle IV fluid hydration with 0.9% normal saline at 75 cc/h and sodium bicarb 650 mg daily. -Nephrology following, appreciate recommendations. -Hold losartan, Lasix and Aldactone.. Community acquired pneumonia -Continue Rocephin 2 g daily and a Zithromax 500 mg daily. -DuoNebs scheduled 4 times daily and as needed for wheezing/shortness of breath. -Tylenol 650 mg every 6 hours as needed for mild pain/fever. Insulin-dependent diabetes mellitus with hyperglycemia -Hold Jardiance and glimepiride. Continue Lantus 20 units daily and placed patient on glycemic protocol with Humalog sliding scale. Hypertension -Monitor vital signs and continue amlodipine 10 mg daily, atenolol 50 mg daily, and hydralazine 100 mg 3 times daily. Losartan held secondary to SUNNY. Hypothyroidism -Continue levothyroxine 75 mcg daily. Hyperlipidemia -Continue atorvastatin 40 mg nightly. Data and imaging reviewed: -Morning labs reviewed. CBC unremarkable. BMP showing improvement of high anion gap metabolic acidosis with chloride of 117, bicarb of 11, and anion gap of 10. Renal function also improving with BUN of 63, creatinine of 2.12, GFR of 22. Magnesium 1.8. Blood glucose 179. -Vital signs reviewed. Blood pressure 150/76, heart rate 76, respiratory rate 18, temp 98.0 F, and SpO2 of 96% on room air. CODE STATUS: Full code DVT prophylaxis: Heparin Anticipated discharge date: Likely 24 hours, getting repeat morning labs/improvement of renal function Anticipated discharge place: Home Patient was seen independently by Nurse Pracitioner. This document was prepared using [employer] dictation software. Please allow for errors in atomic process engineer, while rare they do occur. Felice Shabazz DIESEL MAINTENANCE ELECTRICIAN rendered care for this patient independently, reviewed the findings and plan as documented in the note above and agree with plan. I did not physically speak with or examine the patient on this date. Objective - Vital Signs Vital signs: Vital Signs Temp 98.0 F 01/27/25 02:00 Pulse 85 01/27/25 02:00 Resp 20 01/27/25 02:00 BP 169/74 01/27/25 02:00 Pulse Ox 96 01/27/25 02:00 FiO2 Intake & Output 01/26/25 01/27/25 01/27/25 18:59 06:59 18:59 Intake Total 500 Balance 500 Weight 81.647 kg Intake: Oral 500 Other: Voiding Method Toilet # Voids 2 - Labs CBC & Chem 7: 01/27/25 05:59 01/27/25 05:59 Labs: Abnormal Lab Results - Last 24 Hours (Table) 01/26/25 01/26/25 01/26/25 Range/Units 09:27 09:27 10:19 Lymphocytes # 0.7 L (1.0-4.8) k/uL Sodium 134 L (137-145) mmol/L Chloride 110 H (98-107) mmol/L Carbon Dioxide 12 L (22-30) mmol/L BUN 82 H (7-17) mg/dL Creatinine 3.09 H (0.52-1.04) mg/dL Glucose 216 H (74-99) mg/dL POC Glucose (mg/dL) (70-110) mg/dL Urine Protein Trace H (Negative) Urine Glucose (UA) 3+ H (Negative) 01/26/25 01/26/25 01/27/25 Range/Units 18:58 20:28 05:59 Lymphocytes # (1.0-4.8) k/uL Sodium (137-145) mmol/L Chloride 117 H (98-107) mmol/L Carbon Dioxide 11 L (22-30) mmol/L BUN 63 H (7-17) mg/dL Creatinine 2.12 H (0.52-1.04) mg/dL Glucose 179 H (74-99) mg/dL POC Glucose (mg/dL) 273 H 281 H (70-110) mg/dL Urine Protein (Negative) Urine Glucose (UA) (Negative) 01/27/25 Range/Units 06:32 Lymphocytes # (1.0-4.8) k/uL Sodium (137-145) mmol/L Chloride (98-107) mmol/L Carbon Dioxide (22-30) mmol/L BUN (7-17) mg/dL Creatinine (0.52-1.04) mg/dL Glucose (74-99) mg/dL POC Glucose (mg/dL) 185 H (70-110) mg/dL Urine Protein (Negative) Urine Glucose (UA) (Negative)
[2025-01-27] MEDS: PROCHLORPERAZINE INJ 10 MG/2 ML VIAL IVP STA (12:12)
--- NOTE | 2025-01-27 16:30 | P.NPCON ---
History of Present Illness - Reason for Consult acute renal failure - History of Present Illness Patient is a 74-year-old female with history of hypertension, type 2 diabetes who is admitted to the hospital with complaints of nausea and vomiting and decreased oral intake for about 5 to 6 days prior to admission. Patient had a few episodes of diarrhea. Underlying history of chronic kidney disease stage IIIb secondary to diabetic kidney disease. Most recent creatinine 1.7 in November 2024 Labs on admission showed serum creatinine of 3.0 which has improved to 2.1 today. Patient was also noted to have significant metabolic acidosis with CO2 of 11. No hypotension noted. Patient has been voiding. Maintained on Lasix and losartan at home, currently on hold. Past Medical History Past Medical History: Heart Failure, Diabetes Mellitus, Hyperlipidemia, Hypertension, Osteoarthritis (OA), Thyroid Disorder Additional Past Medical History / Comment(s): "Resting heart rate in 30's-40's @times, chronic back pain, covid infection March 2022, CKD stage 3 History of Any Multi-Drug Resistant Organisms: None Reported Past Surgical History: Section, Cholecystectomy, Hysterectomy, Tonsi llectomy Additional Past Surgical History / Comment(s): COLONOSCOPY, pain procedures, CYST REMOVED FROM NECK AREA. Past Anesthesia/Blood Transfusion Reactions: No Reported Reaction Smoking Status: Never smoker - Past Family History Mother Family Medical History: Cancer, Hypertension Father Family Medical History: Congestive Heart Failure (CHF) Medications and Allergies Home Medications Medication Instructions Recorded Confirmed Type Glimepiride [Amaryl] 4 mg PO DAILY 02/14/17 01/26/25 History Insulin NPH Human Isophane 18 unit SQ BID-W/MEALS 02/14/17 01/26/25 History [NovoLIN N] amLODIPine [Norvasc] 10 mg PO DAILY 02/14/17 01/26/25 History Insulin Glargine (Lantus) [Lantus 20 unit SQ DAILY 03/10/21 01/26/25 History Vial] Levothyroxine Sodium [Synthroid] 75 mcg PO DAILY 03/10/21 01/26/25 History Citalopram Hydrobromide [CeleXA] 20 mg PO DAILY 09/07/22 01/26/25 History Losartan Potassium 100 mg PO DAILY 09/07/22 01/26/25 History Spironolactone [Aldactone] 25 mg PO DAILY #30 tab 09/11/22 01/26/25 Rx Furosemide [Lasix] 20 mg PO DAILY 11/02/22 01/26/25 History Acetaminophen [Tylenol Arthritis] 1,300 mg PO Q8H PRN 05/31/23 01/26/25 History hydrALAZINE HCL [Apresoline] 100 mg PO TID 05/31/23 01/26/25 History ALPRAZolam [Xanax] 0.125 mg PO DIRECTED PRN 01/26/25 01/26/25 History Atorvastatin [Lipitor] 40 mg PO HS 01/26/25 01/26/25 History Doxycycline Hyclate 100 mg PO BID 01/26/25 01/26/25 History Empagliflozin [Jardiance] 25 mg PO DAILY 01/26/25 01/26/25 History Ergocalciferol [Vitamin D2 (1250 1,250 mcg PO Q14D 01/26/25 01/26/25 History Mcg = 22554 Iu)] Sodium Bicarbonate Tab 650 mg PO DAILY 01/26/25 01/26/25 History atenoloL [Tenormin] 50 mg PO DAILY 01/26/25 01/26/25 History calcitrioL [Rocaltrol] 0.25 mcg PO DAILY 01/26/25 01/26/25 History Allergies Allergy/AdvReac Type Severity Reaction Status Date / Time No Known Allergies Allergy Verified 01/26/25 10:39 Physical Exam Vitals: Vital Signs Temp Pulse Pulse Resp BP BP Pulse Ox 01/27/25 15:00 45 L 18 165/69 98 01/27/25 08:00 76 18 150/76 96 01/27/25 02:00 98.0 F 85 20 169/74 96 01/26/25 23:25 99.0 F 65 16 130/56 96 01/26/25 19:37 98.5 F 67 16 150/73 97 01/26/25 18:00 98.1 F 75 22 136/76 96 Intake and Output 01/27/25 01/27/25 01/27/25 06:59 14:59 22:59 Intake Total 500 Balance 500 Intake: Oral 500 Other: Voiding Method Toilet # Voids 2 3 Weight 81.647 kg Patient is awake, comfortable, no acute distress Alert oriented x 3 Examination of the heart S1 and S2 Examination of the lungs bilateral breath sounds are heard Abdomen is soft nontender Examination of lower extremities shows no evidence of edema ADVANCED CLINICAL SPECIALIST exam grossly intact Results - Lab Results Most recent lab results Calcium 9.3 mg/dL (8.4-10.2) 01/27/25 05:59 Magnesium 1.8 mg/dL (1.6-2.3) 01/27/25 05:59 01/27/25 05:59 01/27/25 05:59 Assessment and Plan Assessment: 1. Acute kidney injury, associated with severe volume depletion, improving with IV hydration. Check and UA check ultrasound of the kidneys. 2. [place] metabolic acidosis associated with diarrhea and GI fluid loss as well as acute kidney injury 3. History of hypertension, losartan on hold 4. Type 2 diabetes 5. 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 Baseline creatinine around 1.7 as of 12/08/2024 6. CKD mineral bone disorder maintained on calcitriol, calcium is 9.3 Plan: Continue with IV fluids Change IV fluids to IV bicarb Continue to hold angiotensin receptor blockers and diuretics Repeat labs in a.m. Check UA and check ultrasound of the kidneys May continue with calcitriol Thank you for the consultation. We will continue to follow the patient with you during her hospitalization.
[2025-01-27 17:19] LABS: Glucose,Whole Blood 280 mg/dL (70-110)
[2025-01-27] MEDS: AZITHROMYCIN 500 MG TAB PO SCH (17:26)
[2025-01-27 20:02] LABS: Glucose,Whole Blood 233 mg/dL (70-110)
[2025-01-27 20:35] LABS: Appearance,Urine Clear (Clear); Bilirubin,Urine Negative (Negative); Blood,Urine Negative (Negative); Color,Urine Yellow; Glucose,Urine (UA) 2+ (Negative); Ketones,Urine Negative (Negative); Leukocyte Esterase,Urine Negative (Negative); Nitrite,Urine Negative (Negative); Protein,Urine Trace (Negative); Specific Gravity,Urine 1.015 (1.001-1.035); Urobilinogen,Urine <2.0 mg/dL (<2.0)
[2025-01-28 06:06] LABS: Glucose,Whole Blood 195 mg/dL (70-110)
[2025-01-28 06:12] LABS: HCT 31.3 % (34.0-46.0); HGB 10.8 gm/dL (11.4-16.0); MCH 31.2 pg (25.0-35.0); MCHC 34.6 g/dL (31.0-37.0); MCV 90.2 fL (80.0-100.0); Mean Platelet Volume 8.6; Platelet Count 135 k/uL (150-450); RBC 3.47 m/uL (3.80-5.40); RDW 13.2 % (11.5-15.5)
[2025-01-28 06:28] LABS: African American GFR (CKD) 29 (>60 ml/min/1.73 sqM); Anion Gap 6 mmol/L; Blood Urea Nitrogen 59 mg/dL (7-17); Calcium 8.9 mg/dL (8.4-10.2); Carbon Dioxide 18 mmol/L (22-30); Chloride 112 mmol/L (98-107); Glucose 175 mg/dL (74-99); Magnesium 1.7 mg/dL (1.6-2.3); Non-African American GFR(CKD) 25 (>60 ml/min/1.73 sqM); Potassium 3.6 mmol/L (3.5-5.1); Sodium 136 mmol/L (137-145)
--- NOTE | 2025-01-28 10:34 | P.PN ---
Subjective Patient is seen for follow-up for acute kidney injury and chronic kidney disease. Currently maintained on IV fluids. Renal function is improving. Overall patient is feeling better. She states she was able to tolerate oral intake. Serum creatinine down to 1.9 mg/dL Metabolic acidosis has improved Objective - Vital Signs Vital signs: Vital Signs Temp 99.4 F 01/28/25 07:00 Pulse 50 L 01/28/25 07:00 Resp 16 01/28/25 07:00 BP 131/57 01/28/25 07:00 Pulse Ox 97 01/28/25 07:00 FiO2 Intake & Output 01/27/25 01/28/25 01/28/25 18:59 06:59 18:59 Weight 81.647 kg Other: # Voids 3 2 - Exam Patient is awake, comfortable, no acute distress Alert oriented x 3 Examination of the heart S1 and S2 Examination of the lungs bilateral breath sounds are heard Abdomen is soft nontender Examination of lower extremities shows no evidence of edema PEOPLE MANAGER exam grossly intact - Labs CBC & Chem 7: 01/28/25 05:48 01/28/25 05:48 Labs: Abnormal Lab Results - Last 24 Hours (Table) 01/27/25 01/27/25 01/27/25 Range/Units 12:04 17:18 19:54 RBC (3.80-5.40) m/uL Hgb (11.4-16.0) gm/dL Hct (34.0-46.0) % Plt Count (150-450) k/uL Sodium (137-145) mmol/L Chloride (98-107) mmol/L Carbon Dioxide (22-30) mmol/L BUN (7-17) mg/dL Creatinine (0.52-1.04) mg/dL Glucose (74-99) mg/dL POC Glucose (mg/dL) 251 H 280 H (70-110) mg/dL Urine Protein Trace H (Negative) Urine Glucose (UA) 2+ H (Negative) 01/27/25 01/28/25 01/28/25 Range/Units 20:01 05:48 05:48 RBC 3.47 L (3.80-5.40) m/uL Hgb 10.8 L (11.4-16.0) gm/dL Hct 31.3 L (34.0-46.0) % Plt Count 135 L (150-450) k/uL Sodium 136 L (137-145) mmol/L Chloride 112 H (98-107) mmol/L Carbon Dioxide 18 L (22-30) mmol/L BUN 59 H (7-17) mg/dL Creatinine 1.90 H (0.52-1.04) mg/dL Glucose 175 H (74-99) mg/dL POC Glucose (mg/dL) 233 H (70-110) mg/dL Urine Protein (Negative) Urine Glucose (UA) (Negative) 01/28/25 Range/Units 06:04 RBC (3.80-5.40) m/uL Hgb (11.4-16.0) gm/dL Hct (34.0-46.0) % Plt Count (150-450) k/uL Sodium (137-145) mmol/L Chloride (98-107) mmol/L Carbon Dioxide (22-30) mmol/L BUN (7-17) mg/dL Creatinine (0.52-1.04) mg/dL Glucose (74-99) mg/dL POC Glucose (mg/dL) 195 H (70-110) mg/dL Urine Protein (Negative) Urine Glucose (UA) (Negative) Assessment and Plan Assessment: 1. Acute kidney injury, associated with severe volume depletion, improving with IV hydration. UA is benign. Ultrasound shows no evidence of obstruction. 2. [place] metabolic acidosis associated with diarrhea and GI fluid loss as well as acute kidney injury 3. History of hypertension, losartan on hold 4. Type 2 diabetes 5. 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 Baseline creatinine around 1.7 as of 12/08/2024 6. CKD mineral bone disorder maintained on calcitriol, calcium is 9.3 Plan: Continue with IV bicarb Continue to hold angiotensin receptor blockers and diuretics Repeat labs in a.m. May continue with calcitriol
[2025-01-28 11:30] LABS: Glucose,Whole Blood 242 mg/dL (70-110)
--- NOTE | 2025-01-28 12:03 | P.PN ---
Subjective Progress Note Date: 01/28/25 Hospital course: Patient is a pleasant 74-year-old female with a past medical history of hypertension, hyperlipidemia, hypothyroidism, type II insulin-dependent diabetes mellitus, chronic bradycardia, and chronic diastolic heart failure. She presented to the hospital on 01/26/2025 secondary to intractable nausea and vomiting x 1 week after recent diagnosis of acute bronchitis. Upon arrival to our facility, patient underwent evaluation in the emergency department. Vital signs upon arrival show blood pressure 149/65, heart rate 67, respiratory rate 22, temp 98.5 F, and SpO2 of 98% on room air. EKG was completed showing normal sinus rhythm at 69 bpm with a first-degree AV block with [place] interval of 254 ms, incomplete right bundle branch block, and T wave inversion in lateral lead I and aVL. (T wave inversion unchanged when compared to EKGs dating back to 2017). Chest x-ray completed showing increased density in the region of the right middle lobe concerning for developing infiltrate/pneumonia. Labs completed and reviewed. CBC was unremarkable. BMP showing sodium 134 metabolic acidosis with chloride of 110, bicarb of 12, and elevated anion gap of 12 with an acute kidney injury with BUN of 82, creatinine 3.09, GFR 14. Blood glucose 216. Lactic acid was 1.0. Magnesium 1.8. Liver profile unremarkable. Urinalysis positive for protein and glucose negative for infection. Urine acetone is negative. Influenza A, influenza B, RSV, and COVID PCR negative. Patient admitted under our services with consultation to nephrology for acute kidney injury on chronic kidney disease. Ultrasound kidneys/ureters/bladder unremarkable reporting no evidence for hydronephrosis or nephrolithiasis and anechoic urinary bladder. Physical exam: Patient seen and fully evaluated at bedside this morning. She reports feeling much better this morning. She denies having any nausea or vomiting, reports her appetite has improved and denies having any headache, lightheadedness, dizziness, chest pain, palpitations, shortness of breath, or any other complaints at this time. Vital signs reviewed and stable. General: Nontoxic, no distress and appears stated age. Derm: Skin warm and dry, normal coloration for ethnicity. Head: Atraumatic, normocephalic and symmetric. Eyes: EOM's intact, no lid lag, and anicteric sclera Mouth: no lip lesions, mucus membranes moist Cardiovascular: regular rate and rhythm with normal S1S2, no murmur, positive posterior tibial pulses bilaterally, and cap refill < 2 seconds. Lungs: Respirations even, regular, and unlabored on room air. Lungs CTA bilat erally, no rhonchi, no rales, no wheezing, and no accessory muscle usage. Abdominal: soft, nontender to palpation, no guarding, no appreciable organomegaly Ext: ROM intact. No gross muscle atrophy, no edema, no contractures Neuro: Speech clear, face symmetrical and CN II-XII grossly intact with no noted focal neuro deficits Psych: Alert and oriented to person, place, time, and situation. Appropriate and pleasant affect. Assessment and Plan of Care: Acute kidney injury on chronic kidney disease stage IIIb, likely secondary to de hydration resulting from intractable nausea and vomiting High anion gap metabolic acidosis Bicytopenia -Continue antiemetics with Zofran 4 mg IVP every 8 hours as needed for nausea and Compazine 10 mg IVP if needed every 6 hours for persistent nausea. -Continue bicarb infusion at 80 cc/h and sodium bicarb tablet 650 mg daily. -Nephrology following, discussed plan of care with Dr. Miller recommending continuation of bicarb infusion for an additional 24 hours with possible disch arge tomorrow. -Hold losartan, Lasix and Aldactone.. Community acquired pneumonia -Continue Rocephin 2 g daily and a Zithromax 500 mg daily. -DuoNebs scheduled 4 times daily and as needed for wheezing/shortness of breath. -Tylenol 650 mg every 6 hours as needed for mild pain/fever. Asymptomatic bradycardia -Patient has had a documented heart rate of 60 this morning and overnight was as low as 45. Patient asymptomatic reports feeling great this morning. Order placed for EKG and patient to be placed on continuous telemetry monitoring. Insulin-dependent diabetes mellitus with hyperglycemia -Hold Jardiance and glimepiride. Continue Lantus 20 units daily and placed pa tient on glycemic protocol with Humalog sliding scale. Hypertension -Monitor vital signs and continue amlodipine 10 mg daily, atenolol 50 mg daily, and hydralazine 100 mg 3 times daily. Losartan held secondary to SUNNY. Hypothyroidism -Continue levothyroxine 75 mcg daily. Hyperlipidemia -Continue atorvastatin 40 mg nightly. Data and imaging reviewed: -Morning labs reviewed. CBC showing bicytopenia with hemoglobin of 10.8 and platelet count of 135. BMP showing metabolic acidosis with chloride of 112, 18 and anion gap of 6 and improvement of renal function with BUN of 59, creatinine 1.90, GFR of 25. Blood glucose 175. Magnesium slightly low at 1.7. -Vital signs reviewed. Blood pressure 131/57, heart rate 50, respiratory rate 16, temp 99.4 F, and SpO2 of 97% on room air. CODE STATUS: Full code DVT prophylaxis: Heparin Anticipated discharge date: Likely 24 hours, getting repeat morning labs/improvement of renal function Anticipated discharge place: Home Patient was seen independently by Nurse Pracitioner. This document was prepared using [employer] dictation software. Please allow for errors in wetlands technician, while rare they do occur. Felice Shabazz NP rendered care for this patient independently, reviewed the findings and plan as documented in the note above and agree with plan. I did not physically speak with or examine the patient on this date. Objective - Vital Signs Vital signs: Vital Signs Temp 99.4 F 01/28/25 07:00 Pulse 50 L 01/28/25 07:00 Resp 16 01/28/25 07:00 BP 131/57 01/28/25 07:00 Pulse Ox 97 01/28/25 07:00 FiO2 Intake & Output 01/27/25 01/28/25 01/28/25 18:59 06:59 18:59 Weight 81.647 kg Other: # Voids 3 2 - Labs CBC & Chem 7: 01/28/25 05:48 01/28/25 05:48 Labs: Abnormal Lab Results - Last 24 Hours (Table) 01/27/25 01/27/25 01/27/25 Range/Units 12:04 17:18 19:54 RBC (3.80-5.40) m/uL Hgb (11.4-16.0) gm/dL Hct (34.0-46.0) % Plt Count (150-450) k/uL Sodium (137-145) mmol/L Chloride (98-107) mmol/L Carbon Dioxide (22-30) mmol/L BUN (7-17) mg/dL Creatinine (0.52-1.04) mg/dL Glucose (74-99) mg/dL POC Glucose (mg/dL) 251 H 280 H (70-110) mg/dL Urine Protein Trace H (Negative) Urine Glucose (UA) 2+ H (Negative) 01/27/25 01/28/25 01/28/25 Range/Units 20:01 05:48 05:48 RBC 3.47 L (3.80-5.40) m/uL Hgb 10.8 L (11.4-16.0) gm/dL Hct 31.3 L (34.0-46.0) % Plt Count 135 L (150-450) k/uL Sodium 136 L (137-145) mmol/L Chloride 112 H (98-107) mmol/L Carbon Dioxide 18 L (22-30) mmol/L BUN 59 H (7-17) mg/dL Creatinine 1.90 H (0.52-1.04) mg/dL Glucose 175 H (74-99) mg/dL POC Glucose (mg/dL) 233 H (70-110) mg/dL Urine Protein (Negative) Urine Glucose (UA) (Negative) 01/28/25 Range/Units 06:04 RBC (3.80-5.40) m/uL Hgb (11.4-16.0) gm/dL Hct (34.0-46.0) % Plt Count (150-450) k/uL Sodium (137-145) mmol/L Chloride (98-107) mmol/L Carbon Dioxide (22-30) mmol/L BUN (7-17) mg/dL Creatinine (0.52-1.04) mg/dL Glucose (74-99) mg/dL POC Glucose (mg/dL) 195 H (70-110) mg/dL Urine Protein (Negative) Urine Glucose (UA) (Negative)
[2025-01-28] MEDS: MAGNESIUM SULFATE-D5W PMX 1 GM in DEXTROSE/WATER 1 100ML.BAG IVPB SCH (14:05)
[2025-01-28 16:58] LABS: Glucose,Whole Blood 246 mg/dL (70-110)
[2025-01-28 20:31] LABS: Glucose,Whole Blood 245 mg/dL (70-110)
[2025-01-29 07:05] VITALS: RESP 18
[2025-01-29 07:09] LABS: Glucose,Whole Blood 231 mg/dL (70-110)
[2025-01-29 08:36] LABS: BUN/Creat Ratio 28.88 Ratio (12.00-20.00); Blood Urea Nitrogen 49.1 mg/dL (9.0-27.0); Calcium 8.4 mg/dL (8.7-10.3); Carbon Dioxide 22.2 mmol/L (21.6-31.8); Chloride 110 mmol/L (96-109); Glucose 211 mg/dL (70-110); Magnesium 1.8 mg/dL (1.5-2.4); Potassium 3.7 mmol/L (3.5-5.5); Sodium 142 mmol/L (135-145)
[2025-01-29 08:50] LABS: HCT 30.7 % (37.2-46.3); HGB 10.5 g/dL (12.0-15.0); MCH 30.8 pg (27.0-32.0); MCHC 34.2 g/dL (32.0-37.0); Mean Platelet Volume 11.4 FL (9.5-12.2); NRBC Per 100 WBC 0 X 10*3/uL (0.00-0.01); Platelet Count 143 X 10*3/uL (140-440); RBC 3.41 X 10*6/uL (4.10-5.20); RDW 12.9 % (11.5-14.5); WBC 7.02 X 10*3/uL (4.50-10.00)
[2025-01-29 12:12] LABS: Glucose,Whole Blood 206 mg/dL (70-110)
[2025-01-29 12:30] VITALS: BP 144/66; PULSE 46; TEMP 98.2
--- NOTE | 2025-01-29 14:23 | P.DS ---
Providers Date of admission: 01/26/25 10:53 Expected date of discharge: 01/29/25 Attending physician: Ilya Guillermo Consults: 01/26/25 18:15 Consult Physician Routine Consulting Provider: Carleen Miller Consult Reason/Comments: AKIo nCKD Do you want consulting provider notified?: Yes Primary care physician: [facility] Course: 74 year old F with PMH of DM, HTN, HLD, Hypothyroid, CKD stage III presents to the ED for intractable N/V for the past week. Unsure of inciting events. Went to urgent care on Sunday and was started on Doxycycline for acute bronchitis. When symptoms did not improve, she presented to the ED. In the ED patient underwent extensive evaluation. BP 149/65, HR 67, T 98.5F, RR 22, 98% on RA. CBC, CMP significant for Na 134, Cl 110, bicarb 12, BUN 82, Cr 3.09, glu 216. Mag 1.8. Lactic acid 1. UA 3+ glucose. Acetone neg. Amylase and Lipase wnl. COVID, RSV, Flu neg. EKG sinus rhythm with first degree AV block, incomplete RBBB, Q waves in V1-4. Patient is admitted for SUNNY on CKD with Nephrology consulted. Ultrasound kidneys/ureters/bladder unremarkable reporting no evidence for hydronephrosis or nephrolithiasis and anechoic urinary bladder. Started on IV hydration along with Rocephin and Azithromycin for CAP. Jardiance, Lasix, Losartan, Aldactone were held. Renal function returned to baseline. 01/29 Patient was seen and examined. Symptoms completely resolved. Feeling well. Wants to go home. CBC and BMP significant for RBC 3.41, Hg 10.5, Hct 30.7, Cl 110, BUN 49.1, Cr 1.7, glu 211, Ca 8.4. Mag 1.8. Discharge Plan: Diet: Cardiac Repeat BMP in 3 days to be followed up with PCP and Dr. Miller. Hold Glimepiride, Losartan, Spironolactone, Furosemide and Empagliflozin until resumed by your PCP depending on the results of the BMP. Follow up with PCP within 1-2 days of discharge. Follow up with Dr. Miller within 1 week of discharge. General: non toxic, no distress, appears at stated age Derm: warm, dry Head: atraumatic, normocephalic, symmetric Mouth: no lip lesion, mucus membranes moist Cardiovascular: S1S2 reg, no murmur Lungs: Decreased BS BL, no rales , no accessory muscle use Ext: no gross muscle atrophy, no edema, no contractures Neuro: no focal neuro deficits Psych: Alert and oriented. Discharge Diagnosis: SUNNY on CKD stage III with metabolic acidosis Community acquired PNA DM HTN HLD Hypothyroid Depression This complex discharge took 35 minutes to complete. Patient Condition at Discharge: Stable Plan - Discharge Summary Discharge Rx Participant: Yes New Discharge Prescriptions: Continue amLODIPine [Norvasc] 10 mg PO DAILY Insulin NPH Human Isophane [NovoLIN N] 18 unit SQ BID-W/MEALS Insulin Glargine (Lantus) [Lantus Vial] 20 unit SQ DAILY Doxycycline Hyclate 100 mg PO BID Sodium Bicarbonate Tab 650 mg PO DAILY calcitrioL [Rocaltrol] 0.25 mcg PO DAILY atenoloL [Tenormin] 50 mg PO DAILY Levothyroxine Sodium [Synthroid] 75 mcg PO DAILY Citalopram Hydrobromide [CeleXA] 20 mg PO DAILY hydrALAZINE HCL [Apresoline] 100 mg PO TID Acetaminophen [Tylenol Arthritis] 1,300 mg PO Q8H PRN PRN Reason: Pain Ergocalciferol [Vitamin D2 (1250 Mcg = 32228 Iu)] 1,250 mcg PO Q14D Atorvastatin [Lipitor] 40 mg PO HS ALPRAZolam [Xanax] 0.125 mg PO DIRECTED PRN PRN Reason: 1 HOUR PRIOR TO FILT Discontinued Glimepiride [Amaryl] 4 mg PO DAILY Losartan Potassium 100 mg PO DAILY Spironolactone [Aldactone] 25 mg PO DAILY #30 tab Furosemide [Lasix] 20 mg PO DAILY Empagliflozin [Jardiance] 25 mg PO DAILY Discharge Medication List Insulin NPH Human Isophane [NovoLIN N] 18 unit SQ BID-W/MEALS 02/14/17 [History] amLODIPine [Norvasc] 10 mg PO DAILY 02/14/17 [History] Insulin Glargine (Lantus) [Lantus Vial] 20 unit SQ DAILY 03/10/21 [History] Levothyroxine Sodium [Synthroid] 75 mcg PO DAILY 03/10/21 [History] Citalopram Hydrobromide [CeleXA] 20 mg PO DAILY 09/07/22 [History] Acetaminophen [Tylenol Arthritis] 1,300 mg PO Q8H PRN 05/31/23 [History] hydrALAZINE HCL [Apresoline] 100 mg PO TID 05/31/23 [History] ALPRAZolam [Xanax] 0.125 mg PO DIRECTED PRN 01/26/25 [History] Atorvastatin [Lipitor] 40 mg PO HS 01/26/25 [History] Doxycycline Hyclate 100 mg PO BID 01/26/25 [History] Ergocalciferol [Vitamin D2 (1250 Mcg = 59695 Iu)] 1,250 mcg PO Q14D 01/26/25 [History] Sodium Bicarbonate Tab 650 mg PO DAILY 01/26/25 [History] atenoloL [Tenormin] 50 mg PO DAILY 01/26/25 [History] calcitrioL [Rocaltrol] 0.25 mcg PO DAILY 01/26/25 [History] Follow up Appointment(s)/Referral(s): Carleen Miller MD [STAFF PHYSICIAN] - 02/16/25 1:40 pm Josh Ivory MD [Primary Care Provider] - 02/03/25 1:40 pm Ambulatory/Diagnostic Orders: Basic Metabolic Panel [LAB.AMB] Time Frame: 3 Days, Location: None Selected Patient Instructions/Handouts: Dehydration (DC), Acute Kidney Injury (DC), Pneumonia (DC) Activity/Diet/Wound Care/Special Instructions: Diet: Cardiac Repeat BMP in 3 days to be followed up with PCP and Dr. Miller. Hold Glimepiride, Losartan, Spironolactone, Furosemide and Empagliflozin until resumed by your PCP depending on the results of the BMP. Follow up with PCP within 1-2 days of discharge. Follow up with Dr. Miller within 1 week of discharge. Discharge Disposition: HOME SELF-CARE
--- NOTE | 2025-01-29 17:22 | P.PN ---
Subjective Patient is seen for follow-up for acute kidney injury and chronic kidney disease. Currently maintained on IV fluids. Renal function is improving. Overall patient is feeling better. She states she was able to tolerate oral intake. Serum creatinine down to 1.7 mg/dL Metabolic acidosis has improved Objective - Vital Signs Vital signs: Vital Signs Temp 98.2 F 01/29/25 12:08 Pulse 46 L 01/29/25 12:08 Resp 18 01/29/25 12:08 BP 144/66 01/29/25 12:08 Pulse Ox 96 01/29/25 12:08 FiO2 Intake & Output 01/28/25 01/29/25 01/29/25 18:59 06:59 18:59 Other: Voiding Method Toilet # Voids 3 3 - Exam Patient is awake, comfortable, no acute distress Alert oriented x 3 Examination of the heart S1 and S2 Examination of the lungs bilateral breath sounds are heard Abdomen is soft nontender Examination of lower extremities shows no evidence of edema TELEPHONE SERVICE ADVISER exam grossly intact - Labs CBC & Chem 7: 01/29/25 05:40 01/29/25 05:40 Labs: Abnormal Lab Results - Last 24 Hours (Table) 01/28/25 01/29/25 01/29/25 Range/Units 20:23 05:40 05:40 RBC 3.41 L (4.10-5.20) X 10*6/uL Hgb 10.5 L (12.0-15.0) g/dL Hct 30.7 L (37.2-46.3) % Chloride 110 H (96-109) mmol/L BUN 49.1 H (9.0-27.0) mg/dL Creatinine 1.7 H (0.6-1.5) mg/dL Est GFR (CKD-EPI) 31 L (>=60) BUN/Creatinine Ratio 28.88 H (12.00-20.00) Ratio Glucose 211 H (70-110) mg/dL POC Glucose (mg/dL) 245 H (70-110) mg/dL Calcium 8.4 L (8.7-10.3) mg/dL 01/29/25 01/29/25 Range/Units 07:07 12:11 RBC (4.10-5.20) X 10*6/uL Hgb (12.0-15.0) g/dL Hct (37.2-46.3) % Chloride (96-109) mmol/L BUN (9.0-27.0) mg/dL Creatinine (0.6-1.5) mg/dL Est GFR (CKD-EPI) (>=60) BUN/Creatinine Ratio (12.00-20.00) Ratio Glucose (70-110) mg/dL POC Glucose (mg/dL) 231 H 206 H (70-110) mg/dL Calcium (8.7-10.3) mg/dL Assessment and Plan Assessment: 1. Acute kidney injury, associated with severe volume depletion, improving with IV hydration. UA is benign. Ultrasound shows no evidence of obstruction. 2. [place] metabolic acidosis associated with diarrhea and GI fluid loss as well as acute kidney injury 3. History of hypertension, losartan on hold 4. Type 2 diabetes 5. 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 Baseline creatinine around 1.7 as of 12/08/2024 6. CKD mineral bone disorder maintained on calcitriol, calcium is 9.3 Plan: Patient can be discharged from nephrology standpoint. Follow-up as outpatient in 1 week Continue to hold angiotensin receptor blockers and diuretics
== END 2025-01-29 12:49 | disposition home or self-care (01) | DRG 682 ==
LOC: EC 07:36 → 6NMEDSUR 10:52 → OBSVTOIN 10:53 → 5NMEDONC 17:20 → 1SOBS 19:07 → 5NMEDONC 01-28 18:08
PROVIDERS: ADMIT Student in an Organized Health Care Education/Training Program; ATTEND Student in an Organized Health Care Education/Training Program
DX: N17.9 Acute kidney failure, unspecified (principal); J18.9 Pneumonia, unspecified organism; E87.20 Acidosis, unspecified; I50.32 Chronic diastolic (congestive) heart failure; I13.0 Hypertensive heart and chronic kidney disease with heart failure and stage 1 through stage 4 chronic kidney disease, or unspecified chronic kidney disease; E11.22 Type 2 diabetes mellitus with diabetic chronic kidney disease; N18.32 Chronic kidney disease, stage 3b; F32.A Depression, unspecified; E03.9 Hypothyroidism, unspecified; Z79.4 Long term (current) use of insulin; Z11.52 Encounter for screening for COVID-19; Z79.890 Hormone replacement therapy; E78.5 Hyperlipidemia, unspecified; E86.9 Volume depletion, unspecified; M89.8X9 Other specified disorders of bone, unspecified site; I44.0 Atrioventricular block, first degree; I45.10 Unspecified right bundle-branch block; J20.9 Acute bronchitis, unspecified; Z79.84 Long term (current) use of oral hypoglycemic drugs; Z79.899 Other long term (current) drug therapy; Z82.49 Family history of ischemic heart disease and other diseases of the circulatory system; Z86.16 Personal history of COVID-19; Z90.710 Acquired absence of both cervix and uterus; Z90.49 Acquired absence of other specified parts of digestive tract
CPT/HCPCS: 36415; 71045; 76770; 80048; 80053; 81003; 82009; 82150; 83605; 83690; 83735; 85025; 85027; 87636; 93005; 96361; 96365; 96366; 96375; 96376; 99285

== ENCOUNTER → 2025-02-02 | Outpatient (CLI) | payer MEDICARE, OTHER ==
[2025-02-02 15:37] LABS: Blood Urea Nitrogen 33.6 mg/dL (9.0-27.0); Calcium 8.7 mg/dL (8.7-10.3); Carbon Dioxide 21.1 mmol/L (21.6-31.8); Chloride 108 mmol/L (96-109); Glucose 220 mg/dL (70-110); Potassium 3.4 mmol/L (3.5-5.5); Sodium 143 mmol/L (135-145)
== END | disposition home or self-care (01) ==
LOC: LABWHC1 08:58
PROVIDERS: ATTEND Family Medicine
DX: N17.9 Acute kidney failure, unspecified (principal); N18.9 Chronic kidney disease, unspecified
CPT/HCPCS: 36415; 80048

== ENCOUNTER → 2025-02-09 | Outpatient (CLI) | payer MEDICARE, OTHER ==
[2025-02-09 15:15] LABS: ALT 31 U/L (8-44); AST 26 U/L (13-35); Albumin 3.7 g/dL (3.8-4.9); Albumin/Globulin Ratio 1.95 Ratio (1.60-3.17); Alkaline Phosphatase 133 U/L (41-126); BUN/Creat Ratio 16.93 Ratio (12.00-20.00); Blood Urea Nitrogen 23.7 mg/dL (9.0-27.0); Carbon Dioxide 22.5 mmol/L (21.6-31.8); Chloride 112 mmol/L (96-109); Globulin 1.9 g/dL (1.6-3.3); Glucose 239 mg/dL (70-110); Potassium 3.9 mmol/L (3.5-5.5); Sodium 144 mmol/L (135-145); Total Bilirubin 0.3 mg/dL (0.3-1.2); Total Protein 5.6 g/dL (6.2-8.2)
== END | disposition home or self-care (01) ==
LOC: LABWHC1 10:22
PROVIDERS: ATTEND Internal Medicine Nephrology
DX: N18.32 Chronic kidney disease, stage 3b (principal)
CPT/HCPCS: 36415; 80053

== ENCOUNTER → 2025-02-27 | Outpatient (CLI) | payer MEDICARE, OTHER ==
[2025-02-27 15:07] LABS: Basophils # (A) 0.01 X 10*3/uL (0.00-0.10); Basophils % (A) 0.2 %; Eosinophils # (A) 0.01 X 10*3/uL (0.04-0.35); Eosinophils % (A) 0.2 %; HCT 34.4 % (37.2-46.3); HGB 10.7 g/dL (12.0-15.0); Lymphocytes # (A) 1.13 X 10*3/uL (0.90-5.00); Lymphocytes % (A) 26.3 %; MCH 30.4 pg (27.0-32.0); MCHC 31.1 g/dL (32.0-37.0); MCV 97.7 FL (80.0-97.0); Mean Platelet Volume 10.7 FL (9.5-12.2); Monocytes # (A) 0.95 X 10*3/uL (0.20-1.00); Monocytes % (A) 22.1 %; NRBC Per 100 WBC 0 X 10*3/uL (0.00-0.01); Neutrophils # (A) 2.15 X 10*3/uL (1.80-7.70); Platelet Count 177 X 10*3/uL (140-440); RBC 3.52 X 10*6/uL (4.10-5.20); RDW 13.4 % (11.5-14.5)
[2025-02-27 15:37] LABS: ALT 16 U/L (8-44); AST 22 U/L (13-35); Albumin 3.9 g/dL (3.8-4.9); Albumin/Globulin Ratio 1.86 Ratio (1.60-3.17); Alkaline Phosphatase 119 U/L (41-126); BUN/Creat Ratio 14.27 Ratio (12.00-20.00); Blood Urea Nitrogen 21.4 mg/dL (9.0-27.0); Carbon Dioxide 21.9 mmol/L (21.6-31.8); Chloride 106 mmol/L (96-109); Chol/HDL Ratio 2.31 Ratio; Globulin 2.1 g/dL (1.6-3.3); Glucose 115 mg/dL (70-110); LDL Cholesterol,Calculated 101.7 mg/dL (0.0-131.0); Potassium 4.1 mmol/L (3.5-5.5); Sodium 141 mmol/L (135-145); T4, Free (Free Thyroxine) 1.39 ng/dL (0.80-1.80); Total Bilirubin 0.4 mg/dL (0.3-1.2)
== END | disposition home or self-care (01) ==
LOC: LABWHC1 07:22
PROVIDERS: ATTEND Family Medicine
DX: E11.65 Type 2 diabetes mellitus with hyperglycemia (principal); E03.9 Hypothyroidism, unspecified
CPT/HCPCS: 36415; 80053; 80061; 82043; 82570; 83036; 84439; 84443; 84481; 85025

== ENCOUNTER → 2025-04-16 | Outpatient (CLI) | payer MEDICARE, OTHER ==
[2025-04-16 09:48] VITALS: BP 147/76; PULSE 48; RESP 16; TEMP 97.5
--- NOTE | 2025-04-20 14:23 | P.PAINPG ---
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 She underwent a BL RFA L4-L5/ L5-S1 in May 2024 where she experienced 75% pain relief x 7 mo s/p procedure. Pain level is provoked at 9 /10 in intensity, predominantly axial, intermittent, localized in the lower lumbar spine, predominantly axial, stabbing in character w occasional radiation L & R of midline. Pain was provoked by walking for periods of 20 min or more. Pain is alleviated with injections, medications, topical, physician guided stretches every morning since Oct 2023, use of a walker/ wheelchair for ambulatory assistance, repositioning and rest. Interventional pain procedures completed include BL RFA L3-L5 (April 2022, Oct 2023, May 2024), CADENCE L2-L3 x2, L4-L5 x2 Patient is currently on Tyl Arthritis Patient denies any side effects of the medication(s), denies excessive drowsiness or sleepiness, denies suicidal ideation and reports that the current pain medication is helping to control the pain and improve activities of daily living. Patient denies any motor or sensory deficits. Patient denies any fever or night sweats, denies any change in the bowel movements or urination. Physical Examination: -Constitutional: Cooperative. Not in acute distress . - Neurologic: Cranial nerve II to XII intact. No focal neurological deficits. - Psychatric: Alert & oriented x 3. Matching mood & appropriate affect. Judgment and insight intact. - Musculoskeletal: Cervical spine: Muscle bulk/ tone/ strength in the bilateral upper extremities normal Vertebral body tenderness to palpation over Spurling test positive Distraction test positive Facet loading test positive TTP Thoracic spine Muscle bulk / tone/ strength in the bilateral paraspinal muscles normal Vertebral body tender to palpation over Facet loading test positive TTP Lumbar spine: Motor bulk/ tone/ strength lower extremities , thigh and legs : 5/5 Deep tendon reflexes : Normal Knee Jerk. Normal Ankle Jerk . Vertebral body tenderness to palpation Denson test positive Lumbar Facet Loading Test positive BL L4-L5, L5-S1 Straight Leg Raise: positive at 30 degrees right side/ left side Gaenslen's Test positive Sacral spine : Severe tenderness over the Sacroiliac joint: right side / left side Range of motion: Flexion of the lumbar spine <60 degrees Range of motion: Extension of the lumbar spine <20 degrees Gaenslen's Test positive right side / left side Jose test: positive right side / left side Thigh Thrust Test positive right side / left side Sacral Thrust Test positive right side / left side Assessment and plan: Chronic LBP secondary to radiculopathy, spondylosis with facet arthropathy without myelopathy Recommendation of BL RFA L4-L5/ L5-S1. Risks, benefits of procedure discussed and patient verbalized understanding. Protocol for discontinuation/continuation of medication surrounding procedure discussed. All questions answered. I have spent less than 30 minutes on patient care today. Dr Bellamy was available by phone for the evaluation of this patient. The time was u Minimal anesthesia including fentanyl and Versed if clinically indicated. Ad to review the medical records including relevant urine studies and Prescription history (MAPs), review of the available imaging, evaluation and examination of the patient, coordination of care with the medical staff and if applicable referring physicians, as well as creation of the medical record - Pain Location Bilateral Lower Back Non-Pharmacological Interventions: Home Exercise, Inactivity, Physical Therapy, Position/Reposition, Sitting, Stretching Pharmacological Interventions: Block, Epidural, PRN Medication, Topical M edication PQRS Narrative: Smoking Status Never smoker Blood Pressure 147/76 Pain Intensity [Bilateral 10 Lower Back] Scale Used Numeric (1 - 10) Hx Alcohol Use (MH) No Home Medications: Ambulatory Orders Insulin NPH Human Isophane [NovoLIN N] 18 unit SQ BID-W/MEALS 02/14/17 amLODIPine [Norvasc] 10 mg PO DAILY 02/14/17 Insulin Glargine (Lantus) [Lantus Vial] 20 unit SQ DAILY 03/10/21 Levothyroxine Sodium [Synthroid] 75 mcg PO DAILY 03/10/21 Citalopram Hydrobromide [CeleXA] 20 mg PO DAILY 09/07/22 Acetaminophen [Tylenol Arthritis] 1,300 mg PO Q8H PRN 05/31/23 hydrALAZINE HCL [Apresoline] 100 mg PO TID 05/31/23 ALPRAZolam [Xanax] 0.125 mg PO DIRECTED PRN 01/26/25 Atorvastatin [Lipitor] 40 mg PO HS 01/26/25 Ergocalciferol [Vitamin D2 (1250 Mcg = 37567 Iu)] 1,250 mcg PO Q14D 01/26/25 Sodium Bicarbonate Tab 650 mg PO DAILY 01/26/25 atenoloL [Tenormin] 50 mg PO DAILY 01/26/25 calcitrioL [Rocaltrol] 0.25 mcg PO DAILY 01/26/25 Furosemide [Lasix] 20 mg PO 04/16/25 Glimepiride [Amaryl] 4 mg PO AC-BRKFST 04/16/25 Controlled Substance Measures - Controlled Substance Measures Is patient prescribed a controlled substance at discharge?: No
== END ==
LOC: PNWHC3 09:19
PROVIDERS: ATTEND Specialist
DX: M47.26 Other spondylosis with radiculopathy, lumbar region (principal); M48.061 Spinal stenosis, lumbar region without neurogenic claudication
CPT/HCPCS: 99211

== ENCOUNTER 2025-05-14 07:45 | Day surgery (SDC) | payer MEDICARE ==
[2025-05-12 12:00] VITALS: BMI 37.7
[2025-05-14] MEDS: IV FLUID CONTINUATION 1,000 ML IV ONE ×2 (08:10→10:23)
[2025-05-14 08:22] VITALS: RESP 16; TEMP 97.3
[2025-05-14] MEDS: LACTATED RINGERS 1,000 ML IV SCH (08:24)
[2025-05-14 08:26] LABS: Glucose,Whole Blood 173 mg/dL (70-110)
[2025-05-14] MEDS ORDERED: fentaNYL (PF) 50 MCG/ML 2 ML AMP ONE (09:38)
[2025-05-14] MEDS ORDERED: MIDAZOLAM 2 MG/2 ML VIAL ONE (09:38)
[2025-05-14] MEDS ORDERED: ROPIVACAINE 5 MG/ML 30 ML VIAL ONE (09:38)
--- NOTE | 2025-05-14 10:15 | FL ---
Fluoroscopy History: FL guided pain mgmt statistic Fluoroscopy provided. [facility], , 05/14/2025 10:13 AM
--- NOTE | 2025-05-14 10:27 | P.PCN ---
Description of Procedure: Preprocedure diagnosis. 1. Lumbar spondylosis with facet joint arthropathy without myelopathy. 2. Lumbar degenerative disc disease. Procedure diagnosis. 1. Lumbar spondylosis with facet joint arthropathy without myelopathy. Space 2. Lumbar degenerative disc disease. Procedure.Bilateral radiofrequency thermocoagulation L3, L4 and L5 medial branch, with fluoroscopic guidance (fluoroscopy images are available in the radiology department) (to Denervate the facet joint at bilateral L4- 5 and L5-S1 levels) Anesthesia. Moderate sedation with intravenous Versed 2 mg and fentanyl 100 g and local infiltration with Lidocaine. Continuous pulse OX,BP,EKG and verbal communication was maintained with patient. Time. Start 0938. Stop 1009. EBL minimal. Procedure indication. The patient with low back pain secondary to lumbar facet arthropathy who he had more than 50% relief of her pain with previous diagnostic lumbar medial branch block with local anesthetics.The patient was seen and identified in the preoperative area. Risks: Benefits, complications, including but not limited to risk of infection, bleeding, ALLERGIC reaction to the medications and no complete pain relief and alternatives were discussed with the patient, the patient admitted to proceed with the procedure and signed the consent. Procedure description/technique. Patient was taken to the OR and timeout was completed. The patient was placed in prone position on the procedure table. The lumbar area was prepped and draped in the usual sterile fashion. After injecting 5 ml of 1% Lidocaine subcutaneously,using AP and then oblique, lateral view of fluoroscopy, 18-gauge 100 mm radiofrequency cannula with a 10 mm active tip was advanced and guided by fluoroscopy at the junction of supirior articular process with RIGHT ala of the sacrum, transverse process of L4&L5. Each site then underwent positive sensory testing with 50 Hz and 0-1 V and negative motor testing at 2.5 Hz and 0-3 V with local stimulation but no radicular symptoms down the leg. Thereafter each sites underwent radiofrequency thermocoagulation at 80C for 90 seconds after injecting 1 mL of preservative- free 0.5% ropivacaine. Repeat radiofrequency ablation was done at each points after rotating the needle 180 with same setting. This same procedure was repeated twice on the LEFT side at the junction of superior articular process with ala of sacrum,transverse process of L4, L5 with the same settings after positive sensory,negative motor stimulation and inf iltration of 1.0 ml 5% Ropivacaine at each site . RF needles were taken out. At the end of the procedure the skin was cleansed and Band-Aids were applied. Disposition patient tolerated the procedure well. No complication. She was placed in supine position and transferred to the recovery area in stable condition for observation and was discharged home from recovery room after meeting discharge criteria. Discharge instructions given to the patient by the staff. The patient were examined prior to discharge the patient will schedule a follow-up in the clinic in 2-4 weeks.
[2025-05-14 10:45] VITALS: BP 142/71; PULSE 82
== END 2025-05-14 11:04 ==
LOC: ORPAIN 07:45
PROVIDERS: ATTEND Anesthesiology
DX: M47.816 Spondylosis without myelopathy or radiculopathy, lumbar region (principal); M51.369 Other intervertebral disc degeneration, lumbar region without mention of lumbar back pain or lower extremity pain
CPT/HCPCS: 64636 ×2; 64635; J2250; J3010; J2795; 99152; 99153

== ENCOUNTER → 2025-06-04 | Outpatient (CLI) | payer MEDICARE ==
[2025-06-04 09:33] VITALS: BP 144/67; PULSE 50; RESP 18; TEMP 97.9
--- NOTE | 2025-06-04 12:51 | P.PAINPG ---
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 Pt states she experienced 80% pain relief s/p procedure. Pain level is provoked at 1 /10 in intensity, predominantly axial, intermittent, localized in the lower lumbar spine, predominantly axial, stabbing in character w occasional radiation L & R of midline. Pain was provoked by walking for periods of 20 min or more. Pain is alleviated with injections, medications, topical, physician guided stretches every morning since Oct 2023, use of a walker/ wheelchair for ambulatory assistance, repositioning and rest. Interventional pain procedures completed include BL RFA L3-L5 (April 2022, Oct 2023, May 2024, 05/14/25), CADENCE L2-L3 x2, L4-L5 x2 Patient is currently on Tyl Arthritis Patient denies any side effects of the medication(s), denies excessive drowsiness or sleepiness, denies suicidal ideation and reports that the current pain medication is helping to control the pain and improve activities of daily living. Patient denies any motor or sensory deficits. Patient denies any fever or night sweats, denies any change in the bowel movements or urination. Physical Examination: -Constitutional: Cooperative. Not in acute distress . - Neurologic: Cranial nerve II to XII intact. No focal neurological deficits. - Psychatric: Alert & oriented x 3. Matching mood & appropriate affect. Judgment and insight intact. - Musculoskeletal: Cervical spine: Muscle bulk/ tone/ strength in the bilateral upper extremities normal Vertebral body tenderness to palpation over Spurling test positive Distraction test positive Facet loading test positive TTP Thoracic spine Muscle bulk / tone/ strength in the bilateral paraspinal muscles normal Vertebral body tender to palpation over Facet loading test positive TTP Lumbar spine: Motor bulk/ tone/ strength lower extremities , thigh and legs : 5/5 Deep tendon reflexes : Normal Knee Jerk. Normal Ankle Jerk . Vertebral body tenderness to palpation Denson test positive Lumbar Facet Loading Test positive BL L4-L5, L5-S1 Straight Leg Raise: positive at 30 degrees right side/ left side Gaenslen's Test positive Sacral spine : Severe tenderness over the Sacroiliac joint: right side / left side Range of motion: Flexion of the lumbar spine <60 degrees Range of motion: Extension of the lumbar spine <20 degrees Gaenslen's Test positive right side / left side Jose test: positive right side / left side Thigh Thrust Test positive right side / left side Sacral Thrust Test positive right side / left side Assessment and plan: Chronic LBP secondary to radiculopathy, spondylosis with facet arthropathy without myelopathy Will manage residual pain and may RTC on an as needed basis. All questions answered. I have spent less than 30 minutes on patient care today. Dr Bellamy was available by phone for the evaluation of this patient. The time was u Minimal anesthesia including fentanyl and Versed if clinically indicated. Ad to review the medical records including relevant urine studies and Prescription history (MAPs), review of the available imaging, evaluation and examination of the patient, coordination of care with the medical staff and if applicable referring physicians, as well as creation of the medical record - Pain Location Lower Back Pharmacological Interventions: Medication PQRS Narrative: Smoking Status Never smoker Blood Pressure 144/67 Pain Intensity [Lower Back] 0 Scale Used Numeric (1 - 10) Hx Alcohol Use (MH) No Home Medications: Ambulatory Orders Insulin NPH Human Isophane [NovoLIN N] 18 unit SQ BID-W/MEALS 02/14/17 amLODIPine [Norvasc] 10 mg PO DAILY 02/14/17 Insulin Glargine (Lantus) [Lantus Vial] 20 unit SQ DAILY 03/10/21 Levothyroxine Sodium [Synthroid] 75 mcg PO DAILY 03/10/21 Citalopram Hydrobromide [CeleXA] 20 mg PO DAILY 09/07/22 Acetaminophen [Tylenol Arthritis] 1,300 mg PO Q8H PRN 05/31/23 hydrALAZINE HCL [Apresoline] 100 mg PO TID 05/31/23 ALPRAZolam [Xanax] 0.125 mg PO DIRECTED PRN 01/26/25 Atorvastatin [Lipitor] 40 mg PO HS 01/26/25 Ergocalciferol [Vitamin D2 (1250 Mcg = 59952 Iu)] 1,250 mcg PO Q14D 01/26/25 Sodium Bicarbonate Tab 650 mg PO DAILY 01/26/25 atenoloL [Tenormin] 50 mg PO DAILY 01/26/25 calcitrioL [Rocaltrol] 0.25 mcg PO DAILY 01/26/25 Furosemide [Lasix] 20 mg PO 04/16/25 Glimepiride [Amaryl] 4 mg PO AC-BRKFST 04/16/25 Controlled Substance Measures - Controlled Substance Measures Is patient prescribed a controlled substance at discharge?: No
== END ==
LOC: PNWHC3 09:03
PROVIDERS: ATTEND Specialist
DX: M47.26 Other spondylosis with radiculopathy, lumbar region (principal)
CPT/HCPCS: 99211